=== PATIENT | female | born 1995 | race Native Hawaiian/Other Pacific Islander ===

== ENCOUNTER 2017-02-06 12:43 | Emergency (ER) | payer MEDICAID, OTHER ==
[~2017-02-06] VITALS: Ht 160 cm; Wt 70.8 kg
[~2017-02-06 12:43] MED LIST: AMOX500C2 PO; CIPR-225 PO; FRS325T PO; HYDR-3812 PO; IBP600T1 PO; OXYC-12 PO; PNV91TAB3 PO; POLY17PO23 PO; PREN1TAB39 PO
--- OUTSIDE RECORDS SUMMARY | 2017-02-06 12:50 | XMS REPORT | Continuity of Care Document ---
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 Role Phone ANEL VOSS MD PCP Insurance Providers Payer Name Policy Number Subscriber Name Relationship [employer] [id number] Brina Taylor Self / Same As Patient [facility] [id number] Brina Taylor 16 Self / Same As Patient Advance Directives Directive Response Recorded Date/Time Advance Directives No 10/16/16 3:01am Organ Donor No 10/16/16 3:01am Resuscitation Status Full Code 10/16/16 3:01am Chief Complaint and Reason for Visit Chief Complaint Dental Problems/Pain Reason for Visit Dental caries Problems Active Problems Medical Problem Onset Date Status Dental caries Unknown Acute Medications Current Home Medications Medication Dose Units Route Directions Days/Qty Instructions Start Date Pnv95/Ferrous Fumarate/Fa 1 Each 1 Each Oral Daily 10/16/16 Amoxicillin 500 Mg 500 Mg Oral Three Times A Day 21 10/16/16 Hydrocodone/Acetaminophen 1 Each 1 Each Oral Every 4HRS as needed for Pain 12 10/16/16 Past Home Medications Medication Directions Ordered Status Vits W-Ca,Fe,Fa(<1MG) 1 Each Tablet, 1 Each Oral Daily 06/13/12 Discontinued Ibuprofen 600 Mg Tablet, 1 Each Oral Every 6 Hours as needed 06/15/12 Discontinued Oxycodone Hcl/Acetaminophen 1 Each Tablet, 1 - 2 Each Oral Every 4HRS as needed 06/15/12 Discontinued Ferrous Sulfate 325 Mg Tablet, 1 Tab Oral Daily 06/15/12 Discontinued Polyethylene Glycol 17 Gm Pack, 17 Gm Oral Daily 06/15/12 Discontinued Ciprofloxacin Hcl 500 Mg Tablet, 500 Mg Oral Twice A Day 10/30/15 Discontinued Social History Social History Problem Response Recorded Date/Time Alcohol Use Denies Use 10/30/2015 7:17am Recreational Drug Use No 10/30/2015 7:17am Recent Foreign Travel No 10/16/2016 3:01am Recent Infectious Disease Exposure No 10/16/2016 3:01am Smoking Status Never a Smoker 10/16/2016 3:01am Do you dip or chew tobacco? No 10/30/2015 7:17am Recent Hopitalizations No 10/16/2016 3:01am Query Response Start Date Stop Date Smoking Status Never a Smoker Hospital Discharge Instructions No hospital discharge instructions. Plan of Care Discharge Date 10/16/16 3:27am Disposition 01 HOME, SELF-CARE Condition at Discharge Stable Instructions/Education Provided Dental Pain (DC) Prescriptions See Medication Section Referrals ANEL VOSS MD - Primary Care Physician Additional Instructions/Education All discharge instructions reviewed with patient and/or family. Voiced understanding. Follow-up with a dentist LAY. Keep appointment with your doctor this morning at 9 a.m. as scheduled. Return for worse pain, fever, swelling, breathing or swallowing problems or other concerns as needed. Functional Status No functional status results. Allergies, Adverse Reactions, Alerts No known allergies. Immunizations No immunization records. Vital Signs Acute Vital Signs Vital Response Date/Time Temperature (Fahrenheit) 97.3 degrees F (97.6 - 99.5) 10/16/2016 3:01am Temperature (Calculated Celsius) 36.84053 degrees C (36.4 - 37.5) 10/16/2016 3:01am Temperature Source Temporal 10/16/2016 3:01am Pulse Rate (adult) 82 bpm (60 - 90) 10/16/2016 3:01am Respiratory Rate 18 bpm (12 - 24) 10/16/2016 3:01am O2 Sat by Pulse Oximetry 97 % (88 - 100) 10/16/2016 3:01am Blood Pressure 120/86 mm Hg 10/16/2016 3:01am Blood Pressure Mean 97 mm Hg 10/16/2016 3:01am Pain Numeric Pain Scale 10-Worst Possible Pain 10/16/2016 3:21am Height (Feet) 5 feet 10/16/2016 3:01am Height (Inches) 3 inches 10/16/2016 3:01am Height (Calculated Centimeters) 160.349783 cm 10/16/2016 3:01am Weight (Pounds) 180 pounds 10/16/2016 3:01am Weight (Calculated Grams) 90766.856 gm 10/16/2016 3:01am Weight (Calculated Kilograms) 81.730823 kilograms 10/16/2016 3:01am Calculated BMI 26.57 10/16/2016 3:01am Capillary Refill Capillary Refill Less Than 3 Seconds 10/16/2016 3:01am Results No known relevant diagnostic tests, laboratory data and/or discharge summary. Procedures No known history of procedures. Encounters Encounter Location Arrival/Admit Date Discharge/Depart Date Attending Provider Registered Emergency Room [facility] 10/16/16 2:59am REYMUNDO WILKINSON MD Recent Diagnosis
--- NOTE | 2017-02-06 13:14 | ED Integumentary General ---
General Chief Complaint: Skin/Wound Problems Stated Complaint: POSS BREAST INFECTION Nursing Triage Note: AMB TO ROOM HAS BEEN BREAST FEEDING LAST SEVERAL DAYS BREAST TENDER. THINKS SHE MAY HAVE MASTITIS Source: patient History of Present Illness Time seen by provider: 12:55 Initial Comments PT STATES SHE THINKS SHE HAS MASTITIS PT IS AND BREASTS HAVE BEEN CRACKED AND BLEEDING FOR A COUPLE OF WEEKS LAST NIGHT SHE HAD MILD BODY ACHES AND SUBJECTIVE FEVER--DOES NOT HAVE THOSE SYMPTOMS NOW ( BUT HAS TEMP OF 100.5 ON ARRIVAL TO ER) PT STATES IMMEDIATELY PRIOR TO ARRIVAL, SHE NOTICED SOME SLIGHT REDNESS AND SORENESS TO RIGHT BREAST AND LEFT WORK AND CAME STRAIGHT HERE DID NOT TAKE ANYTHING FOR SYMPTOMS DID NOT ATTEMPT TO CONTACT HER PCP PT STATES SHE HAD MASTITIS IN THE PAST AND THIS IS SIMILAR PCP: DR. VOSS Allergies and Home Medications Allergies Coded Allergies: No Known Drug Allergies (Unverified , 06/13/12) Home Medications Dicloxacillin Sodium 500 Mg Capsule #40 500 MG PO QID Prescribed by: ARYAN ARREGUIN on 02/06/17 1319 Pnv95/Ferrous Fumarate/FA 1 Each Tablet 1 EACH PO DAILY (Reported) Constitutional: see HPI EENTM: no symptoms reported Respiratory: no symptoms reported Cardiovascular: no symptoms reported Gastrointestinal: no symptoms reported Genitourinary: no symptoms reported : No Musculoskeletal: see HPI (BODY ACHES) Skin: see HPI Psychiatric/Neurological: No Symptoms Reported Endocrine: No Symptoms Reported Past Kzvswfj-Tllbrz-Hhbiyh Hx Patient Social History Alcohol Use: Denies Use Recreational Drug Use: No Smoking Status: Never a Smoker Recent Foreign Travel: No Contact w/Someone Who Travel: No Recent Infectious Disease Expo: No Recent Hopitalizations: No Immunizations Up To Date Tetanus Booster (TDap): Unknown PED Vaccines UTD: No Date of Influenza Vaccine: Oct 02, 2015 Seasonal Allergies Seasonal Allergies: No Surgeries HX Surgeries: No Respiratory Hx Respiratory Disorders: No Cardiovascular Hx Cardiac Disorders: No Neurological Hx Neurological Disorders: No Reproductive System Hx Reproductive Disorders: No Genitourinary Hx Genitourinary Disorders: No Gastrointestinal Hx Gastrointestinal Disorders: No Musculoskeletal Hx Musculoskeletal Disorders: No Endocrine Hx Endocrine Disorders: No HEENT HX ENT Disorders: No Cancer Hx Cancer: No Psychosocial Hx Psychiatric Problems: No Integumentary HX Skin/Integumentary Disorder: Yes (MASTITIS) Blood Transfusions Hx Blood Disorders: Yes (ANEMIA) Family Medical History Family Medial History: Patient reports no known family medical history. 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 VERY FAINT AREA OF ERYTHEMA AROUND 1200 AND 3:00. VERY MINIMAL TENDERNESS. NO INDURATION OR EVIDENCE OF ABSCESS. NO DRAINAGE FROM NIPPLE. NO BLEEDING. ) Progress/Results/Core Measures Results/Orders Lab Results Laboratory Tests Test 02/06/17 13:10 Range/Units Alanine Aminotransferase (ALT/SGPT) 24 0-55 U/L Albumin 4.4 3.2-4.5 G/DL Alkaline Phosphatase 133 40-136 U/L Anion Gap 10 5-14 MMOL/L Aspartate Amino Transf (AST/SGOT) 24 5-34 U/L BUN/Creatinine Ratio 12 Basophils # (Auto) 0.0 0.0-0.1 10^3/uL Basophils (%) (Auto) 0 0-10 % Blood Urea Nitrogen 9 7-18 MG/DL Calcium Level 9.7 8.5-10.1 MG/DL Carbon Dioxide Level 25 21-32 MMOL/L Chloride Level 104 98-107 MMOL/L Creatinine 0.75 0.60-1.30 MG/DL Eosinophils # (Auto) 0.1 0.0-0.3 10^3/uL Eosinophils (%) (Auto) 1 0-10 % Erythrocyte Sedimentation Rate 11 0-20 MM/HR Estimat Glomerular Filtration Rate > 60 Glucose Level 92 70-105 MG/DL Hematocrit 41 35-52 % Hemoglobin 13.7 11.5-16.0 G/DL Lactic Acid Level 1.21 0.50-2.00 MMOL/L Lymphocytes # (Auto) 1.7 1.0-4.0 X 10^3 Lymphocytes (%) (Auto) 18 12-44 % Mean Corpuscular Hemoglobin 27 25-34 PG Mean Corpuscular Hemoglobin Concent 34 32-36 G/DL Mean Corpuscular Volume 81 80-99 FL Mean Platelet Volume 10.0 7.4-10.4 FL Monocytes # (Auto) 0.6 0.0-1.0 X 10^3 Monocytes (%) (Auto) 6 0-12 % Neutrophils # (Auto) 6.8 1.8-7.8 X 10^3 Neutrophils (%) (Auto) 74 42-75 % Platelet Count 208 130-400 10^3/uL Potassium Level 3.6 3.6-5.0 MMOL/L Red Blood Count 5.03 4.35-5.85 10^6/uL Red Cell Distribution Width 13.6 10.0-14.5 % Sodium Level 139 135-145 MMOL/L Total Bilirubin 0.3 0.1-1.0 MG/DL Total Protein 8.2 6.4-8.2 G/DL White Blood Count 9.2 4.3-11.0 10^3/uL Micro Results Microbiology 02/06/17 Blood Culture - Preliminary, Resulted No growth 02/06/17 Blood Culture - Preliminary, Resulted No growth My Orders Orders-ARYAN ARREGUIN DO Saline Lock/Iv-Start (02/06/17 12:57) Cbc With Automated Diff (02/06/17 12:57) Comprehensive Metabolic Panel (02/06/17 12:57) Lactic Acid Analyzer (02/06/17 12:57) Blood Culture (02/06/17 12:57) Erythrocyte Sedimentation Rate (02/06/17 12:57) Clindamycin 600 Mg/50 Ml Ivpb (Cleocin P (02/06/17 13:15) Medications Given in ED Vital Signs/I&O Vital Sign - Last 12Hours 02/06/17 02/06/17 13:01 14:18 Temp 100.5 Pulse 90 90 Resp 18 18 B/P 127/81 Pulse Ox 98 98 O2 Delivery Room Air Blood Pressure Mean: 96 Departure Impression Impression: Primary Impression: Acute mastitis of right breast Disposition: 01 HOME, SELF-CARE Condition: Stable Departure-Patient Inst. Referrals: ANEL VOSS MD (PCP/Family) Primary Care Physician Patient Instructions: Mastitis (DC) Add. Discharge Instructions: TYLENOL AND MOTRIN NEEDED FOR PAIN OR FEVER FOLLOW UP WITH DR. VOSS IN 2-3 DAYS FOR FURTHER CARE All discharge instructions reviewed with patient and/or family. Voiced understanding. Scripts Dicloxacillin Sodium 500 Mg [id number] Mg PO QID #40 CAP Prov:ARYAN ARREGUIN K DO 02/06/17 RODRÍGUEZ,ARYAN K DO Feb 06, 2017 13:[address] VOSS IN 2-3 DAYS FOR FURTHER CARE All discharge instructions reviewed with patient and/or family. Voiced understanding. Scripts Dicloxacillin Sodium 500 Mg [id number] Mg PO QID #40 CAP Prov:NAZARIO ARREGUINA K DO 02/06/17 RODRÍGUEZ,ARYAN K DO Feb 06, 2017 13:14
[2017-02-06] MEDS ORDERED: CLINDAMYCIN 600 MG/50 ML IVPB 50 ML IV ONE (13:15)
[2017-02-06] MEDS ORDERED: DICL500C PO (13:19)
[2017-02-06 13:26] LABS: BASOPHILS % (AUTO) 0 % (0-10); EOSINOPHILS # (AUTO) 0.1 10^3/uL (0.0-0.3); EOSINOPHILS % (AUTO) 1 % (0-10); LYMPHOCYTES # (AUTO) 1.7 X 10^3 (1.0-4.0); LYMPHOCYTES % (AUTO) 18 % (12-44); MEAN CORPUSCULAR HEMOGLOBIN 27 PG (25-34); MEAN CORPUSCULAR HGB CONC 34 G/DL (32-36); MEAN CORPUSCULAR VOLUME 81 FL (80-99); MONOCYTES # (AUTO) 0.6 X 10^3 (0.0-1.0); MONOCYTES % (AUTO) 6 % (0-12); NEUTROPHILS # (AUTO) 6.8 X 10^3 (1.8-7.8); NEUTROPHILS % (AUTO) 74 % (42-75); PLATELET COUNT 208 10^3/uL (130-400); RED BLOOD COUNT 5.03 10^6/uL (4.35-5.85); RED CELL DISTRIBUTION WIDTH 13.6 % (10.0-14.5); WHITE BLOOD COUNT 9.2 10^3/uL (4.3-11.0)
[2017-02-06 13:45] LABS: ALANINE AMINOTRANSFERASE 24 U/L (0-55); ALBUMIN 4.4 G/DL (3.2-4.5); ANION GAP 10 MMOL/L (5-14); ASPARTATE AMINO TRANSFERASE 24 U/L (5-34); BILIRUBIN,TOTAL 0.3 MG/DL (0.1-1.0); BLOOD UREA NITROGEN 9 MG/DL (7-18); BUN/CREATININE RATIO 12; CALCIUM 9.7 MG/DL (8.5-10.1); CARBON DIOXIDE 25 MMOL/L (21-32); CHLORIDE 104 MMOL/L (98-107); CREATININE SERUM 0.75 MG/DL (0.60-1.30); ERYTHROCYTE SEDIMENTATION RATE 11 MM/HR (0-20); GFR ESTIMATED > 60; GLUCOSE 92 MG/DL (70-105); POTASSIUM 3.6 MMOL/L (3.6-5.0); SODIUM 139 MMOL/L (135-145); TOTAL PROTEIN 8.2 G/DL (6.4-8.2)
[2017-02-06 14:18] VITALS: BP 127/81
== END 2017-02-06 14:18 | disposition home or self-care (01) ==
LOC: EDUNIT# 12:43 → ER 12:46
DX: N61.0 Mastitis without abscess (principal)
CPT/HCPCS: 36415; 80053; 83605; 85025; 85652; 87040; 96365

== ENCOUNTER 2017-05-28 18:52 | Emergency (ER) | payer MEDICAID ==
[~2017-05-28] VITALS: Ht 160 cm; Wt 65.8 kg
[~2017-05-28 18:52] MED LIST changes: +DICL500C PO
--- OUTSIDE RECORDS SUMMARY | 2017-05-28 18:58 | XMS REPORT ---
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 Info Not Available Non Drug Allergy Problems Problem Type Condition ICD-9 Code Onset Dates Condition Status Assessment Encounter for PPD test V74.1 Active Assessment Pre-employment examination V70.5 Active Problem Acute upper respiratory infections of unspecified site 465.9 Active Medications No Known Medications Procedures Procedure Coding System Code Date DRUG SCREEN NON TLC DEVICES CPT-4 54986 Aug 20, 2015 Office Visit, Est Pt., Level 3 CPT-4 34759 Aug 20, 2015 TB INTRADERMAL TEST CPT-4 50394 Aug 20, 2015 Vital Signs Date/Time: Aug 20, 2015 Temperature 97.9 F Weight 160 lbs Height 63 in BMI 28.34 Index Blood Pressure Diastolic 66 mmHg Blood Pressure Systolic 104 mmHg Cardiac Monitoring Heart Rate 68 bpm Results Name Result Date Reference Range Unit Abnormality Flag TB INTRADERMAL URINE DRUG SCREEN (IN HOUSE) Summary Purpose eClinicalWorks Submission
--- OUTSIDE RECORDS SUMMARY | 2017-05-28 18:58 | XMS REPORT | Continuity of Care Document ---
Author Author [facility] Address Unknown Phone Unavailable Allergies Active Description Code Type Severity Reaction Onset Reported/Identified Relationship to Patient Clinical Status Yes No Known Drug Allergies [id number] Drug Allergy Unknown N/ A 06/13/2012 Medications Problems Date Dx Coded Attending Type Code Diagnosis Diagnosed By 10/15/2010 Ot 626.4 IRREGULAR MENSTRUATION 06/15/2012 Ot 669.81 COMP LAB/DELIV NEC-DELIV 06/15/2012 Ot V06.1 [id number], COMBINED [ 06/15/2012 Ot V06.4 [id number] 06/15/2012 Ot V27.0 DELIVER-SINGLE LIVEBORN 11/29/2014 ENRIKE SIMMS APRN 465.9 UPPER RESPIRATORY INFECTION 10/30/2015 Ot 649.63 10/30/2015 JASPREET GAINES, ASHLEY Felton Ot N39.0 URINARY TRACT INFECTION, SITE NOT SPECIF 03/20/2016 ANEL VOSS MD Ot Z34.90 ENCNTR FOR SUPRVSN OF NORMAL , 04/03/2016 ANEL VOSS MD Ot Z34.90 ENCNTR FOR SUPRVSN OF NORMAL , 05/28/2016 ANEL VOSS MD Ot Z34.90 ENCNTR FOR SUPRVSN OF NORMAL , 05/29/2016 ANEL VOSS MD Ot Z36 ENCOUNTER FOR SCREENING OF MOT 05/29/2016 ANEL VOSS MD, Ot Z3A.19 19 WEEKS GESTATION OF 06/01/2016 ANEL VOSS MD, Ot Z36 ENCOUNTER FOR SCREENING OF MOT 06/01/2016 ANEL VOSS MD, Ot Z3A.19 19 WEEKS GESTATION OF 06/08/2016 ANEL VOSS MD Ot Z36 ENCOUNTER FOR SCREENING OF MOT 06/08/2016 ANEL VOSS MD, Ot Z3A.19 19 WEEKS GESTATION OF 07/10/2016 Ot 649.63 UTERINE SIZE DATE DISCREPANCY, ANTEPARTU 07/10/2016 ANEL VOSS MD Ot Z36 ENCOUNTER FOR SCREENING OF MOT 07/10/2016 ANEL VOSS MD Ot Z3A.19 19 WEEKS GESTATION OF 07/11/2016 ANEL VOSS MD Ot Z36 ENCOUNTER FOR SCREENING OF MOT 07/11/2016 BIPIN GAINES, ANEL Brown Ot Z3A.19 19 WEEKS GESTATION OF 07/16/2016 ANEL VOSS MD Ot Z36 ENCOUNTER FOR SCREENING OF MOT 07/16/2016 BIPIN GAINES, ANEL Brown Ot Z3A.19 19 WEEKS GESTATION OF 07/16/2016 Ot 649.63 UTERINE SIZE DATE DISCREPANCY, ANTEPARTU 07/16/2016 ANEL VOSS MD Ot Z36 ENCOUNTER FOR SCREENING OF MOT 07/16/2016 ANEL VOSS MD Ot Z3A.19 19 WEEKS GESTATION OF 07/31/2016 Ot 649.63 UTERINE SIZE DATE DISCREPANCY, ANTEPARTU 07/31/2016 ANEL VOSS MD Ot Z34.90 ENCNTR FOR SUPRVSN OF NORMAL , 07/31/2016 ANEL VOSS MD Ot Z36 ENCOUNTER FOR SCREENING OF MOT 07/31/2016 ANEL VOSS MD Ot Z3A.19 19 WEEKS GESTATION OF 07/31/2016 ANEL VOSS MD Ot Z36 ENCOUNTER FOR SCREENING OF MOT 08/02/2016 ANEL VOSS MD Ot Z36 ENCOUNTER FOR SCREENING OF MOT 08/13/2016 ANEL VOSS MD Ot Z36 ENCOUNTER FOR SCREENING OF MOT 08/15/2016 ANEL VOSS MD Ot Z36 ENCOUNTER FOR SCREENING OF MOT 10/16/2016 Ot 649.63 UTERINE SIZE DATE DISCREPANCY, ANTEPARTU 10/16/2016 ANEL VOSS MD Ot Z34.90 ENCNTR FOR SUPRVSN OF NORMAL , 10/16/2016 ANEL VOSS MD Ot Z36 ENCOUNTER FOR SCREENING OF MOT 10/16/2016 ANEL VOSS MD Ot Z3A.19 19 WEEKS GESTATION OF 10/16/2016 ANEL VOSS MD, Ot Z36 ENCOUNTER FOR SCREENING OF MOT 10/16/2016 Ot 649.63 UTERINE SIZE DATE DISCREPANCY, ANTEPARTU 10/16/2016 ANEL VOSS MD, Ot Z34.90 ENCNTR FOR SUPRVSN OF NORMAL , 10/16/2016 ANEL VOSS MD, Ot Z36 ENCOUNTER FOR SCREENING OF MOT 10/16/2016 ANEL VOSS MD, Ot Z3A.19 19 WEEKS GESTATION OF 10/16/2016 ANEL VOSS MD, Ot Z36 ENCOUNTER FOR SCREENING OF MOT 10/16/2016 REYMUNDO WILKINSON MD Ot K02.9 DENTAL CARIES, UNSPECIFIED 10/16/2016 REYMUNDO WILKINSON MD, Ot K08.9 DISORDER OF TEETH AND SUPPORTING STRUCTU 10/26/2016 ANEL VOSS MD, Ot O48.0 POST-TERM 10/26/2016 ANEL VOSS MD, Ot Z23 ENCOUNTER FOR IMMUNIZATION 10/26/2016 ANEL VOSS MD, Ot Z37.0 SINGLE LIVE 10/26/2016 ANEL VOSS MD, Ot Z3A.41 41 WEEKS GESTATION OF 11/01/2016 REYMUNDO WILKINSON MD Ot K02.9 DENTAL CARIES, UNSPECIFIED 11/01/2016 REYMUNDO WILKINSON MD Ot K08.9 DISORDER OF TEETH AND SUPPORTING STRUCTU 02/01/2017 ANEL VOSS MD, Ot Z34.90 ENCNTR FOR SUPRVSN OF NORMAL , 02/06/2017 Ot 649.63 UTERINE SIZE DATE DISCREPANCY, ANTEPARTU 02/06/2017 ANEL VOSS MD, Ot Z34.90 ENCNTR FOR SUPRVSN OF NORMAL , 02/06/2017 ANEL VOSS MD, Ot Z36 ENCOUNTER FOR SCREENING OF MOT 02/06/2017 ANEL VOSS MD, Ot Z3A.19 19 WEEKS GESTATION OF 02/06/2017 ANEL VOSS MD, Ot Z36 ENCOUNTER FOR SCREENING OF MOT 02/06/2017 RODRÍGUEZ DO, ARYAN K Ot N61.0 MASTITIS WITHOUT ABSCESS 02/06/2017 Ot 649.63 UTERINE SIZE DATE DISCREPANCY, ANTEPARTU 02/06/2017 ANEL VOSS MD, Ot Z34.90 ENCNTR FOR SUPRVSN OF NORMAL , 02/06/2017 ANEL VOSS MD, Ot Z36 ENCOUNTER FOR SCREENING OF MOT 02/06/2017 ANEL VOSS MD, Ot3A.19 19 WEEKS GESTATION OF 02/06/2017 ANEL VOSS MD, Ot36 ENCOUNTER FOR SCREENING OF MOT 02/06/2017 ANEL VOSS MD, Ot Z34.90 ENCNTR FOR SUPRVSN OF NORMAL , 02/06/2017 ANEL VOSS MD, Ot36 ENCOUNTER FOR SCREENING OF MOT 02/06/2017 ANEL VOSS MD, Ot3A.19 19 WEEKS GESTATION OF 02/06/2017 ANEL VOSS MD, Ot36 ENCOUNTER FOR SCREENING OF MOT 02/07/2017 ARYAN ARREGUIN DO Ot N61.0 MASTITIS WITHOUT ABSCESS 02/12/2017 RODRÍGUEZ SAM ARYAN K Ot N61.0 MASTITIS WITHOUT ABSCESS 02/14/2017 ARYAN ARREGUIN DO K Ot N61.0 MASTITIS WITHOUT ABSCESS Procedures Code Description Performed By Performed On 72.71 VACUUM EXT DEL W EPISIOT 06/13/2012 [id number] DIVISION OF FEMALE PERINEUM, EXTERNAL AP 10/24/2016 [id number] EXTRACTION OF PRODUCTS OF CONCEPTION, [place] 10/24/2016 [id number] INTRODUCE OTH THERAP SUBST IN PERIPH VEI 10/24/2016 Results Test Result Range Complete blood count (CBC) with automated white blood cell (WBC) differential - 10/24/16 06:45 Blood leukocytes automated count (number/volume) 8.8 10*3/ uL 4.3-11.0 Blood erythrocytes automated count (number/volume) 4.22 10*6 /uL 4.35-5.85 Venous blood hemoglobin measurement (mass/volume) 11.2 g/dL 11.5-16.0 Blood hematocrit (volume fraction) 34 % 35-52 Automated erythrocyte mean corpuscular volume 81 [foz_us] 80-99 Automated erythrocyte mean corpuscular hemoglobin (mass per erythrocyte) 27 pg 25-34 Automated erythrocyte mean corpuscular hemoglobin concentration measurement ( mass/volume) 33 g/dL 32-36 Automated erythrocyte distribution width ratio 15.9 % 10.0-14.5 Automated blood platelet count (count/volume) 242 10*3/uL 130-400 Automated blood platelet mean volume measurement 9.9 [foz_us ] 7.4-10.4 Automated blood neutrophils/100 leukocytes 69 % 42-75 Automated blood lymphocytes/100 leukocytes 23 % 12-44 Blood monocytes/100 leukocytes 7 % 0-12 Automated blood eosinophils/100 leukocytes 1 % 0-10 Automated blood basophils/100 leukocytes 0 % 0-10 Blood neutrophils automated count (number/volume) 6.0 10*3 1.8-7.8 Blood lymphocytes automated count (number/volume) 2.0 10*3 1.0-4.0 Blood monocytes automated count (number/volume) 0.6 10*3 0.0-1.0 Automated eosinophil count 0.1 10*3/uL 0.0-0.3 Automated blood basophil count (count/volume) 0.0 10*3/uL 0.0-0.1 Blood type T Indirect antibody screen panel - 10/24/16 06:45 ABO+Rh group OP NRG Transfusion band number [id number] Blood group antibody screen NEGATIVE NR Complete blood count (CBC) with automated white blood cell (WBC) differential - 10/25/16 06:00 Blood leukocytes automated count (number/volume) 13.6 10*3/ uL 4.3-11.0 Blood erythrocytes automated count (number/volume) 3.71 10*6 /uL 4.35-5.85 Venous blood hemoglobin measurement (mass/volume) 9.9 g/dL 11.5-16.0 Blood hematocrit (volume fraction) 31 % 35-52 Automated erythrocyte mean corpuscular volume 82 [foz_us] 80-99 Automated erythrocyte mean corpuscular hemoglobin (mass per erythrocyte) 27 pg 25-34 Automated erythrocyte mean corpuscular hemoglobin concentration measurement ( mass/volume) 33 g/dL 32-36 Automated erythrocyte distribution width ratio 16.1 % 10.0-14.5 Automated blood platelet count (count/volume) 201 10*3/uL 130-400 Automated blood platelet mean volume measurement 9.5 [foz_us ] 7.4-10.4 Automated blood neutrophils/100 leukocytes 72 % 42-75 Automated blood lymphocytes/100 leukocytes 21 % 12-44 Blood monocytes/100 leukocytes 7 % 0-12 Automated blood eosinophils/100 leukocytes 1 % 0-10 Automated blood basophils/100 leukocytes 0 % 0-10 Blood neutrophils automated count (number/volume) 9.8 10*3 1.8-7.8 Blood lymphocytes automated count (number/volume) 2.8 10*3 1.0-4.0 Blood monocytes automated count (number/volume) 0.9 10*3 0.0-1.0 Automated eosinophil count 0.1 10*3/uL 0.0-0.3 Automated blood basophil count (count/volume) 0.0 10*3/uL 0.0-0.1 Complete blood count (CBC) with automated white blood cell (WBC) differential - 02/06/17 13:10 Blood leukocytes automated count (number/volume) 9.2 10*3/ uL 4.3-11.0 Blood erythrocytes automated count (number/volume) 5.03 10*6 /uL 4.35-5.85 Venous blood hemoglobin measurement (mass/volume) 13.7 g/dL 11.5-16.0 Blood hematocrit (volume fraction) 41 % 35-52 Automated erythrocyte mean corpuscular volume 81 [foz_us] 80-99 Automated erythrocyte mean corpuscular hemoglobin (mass per erythrocyte) 27 pg 25-34 Automated erythrocyte mean corpuscular hemoglobin concentration measurement ( mass/volume) 34 g/dL 32-36 Automated erythrocyte distribution width ratio 13.6 % 10.0-14.5 Automated blood platelet count (count/volume) 208 10*3/uL 130-400 Automated blood platelet mean volume measurement 10.0 [foz_ us] 7.4-10.4 Automated blood neutrophils/100 leukocytes 74 % 42-75 Automated blood lymphocytes/100 leukocytes 18 % 12-44 Blood monocytes/100 leukocytes 6 % 0-12 Automated blood eosinophils/100 leukocytes 1 % 0-10 Automated blood basophils/100 leukocytes 0 % 0-10 Blood neutrophils automated count (number/volume) 6.8 10*3 1.8-7.8 Blood lymphocytes automated count (number/volume) 1.7 10*3 1.0-4.0 Blood monocytes automated count (number/volume) 0.6 10*3 0.0-1.0 Automated eosinophil count 0.1 10*3/uL 0.0-0.3 Automated blood basophil count (count/volume) 0.0 10*3/uL 0.0-0.1 Blood lactic acid measurement (moles/volume) - 02/06/17 13:10 Blood lactic acid measurement (moles/volume) 1.21 mmol/L 0.50-2.00 Erythrocyte sedimentation rate by westergren method - 02/06/17 13:10 Erythrocyte sedimentation rate by westergren method 11 mm 0-20 Comprehensive metabolic panel - 02/06/17 13:10 Serum or plasma sodium measurement (moles/volume) 139 mmol/ L 135-145 Serum or plasma potassium measurement (moles/volume) 3.6 mmol/L 3.6-5.0 Serum or plasma chloride measurement (moles/volume) 104 mmol /L 98-107 Carbon dioxide 25 mmol/L 21-32 Serum or plasma anion gap determination (moles/volume) 10 mmol/L 5-14 Serum or plasma urea nitrogen measurement (mass/volume) 9 mg /dL 7-18 Serum or plasma creatinine measurement (mass/volume) 0.75 mg /dL 0.60-1.30 Serum or plasma urea nitrogen/creatinine mass ratio 12 NRG Serum or plasma creatinine measurement with calculation of estimated glomerular filtration rate > NRG Serum or plasma glucose measurement (mass/volume) 92 mg/dL 70-105 Serum or plasma calcium measurement (mass/volume) 9.7 mg/dL 8.5-10.1 Serum or plasma total bilirubin measurement (mass/volume) 0.3 mg/dL 0.1-1.0 Serum or plasma alkaline phosphatase measurement (enzymatic activity/volume) 133 U/L 40-136 Serum or plasma aspartate aminotransferase measurement (enzymatic activity/ volume) 24 U/L 5-34 Serum or plasma alanine aminotransferase measurement (enzymatic activity/volume ) 24 U/L 0-55 Serum or plasma protein measurement (mass/volume) 8.2 g/dL 6.4-8.2 Serum or plasma albumin measurement (mass/volume) 4.4 g/dL 3.2-4.5 Bacterial blood culture - 02/06/17 13:10 Bacterial blood culture NG NRG Bacterial blood culture - 02/06/17 13:37 Bacterial blood culture NG NRG Encounters ACCT No. Visit Date/Time Discharge Status Pt. Type Provider Facility Loc./Unit Complaint [id number] 11/29/2014 17:49:00 11/29/2014 23: 59:59 CLS Outpatient ENRIKE SIMMS APRN
--- OUTSIDE RECORDS SUMMARY | 2017-05-28 18:58 | XMS REPORT ---
Author Author CEDRIC HESS [facility] eClinicalWorks Address Unknown Phone Unavailable Care Team Providers Care Electromechanical Assembler Name Role Phone CEDRIC HESS Unavailable Allergies No Known Allergies Problems Problem Type Condition Code Onset Dates Condition Status Assessment Encounter for immunization Z23 Active Problem Acute upper respiratory infections of unspecified site 465.9 Active Medications No Known Medications Procedures Procedure Coding System Code Date TDAP (BOOSTRIX) CPT-4 67340 Sep 26, 2015 SINGLE IMMUNIZATION ADMIN CPT-4 29897 Sep 26, 2015 FLUARIX QUAD (3 & UP)-GSK-2014 CPT-4 80916 Sep 26, 2015 IMMUNIZATION ADMIN, EACH ADD (please include units) CPT-4 96077 Sep 26, 2015 Results No Known Results Immunizations Vaccine Administration Date FLUARIX QUAD (3 & UP)-GSK-2014Sep 26, 2015 TDAP (BOOSTRIX) Sep 26, 2015 Summary Purpose eClinicalWorks Submission
--- OUTSIDE RECORDS SUMMARY | 2017-05-28 18:58 | XMS REPORT ---
Author Author JARAD DAVIS Organization eClinicalWorks Address Unknown Phone Unavailable Care Team Providers Care Director Of Acquisitions Name Role Phone JARAD DAVIS CP Unavailable Allergies, Adverse Reactions, Alerts Substance Reaction Event Type N.K.D.A. Info Not Available Non Drug Allergy Problems Problem Type Condition Code Onset Dates Condition Status Problem Acute upper respiratory infections of unspecified site 465.9 Active Assessment Otitis media H66.90 Active Problem Otitis media H66.90 Active Assessment Seasonal allergic rhinitis J30.2 Active Medications Medication Code System Code Instructions Start Date End Date Status Dosage Azithromycin [facility] [address]-46 250 MG Orally Once a day Oct 06, 2015 Oct 11, 2015 2 tablets on the first day, then 1 tablet daily for 4 days Claritin [facility] [address]-32 10 MG Orally Once a day Oct 06, 2015 Dec 05, 2015 1 tablet Procedures Procedure Coding System Code Date Office Visit, Est Pt., Level 3 CPT-4 58987 Oct 06, 2015 Vital Signs Date/Time: Oct 06, 2015 Temperature 97.9 F Weight 157.8 lbs Height 63 in BMI 27.95 Index Blood Pressure Diastolic 62 mmHg Blood Pressure Systolic 104 mmHg Cardiac Monitoring Heart Rate 64 bpm Results No Known Results Summary Purpose eClinicalWorks Submission
--- OUTSIDE RECORDS SUMMARY | 2017-05-28 18:58 | XMS REPORT ---
Author Author ANEL VOSS [facility] eClinicalWorks Address Unknown Phone Unavailable Care Team Providers Care Hypoid Gear Generator Name Role Phone ANEL VOSS Unavailable Allergies No Known Allergies Problems Problem Type Condition ICD-9 Code Onset Dates Condition Status Problem Acute upper respiratory infections of unspecified site 465.9 Active Medications No Known Medications Results No Known Results Summary Purpose eClinicalWorks Submission
--- OUTSIDE RECORDS SUMMARY | 2017-05-28 18:58 | XMS REPORT ---
Author Author PACHECO MANNING [facility] eClinicalWorks Address Unknown Phone Unavailable Care Team Providers Care Planning Manager Name Role Phone PACHECO MANNING CP Unavailable Allergies No Known Allergies Problems Problem Type Condition ICD-9 Code Onset Dates Condition Status Assessment Dental examination V72.2 Active Problem Acute upper respiratory infections of unspecified site 465.9 Active Medications No Known Medications Procedures Procedure Coding System Code Date INTRAORL-PERIAPICAL 1 FILM 12948 CPT-4 D0220 Jul 26, 2015 BITEWING - SINGLE FILM CPT-4 D0270 Jul 26, 2015 LTD ORAL EVALUATION - PROBLEM FOCUS CPT-4 D0140 Jul 26, 2015 Results No Known Results Summary Purpose eClinicalWorks Submission
[2017-05-28] MEDS ORDERED: biotin (19:22)
[2017-05-28] MEDS ORDERED: FENUGREEK (19:22)
[2017-05-28] MEDS ORDERED: LACTATED RINGERS 1,000 ML IV ONE (19:44)
[2017-05-28] MEDS ORDERED: ACETAMINOPHEN 500 MG TAB (TYLENOL) PO STA (19:44)
[2017-05-28] MEDS ORDERED: IBUPROFEN 800 MG (MOTRIN) TAB PO STA (19:44)
[2017-05-28] MEDS ORDERED: cefTRIAXone INJECTION 2,000 MG in NS (IVPB) 50 ML IV ONE (19:45)
[2017-05-28 20:26] LABS: BASOPHILS % (AUTO) 0 % (0-10); EOSINOPHILS # (AUTO) 0.1 10^3/uL (0.0-0.3); EOSINOPHILS % (AUTO) 1 % (0-10); LYMPHOCYTES # (AUTO) 1.3 X 10^3 (1.0-4.0); LYMPHOCYTES % (AUTO) 17 % (12-44); MEAN CORPUSCULAR HEMOGLOBIN 27 PG (25-34); MEAN CORPUSCULAR HGB CONC 33 G/DL (32-36); MEAN CORPUSCULAR VOLUME 81 FL (80-99); MEAN PLATELET VOLUME 9.9 FL (7.4-10.4); MONOCYTES # (AUTO) 0.2 X 10^3 (0.0-1.0); MONOCYTES % (AUTO) 3 % (0-12); NEUTROPHILS # (AUTO) 5.8 X 10^3 (1.8-7.8); NEUTROPHILS % (AUTO) 79 % (42-75); PLATELET COUNT 229 10^3/uL (130-400); RED BLOOD COUNT 5.09 10^6/uL (4.35-5.85); RED CELL DISTRIBUTION WIDTH 11.9 % (10.0-14.5); WHITE BLOOD COUNT 7.4 10^3/uL (4.3-11.0)
[2017-05-28 20:47] LABS: ALANINE AMINOTRANSFERASE 28 U/L (0-55); ALBUMIN 4.7 GM/DL (3.2-4.5); ANION GAP 14 MMOL/L (5-14); ASPARTATE AMINO TRANSFERASE 29 U/L (5-34); BILIRUBIN,TOTAL 0.2 MG/DL (0.1-1.0); BLOOD UREA NITROGEN 12 MG/DL (7-18); BUN/CREATININE RATIO 15; CALCIUM 10.3 MG/DL (8.5-10.1); CARBON DIOXIDE 23 MMOL/L (21-32); CHLORIDE 103 MMOL/L (98-107); CREATININE SERUM 0.78 MG/DL (0.60-1.30); GFR ESTIMATED > 60; GLUCOSE 103 MG/DL (70-105); POTASSIUM 3.5 MMOL/L (3.6-5.0); SODIUM 140 MMOL/L (135-145); TOTAL PROTEIN 8.5 GM/DL (6.4-8.2)
[2017-05-28] MEDS ORDERED: DICL500C PO (21:09)
[2017-05-28] MEDS ORDERED: HYDR-3816 PO (21:09)
--- NOTE | 2017-05-28 21:09 | ED General ---
General Chief Complaint: General Problems/Pain Stated Complaint: LT BREAST PAIN Nursing Triage Note: Pt to ED 9, reports developing left breast pain around noon today. Pt is . is 7 mo old. Hx bilat mastitis Nursing Sepsis Screen: No Definite Risk Source of Information: Patient History of Present Illness Time Seen by Provider: 19:30 Initial Comments PT ARRIVES VIA POV C/O LEFT BREAST PAIN AND SWELLING SINCE NOON TODAY HAS HAD SUBJECTIVE FEVER THIS AFTERNOON-- PT IS HAVING CHILLS ON ARRIVAL TO ER PT HAS NOT TAKEN ANYTHING FOR PAIN OR FEVER PT DELIVERED 10/24/16, AND IS STILL , BUT WORKS 8 HOURS A DAY AND DOES NOT PUMP AT ALL DURING THAT TIME, BUT DOES FEED EVERY COUPLE OF HOURS WHEN SHE IS AT HOME AND AWAKE. PT FED/PUMPED JUST PRIOR TO ARRIVAL. PT HAS HAD A FEW BOUTS OF MASTITIS WITH THIS BABY AND WITH PREVIOUS BABY, AND THIS IS SIMILAR LAST TIME SHE WAS SEEN HERE WAS 02/06/2017 AND SYMPTOMS WERE MILD AND ON RIGHT BREAST, GIVEN RX FOR DICLOXACILLIN, BUT PT DID NOT GET IT FILLED--STATES HER SYMPTOMS WERE BETTER BY THE NEXT DAY. PCP: DR. VOSS Allergies and Home Medications Allergies Coded Allergies: No Known Drug Allergies (Unverified , 06/13/12) Home Medications Dicloxacillin Sodium 500 Mg Capsule, 500 MG PO QID, #40 Prescribed by: ARYAN ARREGUIN on 05/28/172108 Hydrocodone/Acetaminophen 1 Each Tablet, 1-2 EACH PO Q4H, #10 Prescribed by: ARYAN ARREGUIN on 05/28/172108 [biotin] , (Reported) [fenugreek] , (Reported) Constitutional: see HPI, chills, fever EENTM: no symptoms reported Respiratory: no symptoms reported Cardiovascular: no symptoms reported Gastrointestinal: no symptoms reported Genitourinary: no symptoms reported : No LMP: Mar 02, 2017 (NO CONTROL) Musculoskeletal: no symptoms reported Skin: see HPI Psychiatric/Neurological: No Symptoms Reported Hematologic/Lymphatic: No Symptoms Reported Immunological/Allergic: no symptoms reported Past Ejpptdo-Htyjlp-Wpysqj Hx Patient Social History Alcohol Use: Denies Use Recreational Drug Use: No Smoking Status: Never a Smoker 2nd Hand Smoke Exposure: No Recent Foreign Travel: No Contact w/Someone Who Travel: No Recent Infectious Disease Expo: No Recent Hopitalizations: No Immunizations Up To Date Tetanus Booster (TDap): Unknown PED Vaccines UTD: No Date of Influenza Vaccine: Oct 02, 2015 Seasonal Allergies Seasonal Allergies: No Surgeries HX Surgeries: No Respiratory Hx Respiratory Disorders: No Cardiovascular Hx Cardiac Disorders: No Neurological Hx Neurological Disorders: No Reproductive System : No (Last LMP 2 mo ago, pt irregular) Hx : 2 Hx Para: 2 Hx Total # of Abortions (Spona: 0 Hx Reproductive Disorders: No Genitourinary Hx Genitourinary Disorders: No Gastrointestinal Hx Gastrointestinal Disorders: No Musculoskeletal Hx Musculoskeletal Disorders: No Endocrine Hx Endocrine Disorders: No HEENT HX ENT Disorders: No Cancer Hx Cancer: No Psychosocial Hx Psychiatric Problems: No Integumentary HX Skin/Integumentary Disorder: Yes (MASTITIS) Blood Transfusions Hx Blood Disorders: Yes (ANEMIA) Family Medical History Family Medial History: Patient reports no known family medical history. Physical Exam Vital Signs Vital Sign - Last 12Hours 05/28/17 19:05 Temp 99.1 Pulse 89 Resp 18 B/P (MAP) 129/55 Pulse Ox 100 O2 Delivery Room Air Capillary Refill : Less Than 3 Seconds General Appearance: WD/WN, Other (SHIVERING, HEAVILY BUNDLED) HEENT: PERRL/EOMI Neck: Normal Inspection Respiratory: Normal Breath Sounds, No Accessory Muscle Use, No Respiratory Distress, Other (LEFT BREAST EXTREMELY TENDER. VERY INGORGED, IS AXILLARY BREAST TISSUE. NO DISCRETE AREAS OF ABSCESS. BREAST IS WARM, BUT NO ERYTHEMA. NO DRAINAGE FROM NIPPLE AND NO STREAKS. ) Cardiovascular: No Edema, No JVD, No Murmur, Normal Peripheral Pulses, Tachycardia Gastrointestinal: Non Tender, Soft Back: Normal Inspection Extremity: Normal Inspection, No Pedal Edema Neurologic/Psychiatric: Alert, Oriented x3, No Motor/Sensory Deficits, assisted living associate II- XII Norm as Tested, Other (TEARFUL) Skin: Normal Color, Warm/Dry Focused Exam Lactic Acid Level Laboratory Tests Test 05/28/17 20:10 Lactic Acid Level 1.43 MMOL/L (0.50-2.00) Progress/Results/Core Measures Results/Orders Lab Results Laboratory Tests Test 05/28/17 20:10 Range/Units White Blood Count 7.4 4.3-11.0 10^3/uL Red Blood Count 5.09 4.35-5.85 10^6/uL Hemoglobin 13.6 11.5-16.0 G/DL Hematocrit 41 35-52 % Mean Corpuscular Volume 81 80-99 FL Mean Corpuscular Hemoglobin 27 25-34 PG Mean Corpuscular Hemoglobin Concent 33 32-36 G/DL Red Cell Distribution Width 11.9 10.0-14.5 % Platelet Count 229 130-400 10^3/uL Mean Platelet Volume 9.9 7.4-10.4 FL Neutrophils (%) (Auto) 79 H 42-75 % Lymphocytes (%) (Auto) 17 12-44 % Monocytes (%) (Auto) 3 0-12 % Eosinophils (%) (Auto) 1 0-10 % Basophils (%) (Auto) 0 0-10 % Neutrophils # (Auto) 5.8 1.8-7.8 X 10^3 Lymphocytes # (Auto) 1.3 1.0-4.0 X 10^3 Monocytes # (Auto) 0.2 0.0-1.0 X 10^3 Eosinophils # (Auto) 0.1 0.0-0.3 10^3/uL Basophils # (Auto) 0.0 0.0-0.1 10^3/uL Sodium Level 140 135-145 MMOL/L Potassium Level 3.5 L 3.6-5.0 MMOL/L Chloride Level 103 98-107 MMOL/L Carbon Dioxide Level 23 21-32 MMOL/L Anion Gap 14 5-14 MMOL/L Blood Urea Nitrogen 12 7-18 MG/DL Creatinine 0.78 0.60-1.30 MG/DL Estimat Glomerular Filtration Rate > 60 BUN/Creatinine Ratio 15 Glucose Level 103 70-105 MG/DL Lactic Acid Level 1.43 0.50-2.00 MMOL/L Calcium Level 10.3 H 8.5-10.1 MG/DL Total Bilirubin 0.2 0.1-1.0 MG/DL Aspartate Amino Transf (AST/SGOT) 29 5-34 U/L Alanine Aminotransferase (ALT/SGPT) 28 0-55 U/L Alkaline Phosphatase 164 H 40-136 U/L Total Protein 8.5 H 6.4-8.2 GM/DL Albumin 4.7 H 3.2-4.5 GM/DL Serum Test, Qualitative NEGATIVE NEGATIVE My Orders Orders - ARYAN ARREGUIN DO Saline Lock/Iv-Start (05/28/17 19:44) Cbc With Automated Diff (05/28/17 19:44) Comprehensive Metabolic Panel (05/28/17 19:44) Hcg,Qualitative Serum (05/28/17 19:44) Lactic Acid Analyzer (05/28/17 19:44) Blood Culture (05/28/17 19:44) Saline Lock/Iv-Start (05/28/17 19:44) Lactated Ringers (Lr 1000 Ml Iv Solution (05/28/17 19:44) Acetaminophen Tablet (Tylenol Tablet) (05/28/17 19:44) Ibuprofen Tablet (Motrin Tablet) (05/28/17 19:44) Ceftriaxone Injection (Rocephin Injectio (05/28/17 19:45) Rx-Hydrocodone/Apap 5-325 Mg (Rx-Vicodin (05/28/17 21:15) Medications Given in ED Current Medications Medications Dose Ordered Sig/Jorge Route Start Time Stop Time Status Last Admin Dose Admin Acetaminophen/ Hydrocodone Bitart 1 ea Q4H PRN PO 05/28/17 21:15 05/28/17 21:28 DC 05/28/17 21:25 1 EA Ceftriaxone Sodium 2000 mg/ Sodium Chloride 50 ml @ 100 mls/hr ONCE ONCE IV 05/28/17 19:45 05/28/17 20:14 DC 05/28/17 20:36 100 MLS/HR Lactated Ringer's 1,000 ml @ 0 mls/hr Q0M ONCE IV 05/28/17 19:44 05/28/17 19:55 DC 05/28/17 20:17 999 MLS/HR Vital Signs/I&O Vital Sign - Last 12Hours 05/28/17 05/28/17 05/28/17 05/28/17 19:05 19:20 20:10 20:17 Temp 99.1 101.3 103.4 103.4 Pulse 89 Resp 18 B/P (MAP) 129/55 Pulse Ox 100 O2 Delivery Room Air 05/28/17 20:17 Temp 103.4 Blood Pressure Mean: 79 Departure Communication Progress Notes 2099--SPOKE WITH DR. VOSS, WILL SEE PT IN OFFICE IN 1-2 DAYS FOR FURTHER CARE Impression Impression: Primary Impression: Acute mastitis of left breast Disposition: HOME, SELF-CARE Condition: Stable Departure-Patient Inst. Referrals: ANEL VOSS MD (PCP/Family) Primary Care Physician Patient Instructions: Mastitis (DC) Add. Discharge Instructions: MOIST HEAT TO BREAST AT 20 MINUTE INTERVALS, AND BEFORE PUMPING BREAST FEED USUAL FROM RIGHT BREAST, AND PUMP AND DUMP MILK FROM LEFT BREAST- -PUMP OR FEED EVERY 2-4 HOURS TYLENOL AND MOTRIN NEEDED FOR PAIN OR FEVER LOTS OF CLEAR LIQUIDS FOLLOW UP WITH DR. VOSS IN 1-2 DAYS FOR FURTHER CARE All discharge instructions reviewed with patient and/or family. Voiced understanding. Scripts Hydrocodone/Acetaminophen (Hydrocodon-Acetaminoph 7.5-325) 1 Each Tablet 1-2 EACH PO Q4H for Pain, #10 TAB Prov: ARYAN ARREGUIN DO 05/28/17 Dicloxacillin Sodium (Dicloxacillin Sodium) 500 Mg Capsule 500 MG PO QID, #40 CAP Prov: ARYAN ARREGUIN DO 05/28/17 ARYAN ARREGUIN DO May 28, 2017 21:09
[2017-05-28] MEDS ORDERED: RX-HYDROCODONE/APAP 5/325 MG #4 TAB PK PO PRN (21:15)
[2017-05-28 21:28] VITALS: BP 101/58
== END 2017-05-28 21:28 | disposition home or self-care (01) ==
LOC: EDUNIT# 18:52 → ER 18:55
DX: N61.0 Mastitis without abscess (principal)
CPT/HCPCS: 36415; 80053; 83605; 84703; 85025; 87040; 96361; 96365

== ENCOUNTER 2018-04-24 03:35 | Emergency (ER) | payer MEDICAID ==
[~2018-04-24] VITALS: Ht 160 cm; Wt 63.5 kg
[~2018-04-24 03:35] MED LIST changes: +ACHD5005 PO; +FENUGREEK; +HYDR-34 PO; -HYDR-3812 PO; +biotin
--- OUTSIDE RECORDS SUMMARY | 2018-04-24 03:41 | XMS REPORT ---
Author Author GARCIATODD Paz Organization [facility] Address [address] [place] [address] Care Team Providers Care Optimization Manager Name Role Phone TODD GARCIA Unavailable PROBLEMS Unknown Problems ALLERGIES Substance Reaction Event Type Date Status N.K.D.A. Unknown Non Drug Allergy Jan, Unknown SOCIAL HISTORY No smoking Hx information available PLAN OF CARE Activity Details Follow Up 2 Weeks, prn Reason: VITAL SIGNS Height 63 in 2017-01-05 Weight 150 lbs 2017-01-05 Temperature 98.1 degrees Fahrenheit 2017-01-05 Heart Rate 76 bpm 2017-01-05 Respiratory Rate 18 2017-01-05 BMI 26.57 kg/m2 2017-01-05 Blood pressure systolic 110 mmHg 2017-01-05 Blood pressure diastolic 76 mmHg 2017-01-05 MEDICATIONS No Known Medications RESULTS Name Result Date Reference Range INFLUENZA A & B (IN HOUSE) 2017-01-05 INFLUENZA A Negative INFLUENZA B Negative Control + Lot # [id number] Exp date 05/31/18 MONO TEST (IN HOUSE) 2017-01-05 RESULTS Negative Control + Lot # [id number] Exp date 09/2017 STREP A (IN HOUSE) 2017-01-05 STREP A Negative Control + Lot # [id number] Exp date 04/09/18 MUMPS PCR (STATE LAB- APPROVAL REQUIRED) 2017-01-11 PROCEDURES Procedure Date Ordered Related Diagnosis Body Site ROUTINE VENIPUNCTURE 2017-01-05 N/A INFLUENZA ASSAY W/OPTIC Jan 05, 2017 VENIPUNCT, ROUTINE* Jan 05, 2017 HETEROPHILE ANTIBODIES Jan 05, 2017 STREP A ASSAY W/OPTIC Jan 05, 2017 Office Visit, Est Pt., Level 3 Jan 05, 2017 MUMPS ANTIBODY Jan 05, 2017 IMMUNIZATIONS No Known Immunizations
--- OUTSIDE RECORDS SUMMARY | 2018-04-24 03:42 | XMS REPORT | Continuity of Care Document ---
Author Author [facility] Address Unknown Phone Unavailable Allergies Active Description Code Type Severity Reaction Onset Reported/Identified Relationship to Patient Clinical Status Yes No Known Drug Allergies [id number] Drug Allergy Unknown N/A 06/13/2012 Medications There is no data. Problems Date Dx Coded Attending Type Code Diagnosis Diagnosed By 10/15/2010 Ot 626.4 IRREGULAR MENSTRUATION 06/15/2012 Ot 669.81 COMP LAB/ DELIV NEC-DELIV 06/15/2012 Ot V06.1 DIPHTHERIA- TETANUS-PERTUSSIS, COMBINED [ 06/15/2012 Ot V06.4 VAC-MEASLE- MUMPS-RUBELLA 06/15/2012 Ot V27.0 DELIVER- SINGLE LIVEBORN 11/29/2014 ENRIKE SIMMS APRN S 465.9 UPPER RESPIRATORY INFECTION 10/30/2015 Ot 649.63 [...] Z36 ENCOUNTER FOR SCREENING OF MOT 06/08/2016 BIPIN MD, ANEL J Ot Z3A.19 19 WEEKS GESTATION OF 07/10/2016 Ot 649.63 UTERINE SIZE DATE DISCREPANCY, ANTEPARTU 07/10/2016 ANEL VOSS MD Ot Z36 ENCOUNTER FOR SCREENING OF MOT 07/10/2016 ANEL VOSS MD Ot Z3A.19 19 WEEKS GESTATION OF 07/11/2016 ANEL VOSS MD Ot Z36 ENCOUNTER FOR SCREENING OF MOT 07/11/2016 ANEL VOSS MD Ot Z3A.19 19 WEEKS GESTATION OF 07/16/2016 ANEL VOSS MD Ot Z36 ENCOUNTER FOR SCREENING OF MOT 07/16/2016 ANEL VOSS MD Ot Z3A.19 19 WEEKS GESTATION OF 07/16/2016 [...] SCREENING OF MOT 08/02/2016 ANEL VOSS MD J Ot Z36 ENCOUNTER FOR SCREENING OF MOT [...] 41 WEEKS GESTATION OF 11/01/2016 REYMUNDO WILKINSON MD, Ot K02.9 DENTAL CARIES, UNSPECIFIED 11/01/2016 REYMUNDO WILKINSON MD, Ot K08.9 DISORDER OF [...] NORMAL , 02/06/2017 ANEL VOSS MD, Ot ENCOUNTER FOR SCREENING OF MOT 02/06/2017 ANEL VOSS MD, Ot.19 19 WEEKS GESTATION OF 02/06/2017 ANEL VOSS MD, Ot ENCOUNTER FOR SCREENING OF MOT 02/07/2017 RODRÍGUEZ DO, ARYAN K Ot N61.0 MASTITIS WITHOUT ABSCESS 02/12/2017 RODRÍGUEZ DO, ARYAN K Ot N61.0 MASTITIS WITHOUT ABSCESS 02/14/2017 RODRÍGUEZ DO, ARYAN K Ot N61.0 MASTITIS WITHOUT ABSCESS 05/28/2017 RODRÍGUEZ DO, ARYAN K Ot N61.0 MASTITIS WITHOUT ABSCESS 05/28/2017 RODRÍGUEZ DO, ARYAN K Ot N64.4 MASTODYNIA 09/30/2017 ANEL VOSS MD, Ot36 ENCOUNTER FOR SCREENING OF MOT 09/30/2017 ANEL VOSS MD, Ot3A.19 19 WEEKS GESTATION OF 09/30/2017 ANEL VOSS MD, Ot ENCOUNTER FOR SCREENING OF MOT Procedures Code Description Performed By Performed On 72.71 VACUUM EXT DEL W EPISIOT 06/13/2012 [id number] DIVISION OF FEMALE PERINEUM, EXTERNAL AP 10/24/2016 [id number] EXTRACTION OF PRODUCTS OF CONCEPTION, [place] 10/24/2016 [id number] INTRODUCE OTH THERAP SUBST IN PERIPH VEI 10/24/2016 Results Test Result Range Complete blood count (CBC) with automated white blood cell (WBC) differential - 10/24/16 06:45 Blood leukocytes automated count (number/volume) 8.8 10*3/uL 4.3-11.0 Blood erythrocytes automated count (number/volume) 4.22 10*6/uL 4.35-5.85 Venous blood hemoglobin measurement (mass/volume) 11.2 [...] Automated blood platelet mean volume measurement 9.9 [foz_us] 7.4-10.4 Automated blood neutrophils/100 leukocytes 69 % [...] ABO+Rh group OP NRG Transfusion band number [id number] [facility] Blood group antibody screen NEGATIVE NR Complete blood count (CBC) with automated white blood cell (WBC) differential - 10/25/16 06:00 Blood leukocytes automated count (number/volume) 13.6 10*3/uL 4.3-11.0 Blood erythrocytes automated count (number/volume) 3.71 10*6/uL 4.35-5.85 Venous blood hemoglobin measurement (mass/volume) 9.9 [...] Automated blood platelet mean volume measurement 9.5 [foz_us] 7.4-10.4 Automated blood neutrophils/100 leukocytes 72 % [...] 13:10 Blood leukocytes automated count (number/volume) 9.2 10*3/uL 4.3-11.0 Blood erythrocytes automated count (number/volume) 5.03 10*6/uL 4.35-5.85 Venous blood hemoglobin measurement (mass/volume) 13.7 [...] Automated blood platelet mean volume measurement 10.0 [foz_us] 7.4-10.4 Automated blood neutrophils/100 leukocytes 74 % [...] Serum or plasma sodium measurement (moles/volume) 139 mmol/L 135-145 Serum or plasma potassium measurement (moles/volume) 3.6 mmol/L 3.6-5.0 Serum or plasma chloride measurement (moles/volume) 104 mmol/L 98-107 Carbon dioxide 25 mmol/L 21-32 Serum or plasma anion gap determination (moles/volume) 10 mmol/L 5-14 Serum or plasma urea nitrogen measurement (mass/volume) 9 mg/dL 7-18 Serum or plasma creatinine measurement (mass/volume) 0.75 mg/dL 0.60-1.30 Serum or plasma urea nitrogen/creatinine mass [...] 02/06/17 13:37 Bacterial blood culture NG NRG Complete blood count (CBC) with automated white blood cell (WBC) differential - 05/28/17 20:10 Blood leukocytes automated count (number/volume) 7.4 10*3/uL 4.3-11.0 Blood erythrocytes automated count (number/volume) 5.09 10*6/uL 4.35-5.85 Venous blood hemoglobin measurement (mass/volume) 13.6 g/dL 11.5-16.0 Blood hematocrit (volume fraction) 41 % 35-52 Automated erythrocyte mean corpuscular volume 81 [foz_us] 80-99 Automated erythrocyte mean corpuscular hemoglobin (mass per erythrocyte) 27 pg 25-34 Automated erythrocyte mean corpuscular hemoglobin concentration measurement ( mass/volume) 33 g/dL 32-36 Automated erythrocyte distribution width ratio 11.9 % 10.0-14.5 Automated blood platelet count (count/volume) 229 10*3/uL 130-400 Automated blood platelet mean volume measurement 9.9 [foz_us] 7.4-10.4 Automated blood neutrophils/100 leukocytes 79 % 42-75 Automated blood lymphocytes/100 leukocytes 17 % 12-44 Blood monocytes/100 leukocytes 3 % 0-12 Automated blood eosinophils/100 leukocytes 1 % 0-10 Automated blood basophils/100 leukocytes 0 % 0-10 Blood neutrophils automated count (number/volume) 5.8 10*3 1.8-7.8 Blood lymphocytes automated count (number/volume) 1.3 10*3 1.0-4.0 Blood monocytes automated count (number/volume) 0.2 10*3 0.0-1.0 Automated eosinophil count 0.1 10*3/uL 0.0-0.3 Automated blood basophil count (count/volume) 0.0 10*3/uL 0.0-0.1 Blood lactic acid measurement (moles/volume) - 05/28/17 20:10 Blood lactic acid measurement (moles/volume) 1.43 mmol/L 0.50-2.00 Serum or plasma choriogonadotropin ( test) detection - 05/28/17 20:10 Serum or plasma choriogonadotropin ( test) detection NEGATIVE NEGATIVE Comprehensive metabolic panel - 05/28/17 20:10 Serum or plasma sodium measurement (moles/volume) 140 mmol/L 135-145 Serum or plasma potassium measurement (moles/volume) 3.5 mmol/L 3.6-5.0 Serum or plasma chloride measurement (moles/volume) 103 mmol/L 98-107 Carbon dioxide 23 mmol/L 21-32 Serum or plasma anion gap determination (moles/volume) 14 mmol/L 5-14 Serum or plasma urea nitrogen measurement (mass/volume) 12 mg/dL 7-18 Serum or plasma creatinine measurement (mass/volume) 0.78 mg/dL 0.60-1.30 Serum or plasma urea nitrogen/creatinine mass ratio 15 NRG Serum or plasma creatinine measurement with calculation of estimated glomerular filtration rate > NRG Serum or plasma glucose measurement (mass/volume) 103 mg/dL 70-105 Serum or plasma calcium measurement (mass/volume) 10.3 mg/dL 8.5-10.1 Serum or plasma total bilirubin measurement (mass/volume) 0.2 mg/dL 0.1-1.0 Serum or plasma alkaline phosphatase measurement (enzymatic activity/volume) 164 U/L 40-136 Serum or plasma aspartate aminotransferase measurement (enzymatic activity/ volume) 29 U/L 5-34 Serum or plasma alanine aminotransferase measurement (enzymatic activity/volume ) 28 U/L 0-55 Serum or plasma protein measurement (mass/volume) 8.5 g/dL 6.4-8.2 Serum or plasma albumin measurement (mass/volume) 4.7 g/dL 3.2-4.5 Bacterial blood culture - 05/28/17 20:10 Bacterial blood culture NG NRG Bacterial blood culture - 05/28/17 20:15 QUANTITY OF GROWTH . NRG Bacterial blood culture SEE COMMEN NRG Encounters ACCT No. Visit Date/Time Discharge Status Pt. Type Provider Facility Loc./Unit Complaint [id number] 11/29/2014 17:49:00 11/29/2014 23:59:59 [facility] Outpatient ENRIKE SIMMS APRN [id number] 08/22/2017 12:10:00 08/22/2017 23:59:59 [facility] Outpatient TODD GARCIA [facility] [id number] 05/28/2017 18:55:00 05/28/2017 21:28:00 DIS Emergency ARYAN ARREGUIN DO [facility] ER LT BREAST PAIN [id number] 02/06/2017 12:46:00 02/06/2017 14:18:00 DIS Emergency ARYAN ARREGUIN DO [facility] ER POSS BREAST INFECTION [id number] 10/24/2016 06:20:00 10/26/2016 14:00:00 DIS Inpatient ANEL VOSS MD [facility] LDRP INDUCTION [id number] 10/16/2016 02:59:00 10/16/2016 03:27:00 DIS Emergency REYMUNDO WILKINSON MD [facility] ER DENTAL PAIN [id number] 07/31/2016 09:59:00 07/31/2016 23:59:59 [facility] Outpatient ANEL VOSS MD [facility] RAD FOLLOW UP OB,CHECK , BLADDER,CORD,MARGINAL PRE [id number] 05/28/2016 14:14:00 05/28/2016 23:59:59 [facility] Outpatient ANEL VOSS MD [facility] RAD SURVEY [id number] 03/19/2016 14:25:00 03/19/2016 23:59:59 [facility] Outpatient ANEL VOSS MD [facility] RAD DATING [id number] 10/30/2015 06:49:00 10/30/2015 08:35:00 DIS Emergency ASHLEY VOGEL MD [facility] ER ABD PAIN [id number] 06/13/2012 19:07:00 Document Registration [id number] 02/22/2012 10:46:00 Document Registration [id number] 10/14/2010 21:59:00 Document Registration
[2018-04-24] MEDS ORDERED: CYCL10TA9 PO (04:00)
[2018-04-24] MEDS ORDERED: NAPR-915 PO (04:00)
--- NOTE | 2018-04-24 04:00 | ED Neck-Back Pain/Injury ---
General Chief Complaint: Upper Extremity Stated Complaint: RT SHOULDER PAIN Source of Information: Patient History of Present Illness Date Seen by Provider: April 24, 2018 Time Seen by Provider: 03:48 Initial Comments PT ARRIVES VIA POV STATES YESTERDAY MORNING SHE WOKE UP AND FELT FINE. 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 Other Comments PCP: DR. VOSS Allergies and Home Medications Allergies Coded Allergies: No Known Drug Allergies (Unverified , 06/13/12) Home Medications Cyclobenzaprine HCl 10 Mg Tablet, 10 MG PO Q8H Prescribed by: ARYAN ARREGUIN on 04/24/18 0400 Dicloxacillin Sodium 500 Mg Capsule, 500 MG PO QID Prescribed by: ARYAN ARREGUIN on 05/28/172108 Hydrocodone Bit/Acetaminophen 1 Each Tablet, 1-2 EACH PO Q4H Prescribed by: ARYAN ARREGUIN on 05/28/172108 Naproxen 500 Mg Tablet, 500 MG PO BID Prescribed by: ARYAN ARREGUIN on 04/24/18 0400 Patient Home Medication List Home Medication List Reviewed: Yes Constitutional: see HPI EENTM: no symptoms reported Respiratory: no symptoms reported Cardiovascular: no symptoms reported Gastrointestinal: no symptoms reported Genitourinary: no symptoms reported : No Expected Date of Delivery: April 15, 2018 Control/STD Prophylaxis: None Musculoskeletal: see HPI Skin: no symptoms reported Psychiatric/Neurological: No Symptoms Reported Past Dudbwsc-Zvafcv-Isacnr Hx Patient Social History Alcohol Use: Denies Use Recreational Drug Use: No Smoking Status: Never a Smoker 2nd Hand Smoke Exposure: No Recent Foreign Travel: No Contact w/Someone Who Travel: No Recent Hopitalizations: No Physical Abuse: No Sexual Abuse: No Immunizations Up To Date Tetanus Booster (TDap): Unknown PED Vaccines UTD: No Date of Influenza Vaccine: Oct 02, 2015 Seasonal Allergies Seasonal Allergies: No Past Medical History Surgeries: No Respiratory: No Cardiac: No Neurological: No Reproductive Disorders: No Genitourinary: No Gastrointestinal: No Musculoskeletal: No Endocrine: No HEENT: No Cancer: No Psychosocial: No Nursing Suicide Risk Score: 0 Integumentary: Yes (MASTITIS) Blood Disorders: Yes (ANEMIA) Family Medical History Patient reports no known family medical history. Physical Exam Vital Signs Vital Signs - First Documented 04/24/18 03:52 Temp 98.6 Pulse 87 Resp 14 B/P (MAP) 110/67 (81) Pulse Ox 98 O2 Delivery Room Air Capillary Refill : General Appearance: No Apparent Distress, WD/WN Neck: Full Range of Motion, Normal Inspection, Non Tender, Supple Cardiovascular: Regular Rate, Rhythm, No Edema, No JVD, No Murmur, Normal Peripheral Pulses Respiratory: Chest Non Tender, Normal Breath Sounds, No Accessory Muscle Use, No Respiratory Distress Peripheral Pulses: 2+ Radial Pulses (R), 2+ Radial Pulses (L) Gastrointestinal: Soft Back: Other (TENDERNESS TO RIGHT MEDIAL AND MID TRAPEZIUS AREA--DIRECTLY OVER 2ND AND 3RD RIB AREAS. NO EXTERNAL EVIDENCE OF TRAUMA) Extremity: Normal Capillary Refill, Normal Inspection, Non Tender, No Calf Tenderness, No Pedal Edema, Other (DOESN'T WANT TO MOVE RIGHT ARM, BECAUSE OF PAIN IN TRAPEZIUS AREA. 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 Referrals: ANEL VOSS MD (PCP/Family) Primary Care Physician Patient Instructions: Muscle Strain (DC) Add. Discharge Instructions: MOIST HEAT TO AREA AT 20 MINUTE INTERVALS ACTIVITIES TOLERATED FOLLOW UP WITH DR. VOSS IN 4-5 DAYS IF NO BETTER All discharge instructions reviewed with patient and/or family. Voiced understanding. Scripts Cyclobenzaprine HCl (Cyclobenzaprine HCl) 10 Mg Tablet 10 MG PO Q8H, #15 TAB Prov: ARYAN ARREGUIN DO 04/24/18 Naproxen (Naproxen) 500 Mg Tablet 500 MG PO BID, #20 TAB Prov: ARYAN ARREGUIN DO 04/24/18 Work/School Note: Work Release Form Date Seen in the Emergency Department: April 24, 2018 Images Torso/Trunk 1 - Tenderness ARYAN ARREGUIN DO April 24, 2018 04:00
[2018-04-24] MEDS: KETOROLAC 60 MG/2 ML VIAL IM ONE (04:02)
[2018-04-24] MEDS: ORPHENADRINE 60 MG/2 ML (NORFLEX) AMP IM ONE (04:03)
[2018-04-24 04:08] VITALS: BP 110/68
== END 2018-04-24 04:21 | disposition home or self-care (01) ==
LOC: EDUNIT# 03:35 → ER 03:38
DX: S46.811A Strain of other muscles, fascia and tendons at shoulder and upper arm level, right arm, initial encounter (principal); X50.0XXA Overexertion from strenuous movement or load, initial encounter
CPT/HCPCS: 96372; 99284

== ENCOUNTER 2018-11-29 12:33 | Emergency (ER) | payer MEDICAID ==
[~2018-11-29] VITALS: Ht 160 cm; Wt 72.6 kg
[~2018-11-29 12:33] MED LIST changes: +CYCL10TA9 PO; +NAPR-915 PO
[2018-11-29] MEDS ORDERED: D-ME118S33 PO (12:55)
--- NOTE | 2018-11-29 12:55 | ED EENT ---
History of Present Illness General Chief Complaint: Oral/Throat Problems Stated Complaint: THROAT PAIN/BILAT EAR PAIN Source: patient Exam Limitations: no limitations History of Present Illness Date Seen by Provider: Nov 29, 2018 Time Seen by Provider: 12:52 Initial Comments To ER with sore throat and bilateral ear pain and rhinorrhea since Yesterday. She's had chills but has not measured her fevers. Timing/Duration: abrupt Severity: moderate Location: ear (R), ear (L), throat Associated Symptoms: No cough; fever, sore throat Allergies and Home Medications Allergies Coded Allergies: No Known Drug Allergies (Unverified , 06/13/12) Home Medications Cyclobenzaprine HCl 10 Mg Tablet, 10 MG PO Q8H Prescribed by: ARYAN ARREGUIN on 04/24/18 0400 Dicloxacillin Sodium 500 Mg Capsule, 500 MG PO QID Prescribed by: ARYAN ARREGUIN on 05/28/172108 Hydrocodone Bit/Acetaminophen 1 Each Tablet, 1-2 EACH PO Q4H Prescribed by: ARYAN ARREGUIN on 05/28/172108 Naproxen 500 Mg Tablet, 500 MG PO BID Prescribed by: ARYAN ARREGUIN on 04/24/18 040 Patient Home Medication List Home Medication List Reviewed: Yes Review of Systems Review of Systems Constitutional: see HPI, chills; No fever Eyes: No Symptoms Reported Ears: See HPI, Pain Nose: no symptoms reported Mouth: no symptoms reported Throat: no symptoms reported Respiratory: no symptoms reported Cardiovascular: no symptoms reported Musculoskeletal: no symptoms reported Past Ioivdxr-Drjiyz-Nocoll Hx Patient Social History 2nd Hand Smoke Exposure: No Recent Foreign Travel: No Contact w/Someone Who Travel: No Recent Hopitalizations: No Immunizations Up To Date Tetanus Booster (TDap): Unknown PED Vaccines UTD: No Date of Influenza Vaccine: Oct 02, 2015 Seasonal Allergies Seasonal Allergies: No Past Medical History Surgeries: No Respiratory: No Cardiac: No Neurological: No Reproductive Disorders: No Genitourinary: No Gastrointestinal: No Musculoskeletal: No Endocrine: No HEENT: No Cancer: No Psychosocial: No Integumentary: Yes (MASTITIS) Blood Disorders: Yes (ANEMIA) Family Medical History Patient reports no known family medical history. Physical Exam Height, Weight, BMI Height: 5'3.00" Weight: 140lbs. 6.0oz. [id number]; 32.7 BMI Method:Estimated General Appearance: WD/WN, no apparent distress Eyes: bilateral eye normal inspection, bilateral eye PERRL, bilateral eye EOMI Ears: bilateral ear auricle normal, bilateral ear canal normal, bilateral ear TM normal Nose: normal inspection Mouth/Throat: other (cobblestoning and erythema of the oropharynx but no exudate) Neck: non-tender, full range of motion; No lymphadenopathy (R), No lymphadenopathy (L) Respiratory: normal breath sounds, no respiratory distress, no accessory muscle use Neurologic/Psychiatric: alert, normal mood/affect, oriented x 3 Skin: normal color, warm/dry Progress/Results/Core Measures Results/Orders My Orders Orders - WOLF TY APRN Influenza A And B Antigens (11/29/18 12:51) Dexamethasone Injection (Decadron Inject (11/29/18 13:00) Departure Impression Primary Impression: Viral syndrome Disposition: 01 HOME, SELF-CARE Condition: Stable Departure-Patient Inst. Decision time for Depature: 12:54 Referrals: ANEL VOSS MD (PCP/Family) Primary Care Physician Patient Instructions: VIRAL SYNDROME Add. Discharge Instructions: 1. Tylenol and Motrin for pain 2. Take the prescription decongestant cough medication as needed. All discharge instructions reviewed with patient and/or family. Voiced understanding. Scripts D-Methorphan Hb/P-Epd HCl/Bpm (Bromfed Dm Cough Syrup) 118 Ml Syrup 5 ML PO Q4H PRN for CONGESTION, #120 ML Prov: WOLF TY APRN 11/29/18 WOLF TY APRN Nov 29, 2018 12:55
[2018-11-29] MEDS ORDERED: DEXAMETHASONE 10 MG/ML (DECADRON) 1 ML VIAL IM ONE (13:00)
[2018-11-29] MEDS ORDERED: AZIT250T12 PO (13:33)
[2018-11-29 13:39] VITALS: BP 130/91
== END 2018-11-29 13:39 | disposition home or self-care (01) ==
LOC: EDUNIT# 12:33 → ER 12:34
DX: B34.9 Viral infection, unspecified (principal); D64.9 Anemia, unspecified
CPT/HCPCS: 87804; 96372

== ENCOUNTER 2020-06-22 10:27 | Emergency (ER) | payer SELFPAY ==
[~2020-06-22] VITALS: Ht 160 cm; Wt 90.0 kg
[~2020-06-22 10:27] MED LIST changes: +AZIT250T12 PO; +D-ME118S33 PO
[2020-06-22 11:12] LABS: BASOPHILS % (AUTO) 1 % (0-10); EOSINOPHILS # (AUTO) 0.2 10^3/uL (0.0-0.3); EOSINOPHILS % (AUTO) 2 % (0-10); HEMATOCRIT 40 % (35-52); HEMOGLOBIN 13.4 G/DL (11.5-16.0); LYMPHOCYTES # (AUTO) 2.7 X 10^3 (1.0-4.0); LYMPHOCYTES % (AUTO) 40 % (12-44); MEAN CORPUSCULAR HEMOGLOBIN 28 PG (25-34); MEAN CORPUSCULAR HGB CONC 34 G/DL (32-36); MEAN CORPUSCULAR VOLUME 83 FL (80-99); MONOCYTES # (AUTO) 0.5 X 10^3 (0.0-1.0); MONOCYTES % (AUTO) 7 % (0-12); NEUTROPHILS # (AUTO) 3.4 X 10^3 (1.8-7.8); NEUTROPHILS % (AUTO) 50 % (42-75); PLATELET COUNT 222 10^3/uL (130-400); RED CELL DISTRIBUTION WIDTH 12.3 % (10.0-14.5); WHITE BLOOD COUNT 6.7 10^3/uL (4.3-11.0)
--- OUTSIDE RECORDS SUMMARY | 2020-06-22 11:13 | XMS REPORT ---
Author Author Brina SIMMS Organization 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 [address] [place] [id number] 11 Jun, 2017 General medical examination Z00.00 and Screening for tuberculosis Z11.1 [facility] [address] [id number] 04 Jan, 2017 Right facial swelling R22.0 and Parotitis, acute K11.21 [facility] [address] [id number] 07 Mar, 2016 [facility] [address] [id number] Jan, confirmed by posit minerva urine test Z32.01 [facility] [address] [place] [id number] [place] [id number] 05 Oct, 2015 Otitis media H66.90 and Seas onal allergic rhinitis J30.2 [facility] [address] [id number] 26 Sep, 2015 Encounter for immunization Z 23 [facility] [address] [place] [id number] [place] [phone] 24 Aug, 2015 [place] [address] [place] [address] Aug, Encounter for PPD test V74.1 and Pre-employment examination V70.5 [facility] [address] [id number] [address] [place] [id number] Jul, Dental examination V72.2 [facility] [address] [facility] [id number] [address] [place] [phone] May, Eustachian tube dysfunction 381.[address] [facility] [address] [facility] [id number] [address] [place] [id number] April, [facility] [address] [facility] [id number] [place] [id number] Nov, [facility] [address] [facility] [id number] [address] [place] [id number] Nov, IMMUNIZATIONS No Known Immunizations SOCIAL HISTORY Never Assessed REASON FOR VISIT PLAN OF CARE VITAL SIGNS Height 63 in 2014-11-29 Weight 155.4 lbs 2014-11-29 Temperature 97.8 degrees Fahrenheit 2014-11-29 Heart Rate 72 bpm 2014-11-29 Respiratory Rate 16 2014-11-29 Blood pressure systolic 117 mmHg 2014-11-29 Blood pressure diastolic 70 mmHg 2014-11-29 MEDICATIONS No Known Medications RESULTS No Results PROCEDURES No Known procedures INSTRUCTIONS MEDICATIONS ADMINISTERED No Known Medications MEDICAL (GENERAL) HISTORY Type Description Date Hospitalization History Childbirth Only
--- OUTSIDE RECORDS SUMMARY | 2020-06-22 11:13 | XMS REPORT ---
Author Author [facility] [employer] [facility] Address [address] [address] Care Team Providers Care Smutter Name Role Phone ANEL VOSS Unavailable JARAD DAVIS Unavailable Unavailable CEDRIC HESS Unavailable Unavailable ANEL VOSS Unavailable Unavailable WHITE, PACHECO Unavailable Unavailable MADL, АННА Unavailable Unavailable ANEL VOSS Unavailable TODD GARCIA Unavailable ARYAN ARREGUIN DO Unavailable Unavailable ANEL VOSS MD Unavailable Unavailable ASHLEY VOGEL MD Unavailable Unavailable ANEL VOSS MD Unavailable Unavailable REYMUNDO WILKINSON MD Unavailable Unavailable ANEL VOSS Unavailable PCP, NONE Unavailable Unavailable REYMUNDO WILKINSON MD Unavailable Unavailable ANEL VOSS MD Unavailable Unavailable ARYAN ARREGUIN DO Unavailable Unavailable WOLF TY APRN Unavailable Unavailable Unavailable Unavailable Unavailable Unavailable Unavailable Unavailable Allergies The data below is from unstructured sources Substance Reaction Event Type N.K.D.A. Info Not Available Non Drug Allergy Substance Reaction Event Type Date Status N.K.D.A. Unknown Non Callum g Allergy Jan, Unknown No known allergies. Encounters Encounter Date Encounter Type Encounter Diagnosis Care Provider Facility Start: Emergency department REYMUNDO WILKINSON MD [facility] 06-22-2020 patient visit [facility] Start: Patient encounter NONE PCP [facility] 05-17-2020 procedure Center [facility] Start: Emergency department WOLF TY Not Available ([id number]) 11-29-2018 patient visit End: 11-29-2018 Start: Patient encounter WOLF TY Not Availab le ([id number]) 11-29-2018 procedure Start: Emergency department WOLF TY ARCH[facility]ECT [facility] 11-29-2018 patient visit [facility] End: 11-29-2018 Start: Patient encounter NA NA Not Availab le ([id number]) 04-24-2018 procedure Start: Patient encounter 06-11-2017 procedure Start: Emergency department ARYAN ARREGUIN DO [facility] 05-28-2017 patient visit [facility] End: 05-28-2017 Start: Patient encounter ARYAN ARREGUIN DO Not Availab le ([id number]) 02-06-2017 procedure Start: Emergency department ARYAN ARREGUIN DO Not Avai lable ([id number]) 02-06-2017 patient visit End: 02-06-2017 Start: Evaluation and ANEL VOSS MD Not Available ([id number]) 10-24-2016 management of inpatient End: 10-26-2016 Start: Patient encounter REYMUNDO WILKINSON MD Not Av ailable ([id number]) 10-16-2016 procedure Start: Patient encounter ANEL VOSS MD Not Availa ble ([id number]) 07-31-2016 procedure Start: Patient encounter ANEL VOSS MD Not Availa ble ([id number]) 05-28-2016 procedure Start: Patient encounter ANEL VOSS MD [facility] 05-28-2016 procedure [facility] Start: Patient encounter ANEL VOSS MD Not Availa ble ([id number]) 03-19-2016 procedure Start: Evaluation and ANEL VOSS MD Not Available ([id number]) 06-13-2012 management of inpatient End: 06-15-2012 Start: Patient encounter ANEL VOSS MD Not Availa ble ([id number]) 02-22-2012 procedure Medical Equipment No Information Goals No Information Immunizations The data below is from unstructured sourcesNo immunization records. No Known Immunizations No Known Immunizations Interventions No Information Medications Medication Drug Dates Sig Sig (Original) Class(es) (Normalized) brompheniramine maleate alpha-Adre Start: take 1 mL by D -Methorphan Hb/P- Epd Hcl/Bpm (Bromfed 0.4 mg/ml / nergic 11-29-2018 mouth every Dm Cough Syrup ) 118 Ml Syrup 5 Ml ORAL dextromethorphan Agonist, four hours as Every 4HRS as needed for Congestion 120 hydrobromide 2 mg/ml / Uncompetit needed for [facility] ter 11/29/18 pseudoePHEDrine minerva congestion hydrochloride 6 mg/ml N-methyl-D oral solution -aspartate (1 source) Receptor Antagonist , Sigma-1 Agonist Vits End: Vits W-Ca, Fe,Fa( Daily W-Ca,Fe,Fa(<1MG) 10-30-2015 Discontinued () 1 Each Tablet, 1 Each Oral (1 source) Payers No Information Plan of Treatment The data below is from unstructured sources Discharge Date 10/16/16 3:27am Disposition 01 HOME, SELF-CARE Condition at Discharge Stable Instructions/Education Provided [place] al Pain (DC) Prescriptions See Medication Section Referrals ANEL VOSS MD [facility] Physician Additional Instructions/Education Al l discharge instructions reviewed with patient and/or family. Voiced understanding. Follow-up with a dentist LAY. Keep appointment with your doctor this morning at 9 a.m. as scheduled. Return for worse pain, fever, swelling, breathing or swallowing problems or other concerns as needed. Discharge Date 10/30/15 8:35am Disposition 01 HOME, SELF-CARE Condition at Discharge Stable/Unchan ged Instructions/Education Provided Urin franklin Tract Infection in Women (ED) Prescriptions See Medication Section Referrals ANEL VOSS MD - [facility] Physician Additional Instructions/Education Al l discharge instructions reviewed with patient and/or family. Voiced understanding. Start antibiotic today. If pain increases significantly return to the emergency room Discharge Date 05/28/17 9:28pm Disposition 01 HOME, SELF-CARE Condition at Discharge Stable Instructions/Education Provided Mast itis (DC) Prescriptions See Medication Section Referrals ANEL VOSS MD Order Date: Primary Care Physician Address: [address] [place] [address], [address] [place] [phone] Additional Instructions/Education MO IST HEAT TO BREAST AT 20 MINUTE INTERVALS, AND BEFORE PUMPING BREAST FEED USUAL FROM RIGHT BREAST, AND PUMP AND DUMP MILK FROM LEFT BREAST--PUMP OR FEED EVERY 2-4 HOURS TYLENOL AND MOTRIN NEEDED FOR PAIN OR FEVER LOTS OF CLEAR LIQUIDS FOLLOW UP WITH DR. VOSS IN 1-2 DAYS FOR FURTHER CARE All discharge instructions reviewed with patient and/or family. Voiced understanding. Activity Details Follow Up 2 Weeks, prn Reason: Discharge Date 04/24/18 4:21am Disposition 01 HOME, SELF-CARE Condition at Discharge Stable Instructions/Education Provided Luz Marina Suarez (JUNIOR) Forms Provided Work Release Form Prescriptions See Medication Section Referrals ANEL VOSS MD Order Date: Primary Care Physician Address: [address] [place] [address] [address] [place] [phone] Additional Instructions/Education MO IST HEAT TO AREA AT 20 MINUTE INTERVALS ACTIVITIES TOLERATED FOLLOW UP WITH DR. VOSS IN 4-5 DAYS IF NO BETTER All discharge instructions reviewed with patient and/or family. Voiced understanding. Discharge Date 11/29/18 1:39pm Disposition 01 HOME, SELF-CARE Condition at Discharge Stable Instructions/Education Provided MIGUEL L SYNDROME Prescriptions See Medication Section Referrals ANEL VOSS MD Order Date: Primary Care Physician Address: [address] [place] [address] 2 [place] [phone] Additional Instructions/Education 1. Tylenol and Motrin for pain 2. Take the prescription decongestant co ugh medication as needed. All discharge instructions reviewed with patient and/or family. Voiced understanding. Discharge Date 11/29/18 1:39pm Disposition 01 HOME, SELF-CARE Condition at Discharge Stable Instructions/Education Provided MIGUEL L SYNDROME Prescriptions See Medication Section Referrals ANEL VOSS MD Order Date: Primary Care Physician Address: [address] [place] [address], [facility] [address] [place] [phone] Additional Instructions/Education 1. Tylenol and Motrin for pain 2. Take the prescription decongestant co ugh medication as needed. All discharge instructions reviewed with patient and/or family. Voiced understanding. Problems Active Problems Problem Problem Date Last Documented Episodic/Chr Provider Classificati Recorded Date onic on Deficiency Anemia, unspecified 06-22-2020 Episodic PETER TY and other ARCHITECT MARINE anemia (3 sources) E Codes: Overexertion from strenuous Episodic NA NA Natural/envi movement or load, initial e ncounter ronment (3 sources) Other Pain in right shoulder Episodic NA NA non-traumati c joint disorders (3 sources) Other Encounter for supervision of normal Episodic ANEL VOSS , unspecified, unspecified MD and delivery trimester ; Translations: [ Single including live ] normal (15 sources) Other Encounter for screening 06-22-2020 Episo dic ANEL VOSS screening of mother for suspected conditions (not mental disorders or infectious disease) (13 sources) Other upper Pain in throat 06-22-2020 Episodic WOLF TY respiratory ARCHITECT MARINE disease (3 sources) Residual 19 weeks gestation of 06-22-2020 Episodi c ANEL VOSS codes; unclassified (7 sources) Sprains and Strain of other muscles, fascia and Episodic NA NA strains tendons at shoulder and upp er arm (3 sources) level, right arm, initial e ncounter Viral Viral syndrome ; Translations: 06-22-2020 Episodic PETER TY infection [Viral infection, unspecified] ARCHITECT MARINE (4 sources) Past or Other Problems Problem Problem Date Last Documented Episodic/Chr Provider Classificati Recorded Date onic on Other Other complications of labor and Episodic ANEL VOSS complication delivery, delivered, with or MD s of ; without mention of antepart um puerperium condition affecting management of mother (3 sources) Other Uterine size date discrepancy, Episodic ANEL VOSS complication antepartum condition or MD s of complication (2 sources) Prolonged Post-term Episodic ANEL VILLAGOMEZ MD (6 sources) Residual 41 weeks gestation of Episodic ANEL VOSS codes; unclassified (6 sources) Urinary Urinary tract infection, site not Episodic ASHLEY tract specified JASPREET GAINES infections (8 sources) Procedures Date Procedure Procedure Detail Performing Cl inician DIVISION OF FEMALE ANEL VOSS MD PERINEUM, EXTERNAL AP EXTRACTION OF ANEL VOSS MD PRODUCTS OF CONCEPTION, VA INTRODUCE OTH ANEL VOSS MD THERAP SUBST IN PERIPH VEI Vacuum extraction ANEL VOSS MD with episiotomy Results Test Name Value Interpreta Reference Facilit Date tion Range y Time not yet categorized on null INDURATION (mm) 0 0 - 15 mm Lot # [id number] Read by Negative Site 06/11/2017~10:50am~RFA Time Read 08/2018~SHELBY Garcia~06/13~11:30am Social History No Information Vital Signs The data below is from unstructured sources Vital Response Date/Time Temperature (Fahrenheit) 97.3 degree s F (97.6 - 99.5) 10/16/2016 3:01am Temperature (Calculated Celsius) 36. 83499 degrees C (36.4 - 37.5) 10/16/2016 3:01am [...] Pain 10/16/2016 3:21am Height (Feet) 5 feet 3:01am Height (Inches) 3 inches 10/16/2016 3:01am Height (Calculated Centimeters) 160. 934123 cm 10/16/2016 3:01am Weight (Pounds) 180 pounds 10/16/2016 3:01am Weight (Calculated Grams) 73436.856 gm 10/16/2016 3:01am Weight (Calculated Kilograms) 81.646 627 kilograms 10/16/2016 3:01am Calculated BMI 26.57 3:01am Capillary Refill Capillary Refill Less Than 3 Seconds 10/16/2016 3:01am Vital Response Date/Time Temperature (Fahrenheit) 98 degrees F (97.6 - 99.5) 10/30/2015 6:47am Temperature (Calculated Celsius) 36. 6696 degrees C (36.4 - 37.5) 10/30/2015 6:47am Pulse Rate (adult) 71 bpm (60 - 90) 10/30/2015 6:47am Respiratory Rate 18 bpm (12 - 24) 10/30/2015 6:47am O2 Sat by Pulse Oximetry 100 % (88 - 100) 10/30/2015 6:47am Blood Pressure 120/75 mm Hg 10/30/2015 6:47am Blood Pressure Mean 90 mm Hg 10/30/2015 6:47am Pain Pain Intensity 6 2014 6:47am Height (Feet) 5 feet 6:47am Height (Inches) 3 inches 10/30/2015 6:47am Height (Calculated Centimeters) 160. 838441 cm 10/30/2015 6:47am Weight (Pounds) 150 pounds 10/30/2015 6:47am Weight (Calculated Kilograms) 68.038 856 kilograms 10/30/2015 6:47am Calculated BMI 26.57 6:47am Vital Response Date/Time Temperature (Fahrenheit) 103.4 degre es F (97.6 - 99.5) 05/28/2017 8:17pm Temperature (Calculated Celsius) 39. 10551 degrees C (36.4 - 37.5) 05/28/2017 8:17pm Temperature Source Temporal 05/28/2017 8:17pm Pulse Rate (adult) 89 bpm (60 - 90) 05/28/2017 7:05pm Respiratory Rate 18 bpm (12 - 24) 05/28/2017 7:05pm O2 Sat by Pulse Oximetry 100 % (88 - 100) 05/28/2017 7:05pm Blood Pressure 129/55 mm Hg 05/28/2017 7:05pm Blood Pressure Mean 79 mm Hg 05/28/2017 7:05pm Pain Numeric Pain Scale 10-Worst Possible Pain 05/28/2017 8:17pm Height (Feet) 5 feet 7:05pm Height (Inches) 3.00 inches 05/28/2017 7:05pm Height (Calculated Centimeters) 160. 576688 cm 05/28/2017 7:05pm Weight (Pounds) 145 pounds 05/28/2017 7:05pm Weight (Calculated Kilograms) 65.770 894 kilograms 05/28/2017 7:05pm Capillary Refill Capillary Refill Less Than 3 Seconds 05/28/2017 7:05pm Height 5 ft 3 in 017 7:05pm Weight 145 lb 05/28/2017 7:05pm Body Mass Index 25.7 kg/m^2 05/28/2017 7:05pm Vital Response Date/Time Temperature (Fahrenheit) 98.6 degree s F (97.6 - 99.5) 04/24/2018 3:52am Temperature (Calculated Celsius) 37. 91111 degrees C (36.4 - 37.5) 04/24/2018 3:52am Temperature Source Temporal 04/24/2018 3:52am Pulse Rate (adult) 87 bpm (60 - 90) 04/24/2018 4:08am Respiratory Rate 14 bpm (12 - 24) 04/24/2018 4:08am O2 Sat by Pulse Oximetry 98 % (88 - 100) 04/24/2018 4:08am Blood Pressure 110/68 mm Hg 04/24/2018 4:08am Blood Pressure Mean 81 mm Hg (65 - 110) 04/24/2018 3:52am Pain Numeric Pain Scale 9 4:08am Height (Feet) 5 feet 3:52am Height (Inches) 3.00 inches 04/24/2018 3:52am Height (Calculated Centimeters) 160. 200690 cm 04/24/2018 3:52am Height Method Stated 3:52am Weight (Pounds) 140 pounds 04/24/2018 3:52am Weight (Calculated Grams) 19188.93 gm 04/24/2018 3:52am Weight (Calculated Kilograms) 63.502 932 kilograms 04/24/2018 3:52am Weight Method Estimated 04/24/2018 3:52am Capillary Refill Capillary Refill Less Than 3 Seconds 04/24/2018 3:52am Height 5 ft 3 in 018 3:52am Weight 140 lb 04/24/2018 3:52am Body Mass Index 24.8 kg/m^2 04/24/2018 3:52am Vital Response Date/Time Temperature (Fahrenheit) 98.5 degree s F (97.6 - 99.5) 11/29/2018 1:39pm Temperature (Calculated Celsius) 36. 72732 degrees C (36.4 - 37.5) 11/29/2018 1:39pm Temperature Source Tympanic 11/29/2018 1:39pm Pulse Rate (adult) 72 bpm (60 - 90) 11/29/2018 1:39pm Respiratory Rate 12 bpm (12 - 24) 11/29/2018 1:39pm O2 Sat by Pulse Oximetry 98 % (88 - 100) 11/29/2018 1:39pm Blood Pressure 130/91 mm Hg 11/29/2018 1:39pm Blood Pressure Mean 104 mm Hg (65 - 110) 11/29/2018 1:39pm Pain Numeric Pain Scale 0-No Pain 11/29/2018 1:39pm Vital Response Date/Time Temperature (Fahrenheit) 98.5 degree s F (97.6 - 99.5) 11/29/2018 1:39pm Temperature (Calculated Celsius) 36. 14388 degrees C (36.4 - 37.5) 11/29/2018 1:39pm Temperature Source Tympanic 11/29/2018 1:39pm Pulse Rate (adult) 72 bpm (60 - 90) 11/29/2018 1:39pm Respiratory Rate 12 bpm (12 - 24) 11/29/2018 1:39pm O2 Sat by Pulse Oximetry 98 % (88 - 100) 11/29/2018 1:39pm Blood Pressure 130/91 mm Hg 11/29/2018 1:39pm Blood Pressure Mean 104 mm Hg (65 - 110) 11/29/2018 1:39pm Pain Numeric Pain Scale 0-No Pain 11/29/2018 1:39pm Functional Status The data below is from unstructured sourcesNo functional status results.No functional status results.No functional status results.No functional status information available.No functional status information available.No functional status information available.No functional status inf ormation available.No functional status information available.No functional stat us information available. Mental Status No Information Advance Directives Directive Response Recor ded Date/Time Advance Directives No 3:01am Organ Donor No 10/16/16 3:01am Resuscitation Status Full Code 10/16/16 3:01am Directive Response Recor ded Date/Time Advance Directives No 7:17am Organ Donor No 10/30/15 7:17am Resuscitation Status Full Code 10/30/15 7:17am Directive Response Recor ded Date/Time Advance Directives No 7:05pm Health Care Power of Family Centered Specialist No 05/28/17 7:05pm Organ Donor No 05/28/17 7:05pm Resuscitation Status Full Code 05/28/17 7:05pm Directive Response Recor ded Date/Time Advance Directives No 3:52am Health Care Power of Family Centered Specialist No 04/24/18 3:52am Organ Donor No 04/24/18 3:52am Resuscitation Status Full Code 04/24/18 3:52am Directive Response Recor ded Date/Time Advance Directives No 3:52am Health Care Power of Family Centered Specialist No 04/24/18 3:52am Organ Donor No 04/24/18 3:52am Discharge Instructions No hospital discharge instructions.No hospital discharge instructions.No hospital discharge instruction information available.No hospital discharge instruction information available.No hospital discharge instruction information available. Summary Purpose eClinicalWorks SubmissioneClinicalWorks SubmissioneClinicalWorks SubmissioneClinicalWorks SubmissioneClinicalWorks Submission Chief Complaint and Reason for Visit Chief Complaint Oral/Throat Problems Reason for Visit [id number] Additional Source Comments This clinical document has been generated using [employer] software that has been certified by the Office of the National Coordinator for Health Information Technology (ONC 15.99.04.3023.Diam.31.00.0.761650) and the National Committee for Safety Lamp Keeper (NCQA, as an eMeasure certified technology). FOR RECORDS PERTAINING TO PATIENTS WHO ARE OR HAVE BEEN ENROLLED IN A CHEMICAL D EPENDENCY/SUBSTANCE ABUSE PROGRAM, SOME INFORMATION MAY BE OMITTED. This clinica l summary was aggregated from multiple sources. Caution should be exercised in using it in the provision of clinical care. This summary normalizes information from multiple sources, and as a consequence, information in this document may ma terially change the coding, format and clinical context of patient data. In earl tion, data may be omitted in some cases. CLINICAL DECISIONS SHOULD BE BASED ON T HE PRIMARY CLINICAL RECORDS. [employer] provides no warranty or guara ntee of the accuracy or completeness of information in this document.The followi ng information is based on time limited clinical information
--- OUTSIDE RECORDS SUMMARY | 2020-06-22 11:13 | XMS REPORT | Continuity of Care Document ---
Author Organization Unknown Address Unknown Phone Unavailable Allergies Active Description Code Type Severity Reaction Onset Reported/Identified Relationship to Patient Clinical Status Yes No Known Drug Allergies [id number] Drug Allergy Unknown N/A 06/13/2012 Medications There is no data. 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 90 ENCNTR FOR SUPRVSN OF NORMAL , 04/03/2016 ANEL VOSS MD Ot Z34. 90 ENCNTR FOR SUPRVSN OF NORMAL , 05/28/2016 ANEL VOSS MD, Ot Z34. 90 ENCNTR FOR SUPRVSN OF NORMAL , 05/29/2016 ANEL VOSS MD Ot Z36 ENCOUNTER FOR SCREENING OF MOT 05/29/2016 ANEL VOSS MD, Ot Z3A. 19 19 WEEKS GESTATION OF 06/01/2016 ANEL VOSS MD Ot Z36 ENCOUNTER FOR SCREENING OF MOT 06/01/2016 ANEL VOSS MD, Ot Z3A. 19 19 WEEKS GESTATION OF 06/08/2016 ANEL VOSS MD, Ot Z36 ENCOUNTER FOR SCREENING OF MOT 06/08/2016 BIPIN MD, ANEL J Ot Z3A. 19 19 WEEKS GESTATION OF 07/10/2016 Ot 649.63 STANDING ROCK RINE SIZE DATE DISCREPANCY, ANTEPARTU 07/10/2016 ANEL VOSS MD Ot Z36 ENCOUNTER FOR SCREENING OF MOT 07/10/2016 ANEL VOSS MD Ot Z3A. 19 19 WEEKS GESTATION OF 07/11/2016 ANEL VOSS MD Ot Z36 ENCOUNTER FOR SCREENING OF MOT 07/11/2016 ANEL VOSS MD Ot Z3A. 19 19 WEEKS GESTATION OF 07/16/2016 ANEL VOSS MD Ot Z36 ENCOUNTER FOR SCREENING OF MOT 07/16/2016 ANEL VOSS MD Ot Z3A. 19 19 WEEKS GESTATION OF 07/16/2016 Ot 649.63 STANDING R[place] RINE SIZE DATE DISCREPANCY, ANTEPARTU 07/16/2016 ANEL VOSS MD Ot Z36 ENCOUNTER FOR SCREENING OF MOT 07/16/2016 ANEL VOSS MD Ot Z3A. 19 19 WEEKS GESTATION OF 07/31/2016 Ot 649.63 STANDING [place] RINE SIZE DATE DISCREPANCY, ANTEPARTU 07/31/2016 ANEL VOSS MD Ot Z34. 90 ENCNTR FOR SUPRVSN OF NORMAL , 07/31/2016 ANEL VOSS MD Ot Z36 ENCOUNTER FOR SCREENING OF MOT 07/31/2016 ANEL VOSS MD Ot Z3A. 19 19 WEEKS GESTATION OF 07/31/2016 ANEL VOSS MD Ot Z36 ENCOUNTER FOR SCREENING OF MOT 08/02/2016 ANEL VOSS MD Ot Z36 ENCOUNTER FOR SCREENING OF MOT 08/13/2016 ANEL VOSS MD Ot Z36 ENCOUNTER FOR SCREENING OF MOT 08/15/2016 ANEL VOSS MD Ot Z36 ENCOUNTER FOR SCREENING OF MOT 10/16/2016 Ot 649.63 ST[place] RINE SIZE DATE DISCREPANCY, ANTEPARTU 10/16/2016 ANEL VOSS MD Ot Z34. 90 ENCNTR FOR SUPRVSN OF NORMAL , 10/16/2016 ANEL VOSS MD Ot Z36 ENCOUNTER FOR SCREENING OF MOT 10/16/2016 ANEL VOSS MD Ot Z3A. 19 19 WEEKS GESTATION OF 10/16/2016 ANEL VOSS MD, Ot Z36 ENCOUNTER FOR SCREENING OF MOT 10/16/2016 Ot 649.63 ST[place] RINE SIZE DATE DISCREPANCY, ANTEPARTU 10/16/2016 ANEL VOSS MD, Ot Z34. 90 ENCNTR FOR SUPRVSN OF NORMAL , 10/16/2016 ANEL VOSS MD, Ot Z36 ENCOUNTER FOR SCREENING OF MOT 10/16/2016 ANEL VOSS MD, Ot Z3A. 19 19 WEEKS GESTATION OF 10/16/2016 ANEL VOSS MD, Ot Z36 ENCOUNTER FOR SCREENING OF MOT 10/16/2016 REYMUNDO WILKINSON MD Ot K02.9 DENTAL CARIES, UNSPECIFIED 10/16/2016 REYMUNDO WILKINSON MD, Ot K08.9 DISORDER OF TEETH AND SUPPORTING STRUCTU 10/26/2016 ANEL VOSS MD, Ot O48. 0 POST-TERM 10/26/2016 ANEL VOSS MD, Ot Z23 ENCOUNTER FOR IMMUNIZATION 10/26/2016 ANEL VOSS MD, Ot Z37. 0 SINGLE LIVE 10/26/2016 ANEL VOSS MD, Ot Z3A. 41 41 WEEKS GESTATION OF 11/01/2016 REYMUNDO WILKINSON MD, Ot K02.9 DENTAL CARIES, UNSPECIFIED 11/01/2016 REYMUNDO WILKINSON MD, Ot K08.9 DISORDER OF TEETH AND SUPPORTING STRUCTU 02/01/2017 ANEL VOSS MD, Ot Z34. 90 ENCNTR FOR SUPRVSN OF NORMAL , 02/06/2017 Ot 649.63 STANDING [place] RINE SIZE DATE DISCREPANCY, ANTEPARTU 02/06/2017 ANEL VOSS MD, Ot Z34. 90 ENCNTR FOR SUPRVSN OF NORMAL , 02/06/2017 ANEL VOSS MD, Ot Z36 ENCOUNTER FOR SCREENING OF MOT 02/06/2017 ANEL VOSS MD, Ot Z3A. 19 19 WEEKS GESTATION OF 02/06/2017 ANEL VOSS MD, Ot Z36 ENCOUNTER FOR SCREENING OF MOT 02/06/2017 RODRÍGUEZ DO, ARYAN K Ot N61.0 MASTITIS WITHOUT ABSCESS 02/06/2017 Ot 649.63 ST[place] RINE SIZE DATE DISCREPANCY, ANTEPARTU 02/06/2017 ANEL VOSS MD, Ot Z34. 90 ENCNTR FOR SUPRVSN OF NORMAL , 02/06/2017 ANEL VOSS MD, Ot Z36 ENCOUNTER FOR SCREENING OF MOT 02/06/2017 ANEL VOSS MD, Ot Z3A. 19 19 WEEKS GESTATION OF 02/06/2017 ANEL VOSS MD, Ot Z36 ENCOUNTER FOR SCREENING OF MOT 02/06/2017 ANEL VOSS MD, Ot Z34. 90 ENCNTR FOR SUPRVSN OF NORMAL , 02/06/2017 ANEL VOSS MD, Ot Z36 ENCOUNTER FOR SCREENING OF MOT 02/06/2017 ANEL VOSS MD, Ot3A. 19 19 WEEKS GESTATION OF 02/06/2017 ANEL VOSS MD, Ot Z36 ENCOUNTER FOR SCREENING OF MOT 02/07/2017 RODRÍGUEZ DO, ARYAN K Ot N61.0 MASTITIS WITHOUT ABSCESS 02/12/2017 RODRÍGUEZ DO, ARYAN K Ot N61.0 MASTITIS WITHOUT ABSCESS 02/14/2017 RODRÍGUEZ DO, ARYAN K Ot N61.0 MASTITIS WITHOUT ABSCESS 05/28/2017 RODRÍGUEZ DO, ARYAN K Ot N61.0 MASTITIS WITHOUT ABSCESS 05/28/2017 RODRÍGUEZ DO, ARYAN K Ot N64.4 MASTODYNIA 09/30/2017 ANEL VOSS MD, Ot Z36 ENCOUNTER FOR SCREENING OF MOT 09/30/2017 ANEL VOSS MD, Ot Z3A. 19 19 WEEKS GESTATION OF 09/30/2017 ANEL VOSS MD, Ot Z36 ENCOUNTER FOR SCREENING OF MOT 04/24/2018 ANEL VOSS MD, Ot Z34. 90 ENCNTR FOR SUPRVSN OF NORMAL , 04/24/2018 ANEL VOSS MD, Ot Z36 ENCOUNTER FOR SCREENING OF MOT 04/24/2018 ANEL VOSS MD, Ot Z3A. 19 19 WEEKS GESTATION OF 04/24/2018 ANEL VOSS MD Ot Z36 ENCOUNTER FOR SCREENING OF MOT 04/24/2018 ANEL VOSS MD, Ot Z34. 90 ENCNTR FOR SUPRVSN OF NORMAL , 04/24/2018 ANEL VOSS MD, Ot Z36 ENCOUNTER FOR SCREENING OF MOT 04/24/2018 BIPIN GAINES, ANEL Brown Ot Z3A. 19 19 WEEKS GESTATION OF 04/24/2018 ANEL VOSS MD, Ot Z36 ENCOUNTER FOR SCREENING OF [facility] 04/24/2018 RODRÍGUEZ , ARYAN Felton Ot M25.511 PAIN IN RIGHT SHOULDER 04/24/2018 [facility], ARYAN Purnima Ot S46.811 A STRAIN OF MUSC/FASC/TEND AT SHLDR/UP ARM 04/24/2018 [facility], ARYAN K Ot X50.0XX A OVEREXERTION FROM STRENUOUS MOVEMENT OR 04/28/2018 [facility], ARYAN Purnima Ot M25.511 PAIN IN RIGHT SHOULDER 04/28/2018 [facility], ARYAN Purnima Ot S46.811 A STRAIN OF MUSC/FASC/TEND AT SHLDR/UP ARM 04/28/2018 [facility], ARYAN K Ot X50.0XX A OVEREXERTION FROM STRENUOUS MOVEMENT OR 05/01/2018 [facility], ARYAN Felton Ot M25.511 PAIN IN RIGHT SHOULDER 05/01/2018 [facility], ARYAN Purnima Ot S46.811 A STRAIN OF MUSC/FASC/TEND AT SHLDR/UP ARM 05/01/2018 [facility], ARYAN K Ot X50.0XX A OVEREXERTION FROM STRENUOUS MOVEMENT OR 11/29/2018 WOLF TY APRN Ot B34 .9 VIRAL INFECTION, UNSPECIFIED 11/29/2018 WOLF TY APRN Ot D64 .9 ANEMIA, UNSPECIFIED 11/29/2018 WOLF TY APRN Ot R07 .0 PAIN IN THROAT 12/03/2018 WOLF TY APRN Ot B34 .9 VIRAL INFECTION, UNSPECIFIED 12/03/2018 WOLF TY APRN Ot D64 .9 ANEMIA, UNSPECIFIED 12/03/2018 WOLF TY APRN Ot R07 .0 PAIN IN THROAT Procedures Code Description Performed By Per esha On 72.71 VACU UM EXT DEL W EPISIOT 06/13/2012 [id number] DI VISION OF FEMALE PERINEUM, EXTERNAL AP 10/24/2016 [id number] EX TRACTION OF PRODUCTS OF CONCEPTION, [place] 10/24/2016 [id number] IN TRODUCE OTH THERAP SUBST IN [facility] 10/24/2016 Results Test Result Range Complete blood count (CBC) with automate d white blood cell (WBC) differential - 10/24/16 06:45 Blood leukocytes automated count (number/volume) 8.8 10*3/uL 4.3-11.0 Blood erythrocytes automated count (number/volume) 4.22 10*6/uL 4.35-5.85 Venous blood hemoglobin measurement (mass/volume) 11.2 g/dL 11.5-16.0 Blood hematocrit (volume fraction) 34 % 35-52 Automated erythrocyte mean corpuscular volume 81 [ foz_us] 80-99 Automated erythrocyte mean corpuscular h emoglobin (mass per erythrocyte) 27 pg 25-34 Automated erythrocyte mean corpuscular h emoglobin concentration measurement (mass/volume) 33 g/dL 32-36 Automated erythrocyte distribution width ratio 15. 9 % 10.0- 14.5 Automated blood platelet count (count/volume) 242 10*3/uL [...] 10*3 1.0-4.0 Blood monocytes automated count (number/volume) 0. 6 10*3 0.0-1.0 Automated eosinophil count 0.1 10*3/uL 0 .0-0.3 Automated blood basophil count (count/volume) 0.0 10*3/uL 0.0-0.1 Blood type T Indirect antibody screen pa bell - 10/24/16 06:45 ABO+Rh group OP NRG Transfusion band number [id number] NRG Blood group antibody screen NEGATIVE NR G Complete blood count (CBC) with automate d white blood cell (WBC) differential - 10/25/16 06:00 Blood leukocytes automated count (number/volume) 13.6 10*3/uL 4.3-11.0 Blood erythrocytes automated count (number/volume) 3.71 10*6/uL 4.35-5.85 Venous blood hemoglobin measurement (mass/volume) 9.9 g/dL 11.5-16.0 Blood hematocrit (volume fraction) 31 % 35-52 Automated erythrocyte mean corpuscular volume 82 [ foz_us] 80-99 Automated erythrocyte mean corpuscular h emoglobin (mass per erythrocyte) 27 pg 25-34 Automated erythrocyte mean corpuscular h emoglobin concentration measurement (mass/volume) 33 g/dL 32-36 Automated erythrocyte distribution width ratio 16. 1 % 10.0- 14.5 Automated blood platelet count (count/volume) 201 10*3/uL [...] 10*3 1.0-4.0 Blood monocytes automated count (number/volume) 0. 9 10*3 0.0-1.0 Automated eosinophil count 0.1 10*3/uL 0 .0-0.3 Automated blood basophil count (count/volume) 0.0 10*3/uL 0.0-0.1 Complete blood count (CBC) with automate d white blood cell (WBC) differential - 02/06/17 13:10 Blood leukocytes automated count (number/volume) 9.2 10*3/uL 4.3-11.0 Blood erythrocytes automated count (number/volume) 5.03 10*6/uL 4.35-5.85 Venous blood hemoglobin measurement (mass/volume) 13.7 g/dL 11.5-16.0 Blood hematocrit (volume fraction) 41 % 35-52 Automated erythrocyte mean corpuscular volume 81 [ foz_us] 80-99 Automated erythrocyte mean corpuscular h emoglobin (mass per erythrocyte) 27 pg 25-34 Automated erythrocyte mean corpuscular h emoglobin concentration measurement (mass/volume) 34 g/dL 32-36 Automated erythrocyte distribution width ratio 13. 6 % 10.0- 14.5 Automated blood platelet count (count/volume) 208 10*3/uL [...] 10*3 1.0-4.0 Blood monocytes automated count (number/volume) 0. 6 10*3 0.0-1.0 Automated eosinophil count 0.1 10*3/uL 0 .0-0.3 Automated blood basophil count (count/volume) 0.0 10*3/uL 0.0-0.1 Blood lactic acid measurement (moles/vol ume) - 02/06/17 13:10 Blood lactic acid measurement (moles/volume) 1.21 mmol/L 0.50-2.00 Erythrocyte sedimentation rate by benjamin gren method - 02/06/17 13:10 Erythrocyte sedimentation rate by westergren method 11 mm 0- 20 Comprehensive metabolic panel - 02/06/17 13:10 Serum or plasma sodium measurement (moles/volume) 139 mmol/L 135-145 Serum or plasma potassium measurement (moles/volume) 3.6 mmol/L 3.6-5.0 Serum or plasma chloride measurement (moles/volume) 104 mmol/L 98-107 Carbon dioxide 25 mmol/L 21-32 Serum or plasma anion gap determination (moles/volume) 10 mmol/L 5-14 Serum or plasma urea nitrogen measurement (mass/volume ) 9 mg/dL 7-18 Serum or plasma creatinine measurement (mass/volume) 0.75 mg/dL 0.60-1.30 Serum or plasma urea nitrogen/creatinine mass ratio 12 NRG Serum or plasma creatinine measurement w ith calculation of estimated glomerular filtration rate > NRG Serum or plasma glucose measurement (mass/volume) 92 mg/dL 70-105 Serum or plasma calcium measurement (mass/volume) 9.7 mg/dL 8.5-10.1 Serum or plasma total bilirubin measurement (mass/volu me) 0.3 mg/dL 0.1-1.0 Serum or plasma alkaline phosphatase rosa surement (enzymatic activity/volume) 133 U/L 40-136 Serum or plasma aspartate aminotransfera se measurement (enzymatic activity/volume) 24 U/L 5-34 Serum or plasma alanine aminotransferase measurement (enzymatic activity/volume) 24 U/L 0-55 Serum or plasma protein measurement (mass/volume) 8.2 g/dL 6.4-8.2 Serum or plasma albumin measurement (mass/volume) 4.4 g/dL 3.2-4.5 Bacterial blood culture - 02/06/17 13:10 Bacterial blood culture NG NRG Bacterial blood culture - 02/06/17 13:37 Bacterial blood culture NG NRG Complete blood count (CBC) with automate d white blood cell (WBC) differential - 05/28/17 20:10 Blood leukocytes automated count (number/volume) 7.4 10*3/uL 4.3-11.0 Blood erythrocytes automated count (number/volume) 5.09 10*6/uL 4.35-5.85 Venous blood hemoglobin measurement (mass/volume) 13.6 g/dL 11.5-16.0 Blood hematocrit (volume fraction) 41 % 35-52 Automated erythrocyte mean corpuscular volume 81 [ foz_us] 80-99 Automated erythrocyte mean corpuscular h emoglobin (mass per erythrocyte) 27 pg 25-34 Automated erythrocyte mean corpuscular h emoglobin concentration measurement (mass/volume) 33 g/dL 32-36 Automated erythrocyte distribution width ratio 11. 9 % 10.0- 14.5 Automated blood platelet count (count/volume) 229 10*3/uL [...] 10*3 1.0-4.0 Blood monocytes automated count (number/volume) 0. 2 10*3 0.0-1.0 Automated eosinophil count 0.1 10*3/uL 0 .0-0.3 Automated blood basophil count (count/volume) 0.0 10*3/uL 0.0-0.1 Blood lactic acid measurement (moles/vol ume) - 05/28/17 20:10 Blood lactic acid measurement (moles/volume) 1.43 mmol/L 0.50-2.00 Serum or plasma choriogonadotropin (preg christophe test) detection - 05/28/17 20:10 Serum or plasma choriogonadotropin ( test) de tection NEGATIVE NEGATIVE Comprehensive metabolic panel - 05/28/17 20:10 Serum or plasma sodium measurement (moles/volume) 140 mmol/L 135-145 Serum or plasma potassium measurement (moles/volume) 3.5 mmol/L 3.6-5.0 Serum or plasma chloride measurement (moles/volume) 103 mmol/L 98-107 Carbon dioxide 23 mmol/L 21-32 Serum or plasma anion gap determination (moles/volume) 14 mmol/L 5-14 Serum or plasma urea nitrogen measurement (mass/volume ) 12 mg/dL 7-18 Serum or plasma creatinine measurement (mass/volume) 0.78 mg/dL 0.60-1.30 Serum or plasma urea nitrogen/creatinine mass ratio 15 NRG Serum or plasma creatinine measurement w ith calculation of estimated glomerular filtration rate > NRG Serum or plasma glucose measurement (mass/volume) 103 mg/dL 70-105 Serum or plasma calcium measurement (mass/volume) 10.3 mg/dL 8.5-10.1 Serum or plasma total bilirubin measurement (mass/volu me) 0.2 mg/dL 0.1-1.0 Serum or plasma alkaline phosphatase rosa surement (enzymatic activity/volume) 164 U/L 40-136 Serum or plasma aspartate aminotransfera se measurement (enzymatic activity/volume) 29 U/L 5-34 Serum or plasma alanine aminotransferase measurement (enzymatic activity/volume) 28 U/L 0-55 Serum or plasma protein measurement (mass/volume) 8.5 g/dL 6.4-8.2 Serum or plasma albumin measurement (mass/volume) 4.7 g/dL 3.2-4.5 Bacterial blood culture - 05/28/17 20:10 Bacterial blood culture NG NRG Bacterial blood culture - 05/28/17 20:15 QUANTITY OF GROWTH . NRG Bacterial blood culture SEE COMMEN NRG Influenza virus A and B antigen detectio n - 11/29/18 12:43 FLU RESULT NEGATIVE FOR INFLUENZA A AND B ANTIGENS BY IA NRG COVID-19 ([facility]) - 05/17/20 16:11 Encounters ACCT No. Visit Date/Time Discharge Status Pt. Type Provider Facility Loc./Unit Complaint [id number] 05/17/2020 15:00:00 05/17/2020 23:59: 59 CLS [id number] 05/17/2020 15:00:00 Document Registration [id number] 11/29/2018 12:34:00 018 13:39:00 DIS Emergency WOLF TY [employer] [facility] ER THROAT PAIN/BILAT EAR P AIN [id number] 04/24/2018 03:38:00 018 04:21:00 DIS Emergency RODRÍGUEZ DOARYAN [facility] ER RT SHOULDER PAIN [id number] 05/28/2017 18:55:00 017 21:28:00 DIS Emergency [place] SAM [facility] ER LT BREAST PAIN [id number] 02/06/2017 12:46:00 017 14:18:00 DIS Emergency RODRÍGUEZ DOARYAN [facility] ER POSS BREAST INFECTION [id number] 10/24/2016 06:20:00 016 14:00:00 DIS Inpatient ANEL VOSS MD [facility] LDRP INDUCTION [id number] 10/16/2016 02:59:00 016 03:27:00 DIS Emergency REYMUNDO WILKINSON MD [facility] ER DENTAL PAIN [id number] 07/31/2016 09:59:00 016 23:59:59 CLS Outpatient ANEL VOSS MD [facility] RAD FOLLOW UP OB,CHECK ,BLADDER,CORD,MARGINAL PRE [id number] 05/28/2016 14:14:00 016 23:59:59 CLS Outpatient ANEL VOSS MD [facility] RAD SURVEY [id number] 03/19/2016 14:25:00 016 23:59:59 CLS Outpatient ANEL VOSS MD [facility] RAD DATING [id number] 10/30/2015 06:49:00 015 08:35:00 DIS Emergency JASPREET GAINES, ASHLEY Felton [facility] ER ABD PAIN [id number] 06/13/2012 19:07:00 Document Registration [id number] 02/22/2012 10:46:00 Document Registration [id number] 10/14/2010 21:59:00 Document Registration [id number] 11/29/2014 17:49:00 11/29/2014 23:59: 59 CLS Outpatient ENRIKE SIMMS APRN
[2020-06-22] MEDS ORDERED: ASPIRIN 81 MG CHEW (CHILDREN'S ASA) PO ONE (11:15)
[2020-06-22 11:22] LABS: ALBUMIN 4.3 GM/DL (3.2-4.5)
[2020-06-22 11:24] LABS: ALBUMIN 4.3 GM/DL (3.2-4.5); CHLORIDE 108 MMOL/L (98-107); POTASSIUM 3.6 MMOL/L (3.6-5.0); SODIUM 139 MMOL/L (135-145)
--- NOTE | 2020-06-22 11:24 | ED Chest Pain ---
General Stated Complaint: CHEST TIGHTNESS;LEFT CHEST PAIN Source: patient Exam Limitations: no limitations History of Present Illness Date Seen by Provider: Jun 22, 2020 Time Seen by Provider: 10:37 Initial Comments Here with report of intermittent chest pain for the last 2 months involving the left breast. Had pain last night and again today at work which caused her to come for evaluation. States pain is a tingle/tightness/achy sensation that lasts for a few seconds and goes away. Was concerned about frequency. Denies lumps or wounds to her breast. Has been exposed to COVID-19 past and has had 2 negative t ests with the last test 3 weeks ago. Denies sore throat, runny nose, cough, congestion or breathing problems. 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 Do not fill before 12/03/17 and only if you fail to improve Prescribed by: WOLF TY on 11/29/18 1333 Cyclobenzaprine HCl 10 Mg Tablet, 10 MG PO Q8H Prescribed by: ARYAN ARREGUIN on 04/24/18 0400 D-Methorphan Hb/P-Epd HCl/Bpm 118 Ml Syrup, 5 ML PO Q4H PRN for CONGESTION Prescribed by: WOLF TY on 11/29/18 1255 Dicloxacillin Sodium 500 Mg Capsule, 500 MG PO QID Prescribed by: ARYAN ARREGUIN on 05/28/172108 Hydrocodone Bit/Acetaminophen 1 Each Tablet, 1-2 EACH PO Q4H Prescribed by: ARYAN ARREGUIN on 05/28/172108 Naproxen 500 Mg Tablet, 500 MG PO BID Prescribed by: ARYAN ARREGUIN on 04/24/18 0400 Patient Home Medication List Home Medication List Reviewed: Yes (That is) Review of Systems Review of Systems Constitutional: see HPI; No chills, No fever EENTM: No Nose Congestion, No Nose Pain, No Throat Pain Respiratory: Denies Cough, Denies SOA at Rest Cardiovascular: Chest Pain; Denies Edema, Denies Irregular Heart Rate, Denies Lightheadedness Gastrointestinal: Denies Nausea, Denies Vomiting Genitourinary: No Symptoms Reported Musculoskeletal: no symptoms reported Skin: no symptoms reported Psychiatric/Neurological: No Symptoms Reported All Other Systems Reviewed Negative Unless Noted: Yes Past Ayaryjx-Mjvyzd-Uthwfz Hx Past Med/Social Hx: Reviewed Nursing Past Med/Soc Hx Patient Social History Alcohol Use: Occasionally Uses Recreational Drug Use: No Smoking Status: Never a Smoker 2nd Hand Smoke Exposure: No Recent Hopitalizations: No Immunizations Up To Date Tetanus Booster (TDap): Unknown PED Vaccines UTD: No Date of Influenza Vaccine: Oct 02, 2015 Seasonal Allergies Seasonal Allergies: No Past Medical History Surgeries: No Respiratory: No Cardiac: No Neurological: No Reproductive Disorders: No Genitourinary: No Gastrointestinal: No Musculoskeletal: No Endocrine: No HEENT: No Cancer: No Psychosocial: No Integumentary: Yes (MASTITIS) Blood Disorders: Yes (ANEMIA) Family Medical History Reviewed Nursing Family Hx Patient reports no known family medical history. Physical Exam Vital Signs Capillary Refill : Height, Weight, BMI Height: 5'3.00" Weight: 160lbs. 6.0oz. 72.390017st; 32.7 BMI Method:Stated General Appearance: No Apparent Distress, WD/WN HEENT: PERRL/EOMI, Pharynx Normal Neck: Non Tender, Supple Respiratory: Lungs Clear, Normal Breath Sounds Cardiovascular: Regular Rate, Rhythm, No Murmur Gastrointestinal: Non Tender, Soft Extremity: Normal Range of Motion, Non Tender Neurologic/Psychiatric: Alert, Oriented x3 Skin: Normal Color, Warm/Dry Progress/Results/Core Measures Results/Orders Lab Results Laboratory Tests Test 06/22/20 10:55 Range/Units White Blood Count 6.7 4.3-11.0 10^3/uL Red Blood Count 4.75 4.35-5.85 10^6/uL Hemoglobin 13.4 11.5-16.0 G/DL Hematocrit 40 35-52 % Mean Corpuscular Volume 83 80-99 FL Mean Corpuscular Hemoglobin 28 25-34 PG Mean Corpuscular Hemoglobin Concent 34 32-36 G/DL Red Cell Distribution Width 12.3 10.0-14.5 % Platelet Count 222 130-400 10^3/uL Mean Platelet Volume 10.0 7.4-10.4 FL Neutrophils (%) (Auto) 50 42-75 % Lymphocytes (%) (Auto) 40 12-44 % Monocytes (%) (Auto) 7 0-12 % Eosinophils (%) (Auto) 2 0-10 % Basophils (%) (Auto) 1 0-10 % Neutrophils # (Auto) 3.4 1.8-7.8 X 10^3 Lymphocytes # (Auto) 2.7 1.0-4.0 X 10^3 Monocytes # (Auto) 0.5 0.0-1.0 X 10^3 Eosinophils # (Auto) 0.2 0.0-0.3 10^3/uL Basophils # (Auto) 0.0 0.0-0.1 10^3/uL Erythrocyte Sedimentation Rate 11 0-20 MM/HR Prothrombin Time 13.2 12.2-14.7 SEC INR Comment 1.0 0.8-1.4 Activated Partial Thromboplast Time 34 24-35 SEC D-Dimer <= 0.27 0.00-0.49 UG/ML Sodium Level 139 135-145 MMOL/L Potassium Level 3.6 3.6-5.0 MMOL/L Chloride Level 108 H 98-107 MMOL/L Carbon Dioxide Level 22 21-32 MMOL/L Anion Gap 9 5-14 MMOL/L Blood Urea Nitrogen 10 7-18 MG/DL Creatinine 0.75 0.60-1.30 MG/DL Estimat Glomerular Filtration Rate > 60 BUN/Creatinine Ratio 13 Glucose Level 109 H 70-105 MG/DL Calcium Level 9.5 8.5-10.1 MG/DL Corrected Calcium 9.3 8.5-10.1 MG/DL Magnesium Level 2.0 1.6-2.4 MG/DL Total Bilirubin 0.4 0.1-1.0 MG/DL Direct Bilirubin 0.2 0.0-0.3 MG/DL Indirect Bilirubin 0.2 MG/DL Aspartate Amino Transf (AST/SGOT) 17 5-34 U/L Alanine Aminotransferase (ALT/SGPT) 18 0-55 U/L Alkaline Phosphatase 96 40-136 U/L Lactate Dehydrogenase 188 125-220 U/L Myoglobin 27.5 10.0-92.0 NG/ML Troponin I < 0.028 <0.028 NG/ML C-Reactive Protein High Sensitivity 0.17 0.00-0.50 MG/DL Total Protein 7.7 6.4-8.2 GM/DL Albumin 4.3 3.2-4.5 GM/DL Procalcitonin 0.01 <0.10 NG/ML My Orders Orders - REYMUNDO WILKINSON MD Cbc With Automated Diff (06/22/20 11:06) Magnesium (06/22/20 11:06) Chest 1 View, Ap/Pa Only (06/22/20 11:06) Ekg Tracing (06/22/20 11:06) Comprehensive Metabolic Panel (06/22/20 11:06) Myoglobin Serum (06/22/20 11:06) Protime With Inr (06/22/20 11:06) Partial Thromboplastin Time (06/22/20 11:06) O2 (06/22/20 11:06) Monitor-Rhythm Ecg Trace Only (06/22/20 11:06) Lipid Panel (06/23/20 06:00) Ed Iv/Invasive Line Start (06/22/20 11:06) Troponin I (06/22/20 11:06) Aspirin Chewable Tablet (Baby Aspirin Ch (06/22/20 11:15) Procalcitonin (Pct) (06/22/20 11:06) Hs C Reactive Protein (06/22/20 11:06) Erythrocyte Sedimentation Rate (06/22/20 11:06) LDH (06/22/20 11:06) Liver Panel (06/22/20 11:06) Fibrin Degradation Products (06/22/20 10:55) Medications Given in ED Current Medications Medications Dose Ordered Sig/Jorge Route Start Time Stop Time Status Last Admin Dose Admin Aspirin 324 mg ONCE ONCE PO 06/22/20 11:15 06/22/20 11:16 DC 06/22/20 11:25 324 MG Progress Progress Note : Progress Note Seen and evaluated. IV, labs, chest x-ray and EKG ordered. ASA 324 mg by mouth ordered. Monitor patient. 1222: No acute findings. No indication of COVID-19 i nfection at this point. I did not do COVID-19 testing given her current presentation and the labs. This may be related more to breast and/or anterior muscle and patient seemed to indicate that she thought that as well. Certainly no findings of heart problems or blood clots currently. Chest x-ray is negative. All this was discussed with the patient. She does need to follow-up with her primary care doctor for continued workup including possible breast workup if indicated. I will send a copy of the chart to him. Discharged home with return precautions. Patient verbalize understanding instructions and agreement with plan. Initial ECG Impression Date: Jun 22, 2020 Initial ECG Impression Time: 10:39 Initial ECG Rate: 70 Initial ECG Rhythm: Normal Sinus Initial ECG Impression: Normal Initial ECG Comparisson: No Previous ECG Available Comment Sinus rhythm with normal axis. No evidence of ST elevation WI. No previous available for comparison. Interpreted by me. 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 Time of exam: 11:48 AM No prior studies are available for comparison. The heart size is normal. The pulmonary vascularity is unremarkable. The lungs are clear. No infiltrate, effusion or pneumothorax is detected. Impression: No acute cardiopulmonary process is detected. Dictated on workstation # [id number] Dict: 06/22/20 1208 Trans: 06/22/20 1209 CV [id number] Interpreted by: GEORGETTE PAZ MD Electronically signed by: Departure Impression Primary Impression: Left-sided chest wall pain Disposition: 01 HOME, SELF-CARE Condition: Improved Departure-Patient Inst. Decision time for Depature: 12:23 Referrals: ANEL VOSS MD (PCP/Family) Primary Care Physician Patient Instructions: Chest Pain (DC) Add. Discharge Instructions: You may take ibuprofen 600 mg every 8 hours as needed for pain. You may also take Tylenol/acetaminophen 1000 mg every 8 hours as needed for pain. Drink plenty of fluids. Follow-up with your DrAntoine in a few days for recheck. Call his office today for appointment. Discuss with him regarding the breast and chest pain. Return for worse pain, fever, vomiting, weakness, breathing problems or other concerns as needed. Copy Copies To 1: ANEL VOSS MD, TIMOTHY D MD Jun 22, 2020 11:24
[2020-06-22 11:25] LABS: CALCIUM 9.5 MG/DL (8.5-10.1); TOTAL PROTEIN 7.7 GM/DL (6.4-8.2)
[2020-06-22 11:26] LABS: BILIRUBIN,TOTAL 0.4 MG/DL (0.1-1.0); GLUCOSE 109 MG/DL (70-105); TOTAL PROTEIN 7.8 GM/DL (6.4-8.2)
[2020-06-22 11:27] LABS: ALKALINE PHOSPHATASE 96 U/L (40-136); CARBON DIOXIDE 22 MMOL/L (21-32)
[2020-06-22 11:28] LABS: BILIRUBIN,TOTAL 0.5 MG/DL (0.1-1.0)
[2020-06-22 11:30] LABS: ALANINE AMINOTRANSFERASE 18 U/L (0-55); ALKALINE PHOSPHATASE 96 U/L (40-136); BILIRUBIN,DIRECT 0.2 MG/DL (0.0-0.3); BILIRUBIN,INDIRECT 0.2 MG/DL; CREATININE SERUM 0.75 MG/DL (0.60-1.30); GFR ESTIMATED > 60
[2020-06-22 11:31] LABS: BUN/CREATININE RATIO 13
[2020-06-22 11:33] LABS: ALANINE AMINOTRANSFERASE 17 U/L (0-55)
[2020-06-22 11:38] LABS: FIBRIN DEGRADATION PRODUCTS <= 0.27 UG/ML (0.00-0.49); PARTIAL THROMBOPLASTIN TIME 34 SEC (24-35); PROTHROMBIN TIME PATIENT 13.2 SEC (12.2-14.7)
--- NOTE | 2020-06-22 12:10 | Diagnostic Imaging Report ---
Indication: Chest tightness. Time of exam: 11:48 AM No prior studies are available for comparison. The heart size is normal. The pulmonary vascularity is unremarkable. The lungs are clear. No infiltrate, effusion or pneumothorax is detected. Impression: No acute cardiopulmonary process is detected. Dictated by: Dictated on workstation # [id number]
[2020-06-22 12:40] VITALS: BP 133/85
== END 2020-06-22 12:40 | disposition home or self-care (01) ==
LOC: EDUNIT# 10:27 → ER 10:29
DX: R07.89 Other chest pain (principal)
CPT/HCPCS: 36415; 71045; 80053; 80076; 82248; 83615; 83735; 83874; 84145; 84484; 85025; 85379; 85610; 85652; 85730; 86141; 93005; 93041

== ENCOUNTER 2020-12-27 10:17 | Emergency (ER) | payer SELFPAY ==
[~2020-12-27] VITALS: Ht 160 cm; Wt 78.9 kg
[2020-12-27] MEDS ORDERED: ONDANSETRON 4 MG (ZOFRAN) ORAL DISSOLVE TAB SL STA (10:41)
--- NOTE | 2020-12-27 10:41 | ED Cough/URI ---
General Stated Complaint: COUGH,VOMITING DIARRHEA Source: patient History of Present Illness Date Seen by Provider: Dec 27, 2020 Time Seen by Provider: 10:41 Initial Comments 25-year-old female presents with some abdominal pain and cramping, some diarr hea. She reports that the symptoms started over the last day or so. 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 She has mild nausea but denies any vomiting. Patient also reports a cough. However the cough has been there for about a month. She recovered from coronavirus about 3 to 4 weeks ago and has had a persistent cough since then. She denies any shortness of breath, no fever or chills. No loss of sense of taste or smell at this time. Allergies and Home Medications Allergies Coded Allergies: No Known Drug Allergies (Unverified , 06/13/12) Home Medications Azithromycin 250 Mg Tablet, 250 MG PO UD TAKE 2 TABLETS ON DAY ONE THEN TAKE 1 TABLET DAILY FOR FOUR MORE DAYS. Do not fill before 12/03/17 and only if you fail to improve Prescribed by: WOLF TY on 11/29/18 1333 Cyclobenzaprine HCl 10 Mg Tablet, 10 MG PO Q8H Prescribed by: ARYAN ARREGUIN on 04/24/18 0400 D-Methorphan Hb/P-Epd HCl/Bpm 118 Ml Syrup, 5 ML PO Q4H PRN for CONGESTION Prescribed by: WOLF TY on 11/29/18 1255 Dicloxacillin Sodium 500 Mg Capsule, 500 MG PO QID Prescribed by: ARYAN ARREGUIN on 05/28/17 210 Hydrocodone Bit/Acetaminophen 1 Each Tablet, 1-2 EACH PO Q4H Prescribed by: ARYAN ARREGUIN on 05/28/172108 Naproxen 500 Mg Tablet, 500 MG PO BID Prescribed by: ARYAN ARREGUIN on 04/24/18 0400 Patient Home Medication List Home Medication List Reviewed: Yes Review of Systems Review of Systems Constitutional: No chills, No fever; malaise EENTM: no symptoms reported Respiratory: cough; No dyspnea on exertion, No short of breath Cardiovascular: No chest pain, No palpitations Gastrointestinal: RLQ, LLQ, abdominal pain, diarrhea; No loss of appetite; nausea; No vomiting Genitourinary: no symptoms reported Musculoskeletal: no symptoms reported Skin: no symptoms reported Psychiatric/Neurological: No Symptoms Reported Hematologic/Lymphatic: No Symptoms Reported Immunological/Allergic: no symptoms reported Past Puozjqm-Keokcq-Snnmae Hx Past Med/Social Hx: Reviewed Nursing Past Med/Soc Hx Patient Social History 2nd Hand Smoke Exposure: No Recent Hopitalizations: No Immunizations Up To Date Tetanus Booster (TDap): Unknown PED Vaccines UTD: No Date of Influenza Vaccine: Oct 02, 2015 Seasonal Allergies Seasonal Allergies: No Past Medical History Surgeries: No Respiratory: No Cardiac: No Neurological: No Reproductive Disorders: No Genitourinary: No Gastrointestinal: No Musculoskeletal: No Endocrine: No HEENT: No Cancer: No Psychosocial: No Integumentary: Yes (MASTITIS) Blood Disorders: Yes (ANEMIA) Family Medical History Patient reports no known family medical history. Physical Exam Vital Signs - First Documented 12/27/20 10:32 Temp 37.1 Pulse 82 Resp 20 B/P (MAP) 132/79 (96) Pulse Ox 99 O2 Delivery Room Air Capillary Refill : Height: 5'3.00" Weight: 160lbs. 6.0oz. 72.757937zh; 35.00 BMI Method:Stated General Appearance: WD/WN, no apparent distress Neck: full range of motion, supple Respiratory: lungs clear, normal breath sounds, no respiratory distress, no accessory muscle use Cardiovascular: normal peripheral pulses, regular rate, rhythm, no edema Gastrointestinal: soft; No guarding, No rebound; tenderness (Mild bilateral lower quadrant) Extremities: non-tender, normal inspection Neurologic/Psychiatric: alert, normal mood/affect, oriented x 3 Skin: normal color, warm/dry Progress/Results/Core Measures Suspected Sepsis SIRS Temperature: Pulse: Respiratory Rate: Laboratory Tests 12/27/20 11:00: White Blood Count 9.3 Blood Pressure / Mean: Laboratory Tests 12/27/20 11:00: Creatinine 0.75, Platelet Count 234, Total Bilirubin 0.5 Results/Orders Lab Results Laboratory Tests Test 12/27/20 11:00 Range/Units White Blood Count 9.3 4.3-11.0 10^3/uL Red Blood Count 4.93 3.80-5.11 10^6/uL Hemoglobin 13.9 11.5-16.0 g/dL Hematocrit 42 35-52 % Mean Corpuscular Volume 85 80-99 fL Mean Corpuscular Hemoglobin 28 25-34 pg Mean Corpuscular Hemoglobin Concent 33 32-36 g/dL Red Cell Distribution Width 12.2 10.0-14.5 % Platelet Count 234 130-400 10^3/uL Mean Platelet Volume 9.4 9.0-12.2 fL Immature Granulocyte % (Auto) 1 % Neutrophils (%) (Auto) 72 42-75 % Lymphocytes (%) (Auto) 19 12-44 % Monocytes (%) (Auto) 7 0-12 % Eosinophils (%) (Auto) 2 0-10 % Basophils (%) (Auto) 0 0-10 % Neutrophils # (Auto) 6.7 1.8-7.8 10^3/uL Lymphocytes # (Auto) 1.8 1.0-4.0 10^3/uL Monocytes # (Auto) 0.6 0.0-1.0 10^3/uL Eosinophils # (Auto) 0.2 0.0-0.3 10^3/uL Basophils # (Auto) 0.0 0.0-0.1 10^3/uL Immature Granulocyte # (Auto) 0.1 0.0-0.1 10^3/uL Sodium Level 137 135-145 MMOL/L Potassium Level 3.6 3.6-5.0 MMOL/L Chloride Level 107 98-107 MMOL/L Carbon Dioxide Level 24 21-32 MMOL/L Anion Gap 6 5-14 MMOL/L Blood Urea Nitrogen 12 7-18 MG/DL Creatinine 0.75 0.60-1.30 MG/DL Estimat Glomerular Filtration Rate > 60 BUN/Creatinine Ratio 16 Glucose Level 94 70-105 MG/DL Calcium Level 9.0 8.5-10.1 MG/DL Corrected Calcium 8.8 8.5-10.1 MG/DL Total Bilirubin 0.5 0.1-1.0 MG/DL Aspartate Amino Transf (AST/SGOT) 21 5-34 U/L Alanine Aminotransferase (ALT/SGPT) 22 0-55 U/L Alkaline Phosphatase 112 40-136 U/L C-Reactive Protein High Sensitivity 0.48 0.00-0.50 MG/DL Total Protein 8.0 6.4-8.2 GM/DL Albumin 4.2 3.2-4.5 GM/DL Lipase 25 8-78 U/L Micro Results Microbiology 12/27/20 Influenza Types A,B Antigen (ANGELITA) - Final, Complete My Orders Orders - BOGDAN BENSON DO Chest Pa/Lat (2 View) (12/27/20 10:41) Abdomen/Kub 1view (12/27/20 10:41) Cbc With Automated Diff (12/27/20 10:41) Comprehensive Metabolic Panel (12/27/20 10:41) Hs C Reactive Protein (12/27/20 10:41) Lipase (12/27/20 10:41) Influenza A And B Antigens (12/27/20 10:41) Ondansetron Oral Dissolve Tab (Zofran (12/27/20 10:41) Lactated Ringers (Lr 1000 Ml Iv Solution (12/27/20 10:51) Ed Iv/Invasive Line Start (12/27/20 10:51) Vital Signs/I&O 12/27/20 10:32 Temp 37.1 Pulse 82 Resp 20 B/P (MAP) 132/79 (96) Pulse Ox 99 O2 Delivery Room Air Capillary Refill : Progress Note : Time: 11:46 Progress Note Patient's labs, history and exam are consistent with a viral gastroenteritis. She has no exposure. We will provide her some Zofran. She should refrain from work until 24 hours after her diarrhea resolves. Patient stable will be discharged Diagnostic Imaging Diagonstic Imaging: Xray Comments [facility]. 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 Patient reports blood on toilet paper after wiping today. Patient denies dysuria and had two bouts of diarrhea yesterday and then today. Patient reports coughing up something that looked like a ramen noodle/ worm. Patient reports having Covid in November. EXAM: Chest x-ray PA and lateral views. COMPARISONS: Chest x-ray dated 06/22/2020. FINDINGS: Lungs/pleura: Lungs are clear. There is no pneumothorax. There is no pleural effusion. Mediastinum: Unremarkable. Pulmonary vasculature: Unremarkable. Heart: Unremarkable. Bones/extrathoracic soft tissue: Unremarkable. IMPRESSION: There is no radiographic evidence of acute cardiopulmonary process. Dictated on workstation # [id number] [facility] [place] NAME: CRYSTAL ROPER [facility] REC#: [id number] PT STATUS: REG ER : 1995 PHYSICIAN: BOGDAN BENSON DO ADMIT DATE: 12/27/20/ER Draft Date of Exam:12/27/20 ABDOMEN/KUB 1VIEW INDICATION: Several day history of abdominal pain, increasing in severity. Some blood. Recent COVID infection. TECHNIQUE: Single supine view of the abdomen 11:22 AM CORRELATION STUDY: None FINDINGS: Gas and some stool within the colon. Slight colonic wall thickening of the descending colon. No obstructive appearance. No gross free intraperitoneal air on this limited examination. No pathologic internal calcifications. IMPRESSION: 1. Nonobstructive bowel gas pattern. Question a few thickened loops of descending colon could be reflective of a nonspecific colitis. Dictated on workstation # [id number] Dict: 12/27/20 1133 Trans: 12/27/20 1139 [place] [id number] Interpreted by: VALERIE DUMONT DO Electronically signed by: Reviewed: Reviewed by Me, Reviewed/Discussed Departure Impression Primary Impression: Infectious colitis, enteritis and gastroenteritis Disposition: HOME, SELF-CARE Condition: Stable Departure-Patient Inst. Referrals: ANEL VOSS MD (PCP/Family) Primary Care Physician Patient Instructions: Colitis (DC), [id number] Scripts Ondansetron (Ondansetron Odt) 4 Mg Tab.rapdis 4 MG PO Q6H PRN for NAUSEA/VOMITING, #20 TAB 0 Refills Prov: BOGDAN BENSON DO 12/27/20 BOGDAN BENSON DO Dec 27, 2020 10:41
[2020-12-27] MEDS ORDERED: LACTATED RINGERS 1,000 ML IV STA (10:51)
[2020-12-27 11:10] LABS: BASOPHILS % (AUTO) 0 % (0-10); EOSINOPHILS # (AUTO) 0.2 10^3/uL (0.0-0.3); EOSINOPHILS % (AUTO) 2 % (0-10); HEMATOCRIT 42 % (35-52); HEMOGLOBIN 13.9 g/dL (11.5-16.0); LYMPHOCYTES # (AUTO) 1.8 10^3/uL (1.0-4.0); LYMPHOCYTES % (AUTO) 19 % (12-44); MEAN CORPUSCULAR HEMOGLOBIN 28 pg (25-34); MEAN CORPUSCULAR HGB CONC 33 g/dL (32-36); MEAN CORPUSCULAR VOLUME 85 fL (80-99); MEAN PLATELET VOLUME 9.4 fL (9.0-12.2); MONOCYTES # (AUTO) 0.6 10^3/uL (0.0-1.0); MONOCYTES % (AUTO) 7 % (0-12); NEUTROPHILS # (AUTO) 6.7 10^3/uL (1.8-7.8); NEUTROPHILS % (AUTO) 72 % (42-75); PLATELET COUNT 234 10^3/uL (130-400); WHITE BLOOD COUNT 9.3 10^3/uL (4.3-11.0)
[2020-12-27 11:25] LABS: ALBUMIN 4.2 GM/DL (3.2-4.5); CHLORIDE 107 MMOL/L (98-107); POTASSIUM 3.6 MMOL/L (3.6-5.0); SODIUM 137 MMOL/L (135-145)
[2020-12-27 11:27] LABS: GLUCOSE 94 MG/DL (70-105)
[2020-12-27 11:28] LABS: CARBON DIOXIDE 24 MMOL/L (21-32)
[2020-12-27 11:29] LABS: BILIRUBIN,TOTAL 0.5 MG/DL (0.1-1.0)
[2020-12-27 11:31] LABS: ALKALINE PHOSPHATASE 112 U/L (40-136); CREATININE SERUM 0.75 MG/DL (0.60-1.30); GFR ESTIMATED > 60
[2020-12-27 11:32] LABS: BUN/CREATININE RATIO 16
[2020-12-27 11:34] LABS: ALANINE AMINOTRANSFERASE 22 U/L (0-55); LIPASE 25 U/L (8-78)
--- NOTE | 2020-12-27 11:34 | Diagnostic Imaging Report ---
CLINICAL INDICATION: Patient with lower abdominal pain began over the weekend and has progressively gotten worse. Patient reports blood on toilet paper after wiping today. Patient denies dysuria and had two bouts of diarrhea yesterday and then today. Patient reports coughing up something that looked like a ramen noodle/ worm. Patient reports having Covid in November. EXAM: Chest x-ray PA and lateral views. COMPARISONS: Chest x-ray dated 06/22/2020. FINDINGS: Lungs/pleura: Lungs are clear. There is no pneumothorax. There is no pleural effusion. Mediastinum: Unremarkable. Pulmonary vasculature: Unremarkable. Heart: Unremarkable. Bones/extrathoracic soft tissue: Unremarkable. IMPRESSION: There is no radiographic evidence of acute cardiopulmonary process. Dictated by: Dictated on workstation # [id number]
--- NOTE | 2020-12-27 11:40 | Diagnostic Imaging Report ---
INDICATION: Several day history of abdominal pain, increasing in severity. Some blood. Recent COVID infection. TECHNIQUE: Single supine view of the abdomen 11:22 AM CORRELATION STUDY: None FINDINGS: Gas and some stool within the colon. Slight colonic wall thickening of the descending colon. No obstructive appearance. No gross free intraperitoneal air on this limited examination. No pathologic internal calcifications. IMPRESSION: 1. Nonobstructive bowel gas pattern. Question a few thickened loops of descending colon could be reflective of a nonspecific colitis. Dictated by: Dictated on workstation # [id number]
[2020-12-27] MEDS ORDERED: ONDA4TAB11 PO (11:49)
[2020-12-27 11:54] VITALS: BP 132/79
== END 2020-12-27 11:54 | disposition home or self-care (01) ==
LOC: EDUNIT# 10:17 → ER 10:19
DX: K52.9 Noninfective gastroenteritis and colitis, unspecified (principal)
CPT/HCPCS: 36415; 71046; 74018; 80053; 83690; 84703; 85025; 86141; 87804

== ENCOUNTER 2021-09-18 17:10 | Emergency (ER) | payer SELFPAY ==
[~2021-09-18] VITALS: Ht 160 cm; Wt 78.5 kg
[~2021-09-18 17:10] MED LIST changes: +ONDA4TAB11 PO
[2021-09-18 17:19] VITALS: BP 137/87
[2021-09-18] MEDS ORDERED: fentaNYL INJ 100 MCG/2 ML AMP IVP ONE (17:30)
[2021-09-18] MEDS ORDERED: LIDOCAINE 2% VISCOUS 15 ML UDC PO ONE (17:30)
[2021-09-18] MEDS ORDERED: ANTACID SUSP 30 ML UDC (MYLANTA) PO ONE (17:30)
--- NOTE | 2021-09-18 17:30 | ED Abdominal Pain ---
General Stated Complaint: ABD PAIN Source of Information: Patient Exam Limitations: No Limitations History of Present Illness Date Seen by Provider: Sep 18, 2021 Time Seen by Provider: 17:20 Initial Comments To ER with 1 week history of right sided upper abdominal pain. No nausea. She has been taking ibuprofen at night to help with the pain and it is effective. No nausea no vomiting and food does not affect the pain. Deep breathing coughing and sneezing does worsen the pain. No shortness of breath. She has had fevers and chills intermittently. She has not had a bowel movement in 2 weeks though she is passing gas. No urinary symptoms. She has a normal appetite but has lost 14 pounds over the past few weeks she states. Timing/Duration: Getting Worse, Other Severity/Quality: Moderate Location: RUQ Radiation: No Radiation Activities at Onset: None Allergies and Home Medications Allergies Coded Allergies: No Known Drug Allergies (Unverified , 06/13/12) Patient Home Medication List Home Medication List Reviewed: Yes Azithromycin (Azithromycin) 250 Mg Tablet, 250 MG PO UD Prescribed by: WOLF TY on 11/29/18 1333 Cyclobenzaprine HCl (Cyclobenzaprine HCl) 10 Mg Tablet, 10 MG PO Q8H Prescribed by: ARYAN ARREGUIN on 04/24/18 0400 D-Methorphan Hb/P-Epd HCl/Bpm (Bromfed Dm Cough Syrup) 118 Ml Syrup, 5 ML PO Q4H PRN for CONGESTION Prescribed by: WOLF TY on 11/29/18 1255 Dicloxacillin Sodium (Dicloxacillin Sodium) 500 Mg Capsule, 500 MG PO QID Prescribed by: ARYAN ARREGUIN on 05/28/172108 Hydrocodone Bit/Acetaminophen (Lortab 7.5 Mg Tablet) 1 Each Tablet, 1-2 EACH PO Q4H Prescribed by: ARYAN ARREGUIN on 05/28/172108 Naproxen (Naproxen) 500 Mg Tablet, 500 MG PO BID Prescribed by: ARYAN ARREGUIN on 04/24/18 0400 Ondansetron (Ondansetron Odt) 4 Mg Tab.rapdis, 4 MG PO Q6H PRN for NAUSEA/VOMITING Prescribed by: BOGDAN BENSON on 12/27/20 1149 [biotin] , (Reported) Entered as Reported by: CEDRIC ACEVES on 05/28/171921 [[place]] , (Reported) Entered as Reported by: CEDRIC ACEVES on 05/28/171921 Review of Systems Review of Systems Constitutional: see HPI EENTM: No Symptoms Reported Respiratory: No Symptoms Reported Cardiovascular: No Symptoms Reported Gastrointestinal: See HPI, Abdominal Pain; Denies Constipated, Denies Diarrhea, Denies Nausea Genitourinary: No Symptoms Reported Musculoskeletal: no symptoms reported Skin: no symptoms reported Psychiatric/Neurological: No Symptoms Reported Endocrine: No Symptoms Reported Hematologic/Lymphatic: No Symptoms Reported Past Sjtydcu-Eyoxxz-Raddlk Hx Immunizations Up To Date Tetanus Booster (TDap): Unknown PED Vaccines UTD: No Seasonal Allergies Seasonal Allergies: No Past Medical History Surgeries: No Respiratory: No Cardiac: No Neurological: No Reproductive Disorders: No Genitourinary: No Gastrointestinal: No Musculoskeletal: No Endocrine: No HEENT: No Cancer: No Psychosocial: No Integumentary: Yes (MASTITIS) Blood Disorders: Yes (ANEMIA) Family Medical History Patient reports no known family medical history. Physical Exam Vital Signs Vital Signs - First Documented 09/18/21 17:19 Pulse 96 Resp 17 B/P (MAP) 137/87 (104) Pulse Ox 99 O2 Delivery Room Air Capillary Refill : Height/Weight/BMI Height: 5'3.00" Weight: 160lbs. 6.0oz. [id number]; 30.00 BMI Method:Stated General Appearance: WD/WN, no apparent distress HEENT: PERRL/EOMI, normal ENT inspection Respiratory: normal breath sounds, no respiratory distress, no accessory muscle use Cardiovascular: regular rate, rhythm, no murmur Gastrointestinal: normal bowel sounds, non tender, soft; No tenderness Extremities: normal range of motion, non-tender Neurologic/Psychiatric: alert, normal mood/affect, oriented x 3 Skin: normal color, warm/dry Progress/Results/Core Measures Results/Orders Lab Results Laboratory Tests Test 09/18/21 17:28 09/18/21 17:35 Range/Units White Blood Count 8.2 4.3-11.0 10^3/uL Red Blood Count 4.42 3.80-5.11 10^6/uL Hemoglobin 12.6 11.5-16.0 g/dL Hematocrit 39 35-52 % Mean Corpuscular Volume 88 80-99 fL Mean Corpuscular Hemoglobin 29 25-34 pg Mean Corpuscular Hemoglobin Concent 33 32-36 g/dL Red Cell Distribution Width 11.5 10.0-14.5 % Platelet Count 263 130-400 10^3/uL Mean Platelet Volume 9.4 9.0-12.2 fL Immature Granulocyte % (Auto) 0 % Neutrophils (%) (Auto) 72 42-75 % Lymphocytes (%) (Auto) 19 12-44 % Monocytes (%) (Auto) 8 0-12 % Eosinophils (%) (Auto) 1 0-10 % Basophils (%) (Auto) 1 0-10 % Neutrophils # (Auto) 5.8 1.8-7.8 10^3/uL Lymphocytes # (Auto) 1.5 1.0-4.0 10^3/uL Monocytes # (Auto) 0.6 0.0-1.0 10^3/uL Eosinophils # (Auto) 0.1 0.0-0.3 10^3/uL Basophils # (Auto) 0.0 0.0-0.1 10^3/uL Immature Granulocyte # (Auto) 0.0 0.0-0.1 10^3/uL Sodium Level 136 135-145 MMOL/L Potassium Level 3.8 3.6-5.0 MMOL/L Chloride Level 105 98-107 MMOL/L Carbon Dioxide Level 23 21-32 MMOL/L Anion Gap 8 5-14 MMOL/L Blood Urea Nitrogen 9 7-18 MG/DL Creatinine 0.75 0.60-1.30 MG/DL Estimat Glomerular Filtration Rate 92 BUN/Creatinine Ratio 12 Glucose Level 106 H 70-105 MG/DL Calcium Level 9.7 8.5-10.1 MG/DL Corrected Calcium 9.8 8.5-10.1 MG/DL Total Bilirubin 0.5 0.1-1.0 MG/DL Aspartate Amino Transf (AST/SGOT) 20 5-34 U/L Alanine Aminotransferase (ALT/SGPT) 28 0-55 U/L Alkaline Phosphatase 105 40-136 U/L Total Protein 8.4 H 6.4-8.2 GM/DL Albumin 3.9 3.2-4.5 GM/DL Lipase 32 8-78 U/L Serum Test, Qualitative NEGATIVE NEGATIVE Urine Color YELLOW Urine Clarity CLEAR Urine pH 8.0 5-9 Urine Specific [place] 1.020 1.016-1.022 Urine Protein NEGATIVE NEGATIVE Urine Glucose (UA) NEGATIVE NEGATIVE Urine Ketones NEGATIVE NEGATIVE Urine Nitrite NEGATIVE NEGATIVE Urine Bilirubin NEGATIVE NEGATIVE Urine Urobilinogen 2.0 < = 1.0 MG/DL Urine Leukocyte Esterase 2+ H NEGATIVE Urine RBC (Auto) 2+ H NEGATIVE Urine RBC 5-10 H /HPF Urine WBC 10-25 H /HPF Urine Squamous Epithelial Cells 5-10 /HPF Urine Crystals PRESENT H /LPF Urine Amorphous Sediment MOD GIA PHOSPHATE H /LPF Urine Bacteria FEW H /HPF Urine Casts NONE /LPF Urine Mucus NEGATIVE /LPF Urine Culture Indicated YES My Orders Orders - WOLF TY [employer] Lipase (09/18/21 17:24) Cbc With Automated Diff (09/18/21 17:24) Comprehensive Metabolic Panel (09/18/21 17:24) Ua Culture If Indicated (09/18/21 17:24) Ed Iv/Invasive Line Start (09/18/21 17:24) Ct Abdomen/Pelvis W (09/18/21 17:24) Fentanyl Inj (Sublimaze Injection) (09/18/21 17:30) Hcg,Qualitative Serum (09/18/21 17:24) Antacid Suspension (Mylanta Suspension (09/18/21 17:30) Lidocaine 2% Viscous 15 Ml (Xylocaine Vi (09/18/21 17:30) Urine Culture (09/18/21 17:35) Ceftriaxone (Rocephin) (09/18/21 18:00) Iohexol Injection (Omnipaque 350 Mg/Ml 1 (09/18/21 18:15) Received Contrast (Hold Metformin- Contr (09/18/21 18:15) Ns (Ivpb) (Sodium Chloride 0.9% Ivpb Bag (09/18/21 18:15) Medications Given in ED Current Medications Medications Dose Ordered Sig/Jorge Route Start Time Stop Time Status Last Admin Dose Admin Al Hydrox/Mg Hydrox/Simethicone 30 ml ONCE ONCE PO 09/18/21 17:30 09/18/21 17:31 DC 09/18/21 17:42 30 ML Ceftriaxone Sodium 1000 mg/ Sterile Water 10 ml @ 200 mls/hr ONCE ONCE IV 09/18/21 18:00 09/18/21 18:02 DC 09/18/21 18:17 200 MLS/HR Fentanyl Citrate 50 mcg ONCE ONCE IVP 09/18/21 17:30 09/18/21 17:31 DC 09/18/21 17:42 50 MCG Iohexol 100 ml ONCE ONCE IV 09/18/21 18:15 09/18/21 18:16 DC 09/18/21 18:03 99 ML Lidocaine HCl 15 ml ONCE ONCE PO 09/18/21 17:30 09/18/21 17:31 DC 09/18/21 17:42 15 ML Sodium Chloride 100 ml ONCE ONCE IV 09/18/21 18:15 09/18/21 18:16 DC 09/18/21 18:03 80 ML Vital Signs/I&O 09/18/21 17:19 Pulse 96 Resp 17 B/P (MAP) 137/87 (104) Pulse Ox 99 O2 Delivery Room Air Departure Impression Primary Impression: Pyelonephritis Additional Impression: Constipation Disposition: HOME, SELF-CARE Condition: Stable Departure-Patient Inst. Decision time for Depature: 18:41 Referrals: ANEL VOSS MD (PCP/Family) Primary Care Physician Patient Instructions: Kidney Infection (DC), Constipation, Adult ED Add. Discharge Instructions: 1. Increase water intake 2. Antibiotics as directed 3. Follow-up with your doctor later this week for recheck. Return to ER for any worsening. Scripts Polyethylene Glycol 3350 (Miralax) 17 Gm Powd.pack 17 GM PO BID, #10 EACH Prov: WOLF TY [employer] 09/18/21 Cefdinir (Cefdinir) 300 Mg Capsule 300 MG PO BID, #14 CAP Prov: WOLF TY [employer] 09/18/21 WOLF TY [employer] Sep 18, 2021 17:30
[2021-09-18 17:36] LABS: BASOPHILS % (AUTO) 1 % (0-10); EOSINOPHILS # (AUTO) 0.1 10^3/uL (0.0-0.3); EOSINOPHILS % (AUTO) 1 % (0-10); HEMATOCRIT 39 % (35-52); HEMOGLOBIN 12.6 g/dL (11.5-16.0); LYMPHOCYTES # (AUTO) 1.5 10^3/uL (1.0-4.0); LYMPHOCYTES % (AUTO) 19 % (12-44); MEAN CORPUSCULAR HEMOGLOBIN 29 pg (25-34); MEAN CORPUSCULAR HGB CONC 33 g/dL (32-36); MEAN CORPUSCULAR VOLUME 88 fL (80-99); MEAN PLATELET VOLUME 9.4 fL (9.0-12.2); MONOCYTES # (AUTO) 0.6 10^3/uL (0.0-1.0); MONOCYTES % (AUTO) 8 % (0-12); NEUTROPHILS # (AUTO) 5.8 10^3/uL (1.8-7.8); NEUTROPHILS % (AUTO) 72 % (42-75); PLATELET COUNT 263 10^3/uL (130-400); WHITE BLOOD COUNT 8.2 10^3/uL (4.3-11.0)
[2021-09-18 17:44] LABS: BILIRUBIN,URINE NEGATIVE (NEGATIVE); CLARITY,URINE CLEAR; COLOR,URINE YELLOW; GLUCOSE, URINE (UA) NEGATIVE (NEGATIVE); KETONES,URINE NEGATIVE (NEGATIVE); LEUKOCYTE ESTERASE ,URINE 2+ (NEGATIVE); NITRITE,URINE NEGATIVE (NEGATIVE); PROTEIN,URINE NEGATIVE (NEGATIVE)
[2021-09-18 17:45] LABS: ALBUMIN 3.9 GM/DL (3.2-4.5); POTASSIUM 3.8 MMOL/L (3.6-5.0)
[2021-09-18 17:46] LABS: CALCIUM 9.7 MG/DL (8.5-10.1)
[2021-09-18 17:47] LABS: TOTAL PROTEIN 8.4 GM/DL (6.4-8.2)
[2021-09-18 17:49] LABS: BILIRUBIN,TOTAL 0.5 MG/DL (0.1-1.0)
[2021-09-18 17:51] LABS: CREATININE SERUM 0.75 MG/DL (0.60-1.30)
[2021-09-18 17:52] LABS: AMORPHOUS SEDIMENT,UR MOD AMOR PHOSPHATE /LPF; BACTERIA,URINE FEW /HPF
[2021-09-18] MEDS ORDERED: cefTRIAXone 1,000 MG in WATER (STERILE) FOR INJECTION 10 ML IV ONE (18:00)
[2021-09-18] MEDS ORDERED: IOHEXOL 350 MG/ML 100 ML (OMNIPAQUE 350) VIAL IV ONE (18:15)
[2021-09-18] MEDS ORDERED: NS 100 ML (IVPB) BAG IV ONE (18:15)
[2021-09-18] MEDS ORDERED: HOLD METFORMIN - RECEIVED CONTRAST 20 ML VIAL IV SCH (18:15)
--- NOTE | 2021-09-18 18:21 | Diagnostic Imaging Report ---
EXAMINATION: CT abdomen and pelvis with intravenous contrast. TECHNIQUE: Multiple contiguous axial images were obtained through the abdomen and pelvis after the uneventful administration of intravenous contrast. All CT scans use one or more of the following dose optimizing techniques: automated exposure control, MA and/or KvP adjustment based on patient size and exam type or iterative reconstruction. HISTORY: Right upper quadrant pain. COMPARISON: None available. FINDINGS: The heart is unremarkable. The included lung bases are clear. There is hepatic steatosis. Transient hepatic attenuation difference is seen along the periphery of the right hepatic lobe. No focal hepatic lesions are seen. The gallbladder is decompressed. The portal vein is patent. Small areas of delayed cortical enhancement are seen in the kidneys bilaterally, which can be seen with pyelonephritis. No evidence of perinephric fat stranding or renal abscess. No hydronephrosis or renal calculi. The urinary bladder is nondistended. There is mild bladder wall thickening. The liver, spleen, pancreas, and adrenal glands have a normal appearance. There is no pathologically enlarged mesenteric or retroperitoneal adenopathy. The bowel loops are nondilated. Fluid-filled nondilated loops of small bowel are seen in the abdomen and pelvis. The appendix is visualized in the right lower quadrant and has a normal appearance. There is no free fluid or free air. No acute osseous abnormalities. There is no free air, loculated collection, or adenopathy in the pelvis. IMPRESSION: 1. Scattered areas of delayed cortical enhancement in the kidneys bilaterally, concerning for pyelonephritis. No evidence of intrarenal abscess. No hydronephrosis. Recommend correlation with patient history and UA. 2. Mild bladder wall thickening, which may be due to inadequate distention versus cystitis. 3. Nondilated fluid-filled loops of small bowel in the abdomen and pelvis. This can be a normal finding versus mild enteritis. 4. Hepatic steatosis. No focal hepatic lesions. Dictated by: Dictated on workstation # [id number]
[2021-09-18] MEDS ORDERED: POLY17PO6 PO (18:42)
[2021-09-18] MEDS ORDERED: CEFD300C3 PO (18:42)
== END 2021-09-18 18:54 | disposition home or self-care (01) ==
LOC: EDUNIT# 17:10 → ER 17:11
DX: N12 Tubulo-interstitial nephritis, not specified as acute or chronic (principal); K59.00 Constipation, unspecified
CPT/HCPCS: 36415; 74177; 80053; 81000; 83690; 84703; 85025; 87088

== ENCOUNTER 2021-09-26 17:54 | Emergency (ER) | payer SELFPAY ==
[~2021-09-26] VITALS: Ht 160 cm; Wt 78.4 kg
[~2021-09-26 17:54] MED LIST changes: +CEFD300C3 PO; +POLY17PO6 PO
--- NOTE | 2021-09-26 18:22 | ED Abdominal Pain ---
General Chief Complaint: Abdominal/GI Problems Stated Complaint: CP AND STOMACH PAIN Nursing Triage Note: PT PRESENTS TO ED VIA POV FROM HOME WITH COMPLAINTS OF UPPER ABDOMINAL PAIN X2-3 WEEKS, SOB STARTING MIDDLE OF LAST WEEK, AND MEDIAL CHEST PAIN STARTING LAST NIGHT. PT REPORTS SHE JUST FINISHED AN ANTIBIOTIC FOR A KIDNEY INFECTION. PT STATES HER S/S GET WORSE WHEN EATING OR LAYING DOWN. PT STATES SHE WAS TESTED FOR COVID YESTERDAY AT HER WORK AND TESTED NEGATIVE. Source of Information: Patient Exam Limitations: No Limitations History of Present Illness Date Seen by Provider: Sep 26, 2021 Time Seen by Provider: 18:09 Initial Comments Patient is a 26-year-old female who presents to the emergency department with a chief complaint of epigastric abdominal discomfort radiating to the upper quadrants of the abdomen bilaterally. Patient states onset of symptoms about a week ago shortly after finishing a prescription for pyelonephritis. Medication was cefdinir. Patient endorses mild nausea. She states her symptoms are worse with laying down and after food. She has taken some ibuprofen without relief of symptoms. She states she feels a little short of breath. Patient also states that her symptoms are worse more specifically in the morning when she wakes up. She has never been diagnosed with GERD before. Has not taken any medications for this. She denies any fevers, chills, cough or congestion. She was Covid tested yesterday and was negative. She denies diarrhea, black or bloody stools, problems with urination. Last menstrual cycle was at the beginning of . Patient states she is not on control. Her menstrual cycles are irregular at baseline. Currently having mild to moderate symptoms. All other review of systems reviewed and negative except as stated. Timing/Duration: 1 Week Severity/Quality: Moderate Location: Epigastric Radiation: RUQ, LUQ Activities at Onset: Sleeping, Other (Eating) Associated Symptoms: Nausea/Vomiting (Mild nausea) Allergies and Home Medications Allergies Coded Allergies: No Known Drug Allergies (Unverified , 06/13/12) Patient Home Medication List Home Medication List Reviewed: Yes Azithromycin (Azithromycin) 250 Mg Tablet, 250 MG PO UD Prescribed by: WOLF TY on 11/29/18 1333 Cefdinir (Cefdinir) 300 Mg Capsule, 300 MG PO BID Prescribed by: WOLF TY on 09/18/21 251 Cyclobenzaprine HCl (Cyclobenzaprine HCl) 10 Mg Tablet, 10 MG PO Q8H Prescribed by: ARYAN ARREGUIN on 04/24/18 0400 D-Methorphan Hb/P-Epd HCl/Bpm (Bromfed Dm Cough Syrup) 118 Ml Syrup, 5 ML PO Q4H PRN for CONGESTION Prescribed by: WOLF TY on 11/29/18 1255 Dicloxacillin Sodium (Dicloxacillin Sodium) 500 Mg Capsule, 500 MG PO QID Prescribed by: ARYAN ARREGUIN on 05/28/172108 Hydrocodone Bit/Acetaminophen (Lortab 7.5 Mg Tablet) 1 Each Tablet, 1-2 EACH PO Q4H Prescribed by: ARYAN ARREGUIN on 05/28/172108 Naproxen (Naproxen) 500 Mg Tablet, 500 MG PO BID Prescribed by: ARYAN ARREGUIN on 04/24/18 040 Ondansetron (Ondansetron Odt) 4 Mg Tab.rapdis, 4 MG PO Q6H PRN for NAUSEA /VOMITING Prescribed by: BOGDAN BENSON on 12/27/20 1149 Polyethylene Glycol 3350 (Miralax) 17 Gm Powd.pack, 17 GM PO BID Prescribed by: WOLF TY on 09/18/21 184 [biotin] , (Reported) Entered as Reported by: CEDRIC ACEVES on 05/28/171921 [[place]] , (Reported) Entered as Reported by: CEDRIC ACEVES on 05/28/171921 Review of Systems Review of Systems Constitutional: see HPI EENTM: No Symptoms Reported Respiratory: No Symptoms Reported Cardiovascular: Chest Pain Gastrointestinal: Abdominal Pain, Nausea Genitourinary: No Symptoms Reported Musculoskeletal: no symptoms reported Skin: no symptoms reported All Other Systems Reviewed Negative Unless Noted: Yes Past Niqcdma-Vxboxx-Prouvm Hx Patient Social History Tobacco Use?: No Substance use?: No Alcohol Use?: Yes Alcohol Frequency: Once in a while Pt feels they are or have been: No Immunizations Up To Date Tetanus Booster (TDap): Unknown PED Vaccines UTD: No First/Initial COVID19 Vaccinat: NO Second COVID19 Vaccination Emiliano: NO Seasonal Allergies Seasonal Allergies: No Past Medical History Surgeries: No Respiratory: No Cardiac: No Neurological: No Reproductive Disorders: No Genitourinary: No Gastrointestinal: No Musculoskeletal: No Endocrine: No HEENT: No Cancer: No Psychosocial: No Integumentary: Yes (MASTITIS) Blood Disorders: Yes (ANEMIA) Family Medical History Patient reports no known family medical history. Physical Exam Vital Signs Vital Signs - First Documented 09/26/21 18:06 Temp 36.1 Pulse 80 Resp 18 B/P (MAP) 133/90 (104) Pulse Ox 98 Capillary Refill : Less Than 3 Seconds Height/Weight/BMI Height: 5'3.00" Weight: 160lbs. 6.0oz. 72.606536dx; 30.00 BMI Method:Stated General Appearance: WD/WN, no apparent distress HEENT: PERRL/EOMI Neck: normal inspection Respiratory: lungs clear, normal breath sounds, no respiratory distress, no accessory muscle use Cardiovascular: regular rate, rhythm, other (2+ radial pulses right) Gastrointestinal: normal bowel sounds, soft, tenderness (Mild epigastric tenderness on palpation) Extremities: normal range of motion, non-tender, normal inspection Neurologic/Psychiatric: alert, normal mood/affect, oriented x 3 Skin: normal color, warm/dry Progress/Results/Core Measures Results/Orders My Orders Orders - ESAU DOUGLAS MD Urine Bedside (09/26/21 18:18) Ekg Tracing (09/26/21 18:18) Lidocaine 2% Viscous 15 Ml (Xylocaine Vi (09/26/21 18:30) Sucralfate Tablet (Carafate Tablet) (09/26/21 18:30) Antacid Suspension (Mylanta Suspension (09/26/21 18:30) Medications Given in ED Current Medications Medications Dose Ordered Sig/Jorge Route Start Time Stop Time Status Last Admin Dose Admin Al Hydrox/Mg Hydrox/Simethicone 30 ml ONCE ONCE PO 09/26/21 18:30 09/26/21 18:31 DC 09/26/21 18:25 30 ML Lidocaine HCl 5 ml ONCE ONCE PO 09/26/21 18:30 09/26/21 18:31 DC 09/26/21 18:25 5 ML Sucralfate 1 gm ONCE ONCE PO 09/26/21 18:30 09/26/21 18:31 DC 09/26/21 18:25 1 GM Vital Signs/I&O 09/26/21 18:06 Temp 36.1 Pulse 80 Resp 18 B/P (MAP) 133/90 (104) Pulse Ox 98 Blood Pressure Mean: 104 Progress Progress Note : Time: 18:42 Progress Note Patient EKG looks 100% normal. No ST segment changes at all noted. No ectopy. Low suspicion for anything cardiac related, she has no history of hypertension, non smoker, no first degree family history of cardiac issues. Not truly exertional in nature, more food and position change exacerbate her symptoms. Will recommend out patient acid reducers (eg prilosec/pepcid) for the next 3-4 weeks and follow up with PCP. All of this is reviewed with the patient. All questions are sought and answered. Patient is stable for discharge. Initial ECG Impression Date: Sep 26, 2021 Initial ECG Impression Time: 18:28 Initial ECG Rate: 77 Initial ECG Rhythm: Normal Sinus Initial ECG Intervals: Normal Initial ECG Intervals GA 131 QRS 79 Qtc 410 Initial ECG Impression: Normal Departure Impression Primary Impression: GERD (gastroesophageal reflux disease) Qualified Codes: K21.9 - Gastro-esophageal reflux disease without esophagitis Disposition: 01 HOME, SELF-CARE Condition: Stable Departure-Patient Inst. Decision time for Depature: 18:46 Referrals: ANEL VOSS MD (PCP/Family) Primary Care Physician Patient Instructions: Acid Reflux and Gastroesophageal Reflux Disease in Adults Add. Discharge Instructions: Try to avoid eating late at night (at least 2 hours before bed). Start an over the counter acid ironer or presser such as pepcid OR prilosec (generic is ok). Take this daily for 3-4 weeks. Follow up with a primary care physician. Return to the ER for any new, concerning or emergent symptoms. ESAU DOUGLAS MD Sep 26, 2021 18:22
[2021-09-26] MEDS ORDERED: ANTACID SUSP 30 ML UDC (MYLANTA) PO ONE (18:30)
[2021-09-26] MEDS ORDERED: LIDOCAINE 2% VISCOUS 15 ML UDC PO ONE (18:30)
[2021-09-26] MEDS ORDERED: SUCRALFATE 1 GM (CARAFATE) TAB PO ONE (18:30)
[2021-09-26 18:52] VITALS: BP 133/90
== END 2021-09-26 18:52 | disposition home or self-care (01) ==
LOC: EDUNIT# 17:54 → ER 17:56
DX: K21.9 Gastro-esophageal reflux disease without esophagitis (principal); Z20.822 Contact with and (suspected) exposure to COVID-19
CPT/HCPCS: 84703; 93005

== ENCOUNTER 2022-06-10 18:05 | Emergency (ER) | payer SELFPAY ==
[~2022-06-10] VITALS: Ht 160 cm; Wt 80.0 kg
[~2022-06-10 18:05] MED LIST changes: +CYCL10TA25 PO; -CYCL10TA9 PO
[2022-06-10] MEDS ORDERED: IBUPROFEN 600 MG (MOTRIN) TAB PO ONE (18:30)
--- NOTE | 2022-06-10 18:50 | ED Cough/URI ---
General Chief Complaint: COVID19 Suspect/Confirmed Stated Complaint: HEADACHE/NAUSEA/FATIGUE/COUGH/FEVER Nursing Triage Note: PT STATES HAS BEEN SICK SINCE SATURDAY. PT HAS BEEN EXPOSED TO COVID AT WORK. PT HAS HAD FEVER, SORETHROAT, COUGH AND NAUSEA. Source: patient (KIMANI RAMÍREZ) History of Present Illness Date Seen by Provider: Jun 10, 2022 Time Seen by Provider: 18:47 Initial Comments This is a 27-year-old female that presents to the emergency room for COVID evaluation. She was exposed to someone at work and now is having a fever, sore throat cough and congestion. Severity/Quality: no cough Prior Episodes/Possible Cause: no prior episodes (KIMANI RAMÍREZ) Allergies and Home Medications Allergies Coded Allergies: No Known Drug Allergies (Unverified , 06/13/12) Patient Home Medication List Home Medication List Reviewed: Yes (KIMANI RAMÍREZ) Albuterol Sulfate (Proair Hfa) 1 Puff Puff, 2 PUFF IH Q4H Prescribed by: Kirby Ramírez on 06/10/22 1858 Azithromycin (Azithromycin) 250 Mg Tablet, 250 MG PO UD Prescribed by: WOLF TY on 11/29/18 1333 Cefdinir (Cefdinir) 300 Mg Capsule, 300 MG PO BID Prescribed by: WOLF TY on 09/18/21 1842 Cyclobenzaprine HCl (Cyclobenzaprine HCl) 10 Mg Tablet, 10 MG PO Q8H Prescribed by: ARYAN BAKER on 04/24/18 0400 D-Methorphan Hb/P-Epd HCl/Bpm (Bromfed Dm Cough Syrup) 118 Ml Syrup, 5 ML PO Q4H PRN for CONGESTION Prescribed by: WOLF TY on 11/29/18 1255 Dicloxacillin Sodium (Dicloxacillin Sodium) 500 Mg Capsule, 500 MG PO QID Prescribed by: ARYAN BAKER on 05/28/17 210 Hydrocodone Bit/Acetaminophen (Lortab 7.5 Mg Tablet) 1 Each Tablet, 1-2 EACH PO Q4H Prescribed by: ARYAN BAKER on 05/28/172108 Naproxen (Naproxen) 500 Mg Tablet, 500 MG PO BID Prescribed by: ARYAN BAKER on 04/24/18 0400 Ondansetron (Ondansetron Odt) 4 Mg Tab.rapdis, 4 MG PO Q6H PRN for NAUSEA/VOMITING Prescribed by: BOGDAN BENSON on 12/27/20 1149 Polyethylene Glycol 3350 (Miralax) 17 Gm Powd.pack, 17 GM PO BID Prescribed by: WOLF TY on 09/18/21 1842 Promethazine/Dextromethorphan (Promethazine-Dm Syrup) 6.25 Mg-15 Mg/5 Ml Syrup, 5 ML PO Q6H PRN for COUGH Prescribed by: Kirby Ramírez on 06/10/22 185 [biotin] , (Reported) Entered as Reported by: CEDRIC ACEVES on 05/28/171921 [fenugreek] , (Reported) Entered as Reported by: CEDRIC ACEVES on 05/28/171921 Review of Systems Review of Systems Constitutional: chills EENTM: nose congestion Respiratory: cough Cardiovascular: no symptoms reported Gastrointestinal: no symptoms reported Genitourinary: no symptoms reported Musculoskeletal: no symptoms reported Skin: no symptoms reported Psychiatric/Neurological: No Symptoms Reported Hematologic/Lymphatic: No Symptoms Reported Immunological/Allergic: no symptoms reported (KIMANI RAMÍREZ) Past Whuapmo-Cjmbmt-Xwxdir Hx Immunizations Up To Date Tetanus Booster (TDap): Unknown PED Vaccines UTD: No First/Initial COVID19 Vaccinat: NO Second COVID19 Vaccination Emiliano: NO (KIMANI RAMÍREZ) Seasonal Allergies Seasonal Allergies: No (KIMANI RAMÍREZ) Past Medical History Surgeries: No Respiratory: No Cardiac: No Neurological: No Reproductive Disorders: No Genitourinary: No Gastrointestinal: No Musculoskeletal: No Endocrine: No HEENT: No Cancer: No Psychosocial: No Integumentary: Yes (MASTITIS) Blood Disorders: Yes (ANEMIA) (KIMANI RAMÍREZ) Family Medical History Patient reports no known family medical history. Physical Exam Vital Signs - First Documented 06/10/22 18:09 Temp 38.2 Pulse 97 Resp 18 B/P (MAP) 130/93 (105) Pulse Ox 97 (HIEN ALFONSO MD) Capillary Refill : Less Than 3 Seconds (KIMANI RAMÍREZ) Height: 5'3.00" Weight: 160lbs. 6.0oz. 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, no motor/sensory deficits, oriented x 3 Skin: normal color, warm/dry (KIMANI RAMÍREZ) Progress/Results/Core Measures Suspected Sepsis SIRS Temperature: Pulse: 97 Respiratory Rate: 18 Blood Pressure 130 /93 Mean: 105 (KIMANI RAMÍREZ) Results/Orders Lab Results Laboratory Tests Test 06/10/22 18:11 Range/Units Influenza Type A (RT-PCR) Not Detected Not Detecte Influenza Type B (RT-PCR) Not Detected Not Detecte SARS-CoV-2 RNA (RT-PCR) Detected H Not Detecte (HIEN ALFONSO MD) Vital Signs/I&O 06/10/22 06/10/22 18:09 19:04 Temp 38.2 38.2 Pulse 97 97 Resp 18 18 B/P (MAP) 130/93 (105) 130/93 Pulse Ox 97 97 (HIEN ALFONSO MD) Vital Signs/I&O Capillary Refill : Less Than 3 Seconds (KIMANI RAMÍREZ) Blood Pressure Mean: 105 Departure Communication (Admissions) Patient is covid+. Her symptoms are mild. Discussed quarantine. (KIMANI RAMÍREZ) Impression Primary Impression: COVID-19 Disposition: 01 HOME, SELF-CARE Condition: Stable Departure-Patient Inst. Decision time for Depature: 18:53 (KIMANI RAMÍREZ) Referrals: ANEL VOSS MD (PCP/Family) Primary Care Physician Patient Instructions: COVID-19 (DC) Add. Discharge Instructions: Please follow up with your primary care provider as we discussed. Follow the CDC guidelines for your quarantine. All discharge instructions reviewed with patient and/or family. Voiced understanding. Scripts Promethazine/Dextromethorphan (Promethazine-Dm Syrup) 6.25 Mg-15 Mg/5 Ml Syrup 5 ML PO Q6H PRN for COUGH for 7 Days, #240 ML Prov: KIMANI RAMÍREZ 06/10/22 Albuterol Sulfate (PROAIR HFA) 1 Puff Puff 2 PUFF IH Q4H for Cough for 7 Days, #1 EA 1 PUFF = 90 MCG Prov: KIMANI RAMÍREZ 06/10/22 ATTENDING PHYSICIAN NOTE: I was physically present as attending physician in the emergency department during the care of this patient, but I was not directly involved in the decision making or delivery of care for this patient. Attending transitioned to Dr. Baker during the care of this patient. (HIEN ALFONSO MD) KIMANI RAMÍREZ Jun 10, 2022 18:50 HIEN ALFONSO MD Jun 12, 2022 18:15
[2022-06-10] MEDS ORDERED: RT-ALBUINH IH (18:58)
[2022-06-10] MEDS ORDERED: D-ME473S11 PO (18:58)
[2022-06-10 19:04] VITALS: BP 130/93
== END 2022-06-10 19:04 | disposition home or self-care (01) ==
LOC: EDUNIT# 18:05 → ER 18:06
DX: U07.1 COVID-19 (principal); Z28.310 Unvaccinated for COVID-19
CPT/HCPCS: 87636; 99283

== ENCOUNTER 2023-02-11 12:47 | Emergency (ER) | payer SELFPAY ==
[~2023-02-11] VITALS: Ht 160 cm; Wt 80.7 kg
[~2023-02-11 12:47] MED LIST changes: +ALBU8.5H6 IH; +D-ME473S11 PO
[2023-02-11] MEDS ORDERED: cefTRIAXone 1 GM PRE-MIX 50 ML IV STA (13:08)
[2023-02-11] MEDS ORDERED: NS IV 1000 ML 1,000 ML IV STA ×2 (13:08→14:16)
[2023-02-11 13:12] LABS: BILIRUBIN,URINE NEGATIVE (NEGATIVE); CLARITY,URINE CLEAR; COLOR,URINE YELLOW; GLUCOSE, URINE (UA) NEGATIVE (NEGATIVE); KETONES,URINE 1+ (NEGATIVE); LEUKOCYTE ESTERASE ,URINE 3+ (NEGATIVE); NITRITE,URINE NEGATIVE (NEGATIVE); PH,URINE 6.5 (5-9); PROTEIN,URINE TRACE (NEGATIVE)
[2023-02-11] MEDS ORDERED: ACETAMINOPHEN 325 MG TABLET PO ONE (13:15)
--- NOTE | 2023-02-11 13:15 | ED GU-Female ---
General Chief Complaint: - Reproductive Stated Complaint: UTI Nursing Triage Note: PT AMBULATORY TO ER. PT REPORTS DYSURIA ONSET THIS PAST SATURDAY. PT ALSO REPORTS GENERALIZED BODY ACHES AND FEVER. Source: patient Exam Limitations: no limitations History of Present Illness Date Seen by Provider: Feb 11, 2023 Time Seen by Provider: 13:13 Initial Comments Patient is a 27-year-old female who presents the ED with frequent urination and pain with urination. She states symptoms started last . She states she has been urinating several times a day with discomfort. She reports temperature as high as 102. Has been taking ibuprofen. She took ibuprofen right before arrival. Today she started having body aches chills weakness. Started having some upper abdominal discomfort. History of urinary tract infections and states this feels very similar. Last menstrual cycle was a little less than a month ago. History of regular menstrual cycle. Not concern for . No history of previous abdominal surgery. Denies cough, chest pain, shortness of breath, headache, dizziness, ear pain, sore throat, vomiting, diarrhea. She denies of any vaginal discharge or concern for sexual transmitted affection Allergies and Home Medications Allergies Coded Allergies: No Known Drug Allergies (Unverified , 06/13/12) Patient Home Medication List Home Medication List Reviewed: Yes Albuterol Sulfate (Ventolin Hfa) 1 Puff Puff, 2 PUFF IH Q4H Prescribed by: Kirby Ramírez on 06/10/22 1858 Azithromycin (Azithromycin) 250 Mg Tablet, 250 MG PO UD Prescribed by: WOLF TY on 11/29/18 1333 Cefdinir (Cefdinir) 300 Mg Capsule, 300 MG PO BID Prescribed by: WOLF TY on 09/18/21 1842 Cefdinir (Cefdinir) 300 Mg Capsule, 300 MG PO BID Prescribed by: ALIVIA FLORES on 02/11/23 1546 Cyclobenzaprine HCl (Cyclobenzaprine HCl) 10 Mg Tablet, 10 MG PO Q8H Prescribed by: ARYAN ARREGUIN on 04/24/18 0400 D-Methorphan Hb/P-Epd HCl/Bpm (Bromfed Dm Cough Syrup) 118 Ml Syrup, 5 ML PO Q4H PRN for CONGESTION Prescribed by: WOLF TY on 11/29/18 1255 Dicloxacillin Sodium (Dicloxacillin Sodium) 500 Mg Capsule, 500 MG PO QID Prescribed by: ARYAN ARREGUIN on 05/28/172108 Hydrocodone Bit/Acetaminophen (Lortab 7.5 Mg Tablet) 1 Each Tablet, 1-2 EACH PO Q4H Prescribed by: ARYAN ARREGUIN on 05/28/172108 Naproxen (Naproxen) 500 Mg Tablet, 500 MG PO BID Prescribed by: ARYAN ARREGUIN on 04/24/18 0400 Ondansetron (Ondansetron Odt) 4 Mg Tab.rapdis, 4 MG PO Q6H PRN for NAUSEA/VOMITING Prescribed by: BOGDAN BENSON on 12/27/20 114 Polyethylene Glycol 3350 (Miralax) 17 Gm Powd.pack, 17 GM PO BID Prescribed by: WOLF TY on 09/18/21 184 Promethazine/Dextromethorphan (Promethazine-Dm Syrup) 6.25 Mg-15 Mg/5 Ml Syrup, 5 ML PO Q6H PRN for COUGH Prescribed by: Kirby Ramírez on 06/10/22 185 [biotin] , (Reported) Entered as Reported by: CEDIRC ACEVES on 05/28/171921 [fenugreek] , (Reported) Entered as Reported by: CEDRIC ACEVES on 05/28/171921 Review of Systems Review of Systems Constitutional: chills, fever, malaise, weakness EENTM: No ear discharge, No hearing loss, No ear pain, No mouth pain, No mouth swelling Respiratory: No cough Cardiovascular: No chest pain Gastrointestinal: abdominal pain; No diarrhea, No nausea, No vomiting Genitourinary: burning; denies discharge; dysuria, frequency Musculoskeletal: No back pain, No joint pain Skin: No change in color, No change in hair/nails All Other Systemes Reviewed Negative Unless Noted: Yes Past Eraayju-Eocqgq-Olvctv Hx Patient Social History Tobacco Use?: No Use of E-Cig and/or Vaping dev: No Substance use?: No Alcohol Use?: Yes Pt feels they are or have been: No Immunizations Up To Date Tetanus Booster (TDap): Unknown PED Vaccines UTD: No First/Initial COVID19 Vaccinat: DENIES Second COVID19 Vaccination Emiilano: NO Seasonal Allergies Seasonal Allergies: No Past Medical History Surgeries: No Respiratory: No Cardiac: No Neurological: No Last Menstrual Period: Jan 16, 2023 Reproductive Disorders: No Genitourinary: No Gastrointestinal: No Musculoskeletal: No Endocrine: No HEENT: No Cancer: No Psychosocial: No Integumentary: Yes (MASTITIS) Blood Disorders: Yes (ANEMIA) Family Medical History Patient reports no known family medical history. Physical Exam Vital Signs Vital Signs - First Documented 02/11/23 12:53 Temp 37.7 Pulse 120 Resp 18 B/P (MAP) 135/84 (101) Pulse Ox 100 O2 Delivery Room Air Capillary Refill : Height, Weight, BMI Height: 5'3.00" Weight: 160lbs. 6.0oz. 72.394264hr; 31.00 BMI Method:Stated General Appearance: WD/WN, no apparent distress HEENT: PERRL/EOMI, normal ENT inspection, TMs normal, pharynx normal Neck: non-tender, full range of motion, supple, normal inspection Cardiovascular: no edema, no gallop, no JVD, tachycardia Respiratory: chest non-tender, lungs clear, normal breath sounds, no res piratory distress, no accessory muscle use Gastrointestinal: normal bowel sounds, non tender, soft, no organomegaly Pelvic: normal external exam, normal adnexa, no cerv. 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, no motor/sensory deficits, alert, normal mood/affect, oriented x 3 Skin: normal color, warm/dry Focused Exam Lactate Level 02/11/23 13:18: Lactic Acid Level 0.72 Lactic Acid Level Progress/Results/Core Measures Suspected Sepsis SIRS Temperature: Pulse: 120 Respiratory Rate: 18 Laboratory Tests 02/11/23 13:18: White Blood Count 10.7 Blood Pressure 135 /84 Mean: 101 02/11/23 13:18: Lactic Acid Level 0.72 Laboratory Tests 02/11/23 13:18: Creatinine 0.77, Platelet Count 145, Total Bilirubin 0.6 Results/Orders Lab Results Laboratory Tests Test 02/11/23 12:58 02/11/23 13:18 Range/Units Urine Color YELLOW Urine Clarity CLEAR Urine pH 6.5 5-9 Urine Specific [place] <=1.005 1.016-1.022 Urine Protein TRACE H NEGATIVE Urine Glucose (UA) NEGATIVE NEGATIVE Urine Ketones 1+ H NEGATIVE Urine Nitrite NEGATIVE NEGATIVE Urine Bilirubin NEGATIVE NEGATIVE Urine Urobilinogen 0.2 < = 1.0 MG/DL Urine Leukocyte Esterase 3+ H NEGATIVE Urine RBC (Auto) 3+ H NEGATIVE Urine RBC 2-5 H /HPF Urine WBC 10-25 H /HPF Urine Squamous Epithelial Cells 2-5 /HPF Urine Crystals NONE /LPF Urine Bacteria MODERATE H /HPF Urine Casts NONE /LPF Urine Mucus NEGATIVE /LPF Urine Culture Indicated YES Urine Test NEGATIVE NEGATIVE White Blood Count 10.7 4.3-11.0 10^3/uL Red Blood Count 4.35 3.80-5.11 10^6/uL Hemoglobin 11.6 11.5-16.0 g/dL Hematocrit 35 35-52 % Mean Corpuscular Volume 80 80-99 fL Mean Corpuscular Hemoglobin 27 25-34 pg Mean Corpuscular Hemoglobin Concent 33 32-36 g/dL Red Cell Distribution Width 14.0 10.0-14.5 % Platelet Count 145 130-400 10^3/uL Mean Platelet Volume 10.2 9.0-12.2 fL Immature Granulocyte % (Auto) 1 % Neutrophils (%) (Auto) 77 H 42-75 % Lymphocytes (%) (Auto) 10 L 12-44 % Monocytes (%) (Auto) 12 0-12 % Eosinophils (%) (Auto) 0 0-10 % Basophils (%) (Auto) 0 0-10 % Neutrophils # (Auto) 8.3 H 1.8-7.8 10^3/uL Lymphocytes # (Auto) 1.1 1.0-4.0 10^3/uL Monocytes # (Auto) 1.3 H 0.0-1.0 10^3/uL Eosinophils # (Auto) 0.0 0.0-0.3 10^3/uL Basophils # (Auto) 0.0 0.0-0.1 10^3/uL Immature Granulocyte # (Auto) 0.1 0.0-0.1 10^3/uL Sodium Level 134 L 135-145 MMOL/L Potassium Level 3.0 L 3.6-5.0 MMOL/L Chloride Level 102 98-107 MMOL/L Carbon Dioxide Level 20 L 21-32 MMOL/L Anion Gap 12 5-14 MMOL/L Blood Urea Nitrogen 11 7-18 MG/DL Creatinine 0.77 0.60-1.30 MG/DL Estimat Glomerular Filtration Rate 107 BUN/Creatinine Ratio 14 Glucose Level 106 H 70-105 MG/DL Lactic Acid Level 0.72 0.50-2.00 MMOL/L Calcium Level 9.0 8.5-10.1 MG/DL Corrected Calcium 9.3 8.5-10.1 MG/DL Total Bilirubin 0.6 0.1-1.0 MG/DL Aspartate Amino Transf (AST/SGOT) 15 5-34 U/L Alanine Aminotransferase (ALT/SGPT) 16 0-55 U/L Alkaline Phosphatase 101 40-136 U/L C-Reactive Protein High Sensitivity 23.42 H 0.00-0.50 MG/DL Total Protein 7.4 6.4-8.2 GM/DL Albumin 3.6 3.2-4.5 GM/DL My Orders Orders - SHARRI COLEMAN Ua Culture If Indicated (02/11/23 12:59) Hcg,Qualitative Urine (02/11/23 12:59) Cbc With Automated Diff (02/11/23 13:08) Comprehensive Metabolic Panel (02/11/23 13:08) Ns Iv 1000 Ml (Sodium Chloride 0.9%) (02/11/23 13:08) Blood Culture (02/11/23 13:08) Lactic Acid Analyzer (02/11/23 13:08) Hs C Reactive Protein (02/11/23 13:08) Ceftriaxone 1 Gm Pre-Mix (Rocephin 1 Gm (02/11/23 13:08) Acetaminophen Tablet/Caplet (Tylenol T (02/11/23 13:15) Blood Culture (02/11/23 13:25) Urine Culture (02/11/23 12:58) Ns Iv 1000 Ml (Sodium Chloride 0.9%) (02/11/23 14:16) Potassium Chloride (Tablet) (K Dur Table (02/11/23 14:30) Medications Given in ED Current Medications Medications Dose Ordered Sig/Jorge Route Start Time Stop Time Status Last Admin Dose Admin Acetaminophen 650 mg ONCE ONCE PO 02/11/23 13:15 02/11/23 13:16 DC 02/11/23 13:27 650 MG Potassium Chloride 20 meq ONCE ONCE PO 3/13/23 14:30 02/11/23 14:31 DC 02/11/23 14:26 20 MEQ Vital Signs/I&O 02/11/23 02/11/23 02/11/23 02/11/23 12:53 13:28 14:09 14:31 Temp 37.7 Pulse 120 114 106 100 Resp 18 18 18 18 B/P (MAP) 135/84 (101) 135/83 (100) 135/83 (100) 114/67 (83) Pulse Ox 100 99 99 99 O2 Delivery Room Air Room Air Room Air Room Air 02/11/23 02/11/23 14:58 15:56 Pulse 88 94 Resp 18 B/P (MAP) 114/67 (83) 116/74 Pulse Ox 98 O2 Delivery Room Air Room Air Capillary Refill : Blood Pressure Mean: 101 Departure Communication (PCP) Reviewed previous ER visits, lab test. History of UTI and pyelonephritis. Patient presents ED fever and urinary symptoms. On exam she has no abdominal tenderness, flank tenderness. She was tachycardic and febrile. Due to her current complaints urinalysis, sepsis protocol was initiated. Differential diagnosis of urinary tract infection, pyelonephritis, PID. Blood cultures pending. Started on a liter of fluid. Urinalysis returned as a urinary tract infection negative for . Normal CBC. CMP showed sodium 130, potassium 3.0. She was given oral potassium 20 mill equivalent. CRP at 23. Patient was given a gram of Rocephin. Normal lactic acid. Was given a second round of fluid with Tylenol for her fever. She had no abdominal tenderness on palpation. Imaging was held at this time. Suspect urinary tract infection as a source. Culture pending. Improvement of fever and heart rate. Patient will be discharged with cefdinir. Continue monitoring urinary symptoms. If any wors ening symptoms such as abdominal pain, fever or urinary symptoms return back to ED. Follow-up your PCP in 4 to 5 days with recheck with urinalysis. Ibuprofen Tylenol for fever Impression Primary Impression: UTI (urinary tract infection) Disposition: 01 HOME, SELF-CARE Condition: Stable Departure-Patient Inst. Decision time for Depature: 14:59 Referrals: ANEL VOSS MD (PCP/Family) Primary Care Physician Patient Instructions: Urinary Tract Infection, Adult (DC) Scripts Cefdinir (Cefdinir) 300 Mg Capsule 300 MG PO BID for 7 Days, #14 CAP Prov: SHARRI COLEMAN 02/11/23 Work/School Note: Work Release Form Date Seen in the Emergency Department: Feb 11, 2023 Return to Work: Feb 13, 2023 SHARRI COLEMAN Feb 11, 2023 13:15
[2023-02-11 13:28] LABS: BACTERIA,URINE MODERATE /HPF
[2023-02-11 13:28] LABS: BASOPHILS % (AUTO) 0 % (0-10); EOSINOPHILS % (AUTO) 0 % (0-10); HEMATOCRIT 35 % (35-52); HEMOGLOBIN 11.6 g/dL (11.5-16.0); LYMPHOCYTES # (AUTO) 1.1 10^3/uL (1.0-4.0); LYMPHOCYTES % (AUTO) 10 % (12-44); MEAN CORPUSCULAR HEMOGLOBIN 27 pg (25-34); MEAN CORPUSCULAR HGB CONC 33 g/dL (32-36); MEAN CORPUSCULAR VOLUME 80 fL (80-99); MEAN PLATELET VOLUME 10.2 fL (9.0-12.2); MONOCYTES # (AUTO) 1.3 10^3/uL (0.0-1.0); MONOCYTES % (AUTO) 12 % (0-12); NEUTROPHILS # (AUTO) 8.3 10^3/uL (1.8-7.8); NEUTROPHILS % (AUTO) 77 % (42-75); PLATELET COUNT 145 10^3/uL (130-400); WHITE BLOOD COUNT 10.7 10^3/uL (4.3-11.0)
[2023-02-11 13:35] LABS: ALBUMIN 3.6 GM/DL (3.2-4.5)
[2023-02-11 13:38] LABS: TOTAL PROTEIN 7.4 GM/DL (6.4-8.2)
[2023-02-11 13:39] LABS: BILIRUBIN,TOTAL 0.6 MG/DL (0.1-1.0)
[2023-02-11 13:41] LABS: CREATININE SERUM 0.77 MG/DL (0.60-1.30)
[2023-02-11] MEDS ORDERED: KCL 20 MEQ TAB (K-DUR) PO ONE (14:30)
[2023-02-11] MEDS ORDERED: CEFD300C3 PO (15:46)
[2023-02-11 15:56] VITALS: BP 116/74
== END 2023-02-11 15:56 | disposition home or self-care (01) ==
LOC: EDUNIT# 12:47 → ER 12:51
DX: N39.0 Urinary tract infection, site not specified (principal); R00.0 Tachycardia, unspecified; Z28.310 Unvaccinated for COVID-19
CPT/HCPCS: 36415; 80053; 81000; 83605; 84703; 85025; 86141; 87040; 87077; 87088; 87186